=== PATIENT | female | born 1935 | race Caucasian/White ===

== ENCOUNTER 2022-06-08 14:47 | Inpatient (IN) | payer BC, OTHER ==
[~2022-06-08] VITALS: Ht 175.3 cm; Wt 72.1 kg
[~2022-06-08 14:47] MED LIST: DEXAMETHASONE SOD PHOSPHATE 4 MG/ML VIAL ONE; ONDANSETRON HCL 4 MG/2 ML VIAL ONE; PROPOFOL 200MG/ 20ML VIAL (DIPRIVAN) IV ONE; SEVOFLURANE 15 MIN GAS INH ONE; ceFAZolin SODIUM 2 GM VIAL ONE; fentaNYL CITRATE/PF 100 MCG/2 ML AMP ONE
--- NOTE | 2022-06-08 15:02 | NUR ---
Patient to ER bed 01 to gown for evaluation. Side rails up.
--- NOTE | 2022-06-08 15:05 | NUR ---
Pt brought by ambulance,Alert x 1, pt presents to ER altered, pt was found on the floor during a wellfare check, discoloration noted on R arm, intact ROM, skin is dry, pt unable to recall fall mechanism, VSS, will cont to monitor.
[2022-06-08 15:06] VITALS: BP_SYST 173
--- NOTE | 2022-06-08 15:47 | NUR ---
Pt off the unit for CT
--- NOTE | 2022-06-08 16:00 | NUR ---
Pt resting in bed, no s/s of distress
[2022-06-08 16:02] LABS: BASOPHILS % (AUTO) 0.4 % (0.0-2.0); EOSINOPHILS % (AUTO) 0.1 % (0.0-4.0); HEMATOCRIT 40.2 % (36-48); HEMOGLOBIN 13.3 g/dL (12.0-16.0); LYMPHOCYTES # (AUTO) 0.9 K/uL (1.0-5.5); LYMPHOCYTES % (AUTO) 8.6 % (20.5-51.5); MEAN CORPUSCULAR HEMOGLOBIN 28 pg (27-31); MEAN CORPUSCULAR HGB CONC 33 % (32-36); MEAN CORPUSCULAR VOLUME 85 fL (79.0-98.0); MONOCYTES # (AUTO) 0.8 K/uL (0.0-1.0); MONOCYTES % (AUTO) 7.8 % (1.7-9.3); NEUTROPHILS # (AUTO) 8.8 K/uL (1.8-7.7); NEUTROPHILS % (AUTO) 83.1 % (40.0-70.0); PLATELET COUNT (AUTO) 361 K/uL (130-430); RED BLOOD CELL COUNT(AUTO) 4.75 MIL/uL (4.2-6.2); RED CELL DISTRIBUTION WIDTH 15.5 % (9.0-15.0); WHITE BLOOD COUNT (AUTO) 10.6 K/uL (4.8-10.8)
[2022-06-08 16:50] LABS: INR 1.1 (0.8-1.2); PROTHROMBIN TIME 11.1 SECS (9.5-12.5)
[2022-06-08 16:52] LABS: BILIRUBIN,URINE NEGATIVE (NEGATIVE); CLARITY/URINE CLEAR (CLEAR); COLOR,URINE YELLOW (YELLOW); GLUCOSE,URINE NEGATIVE (NEGATIVE); KETONES,URINE 1+ (NEGATIVE); LEUKOCYTE ESTERASE ,URINE NEGATIVE (NEGATIVE); NITRITE, URINE NEGATIVE (NEGATIVE); PH,URINE 5.5 (5.0-8.0); PROTEIN URINE NEGATIVE (NEGATIVE); UROBILINOGEN,URINE 0.2 (0.2-1.0)
[2022-06-08 16:55] LABS: BLOOD, URINE TRACE (NEGATIVE)
[2022-06-08 16:58] LABS: ANION GAP 17 (5-15); CALCIUM 9.4 mg/dL (8.4-11.0); CHLORIDE 99 mmol/L (98-107); CREATININE 1.81 mg/dL (0.55-1.30); GLUCOSE 105 mg/dL (70-99); UREA NITROGEN, BLOOD 64 mg/dL (8-21)
[2022-06-08 17:08] LABS: GFR AFRICAN AMERICAN 36 mL/min (>90)
[2022-06-08 17:14] LABS: ALANINE AMINOTRANSFERASE 47 U/L (12-78); ALBUMIN 3.5 g/dL (3.4-4.8); ALCOHOL, BLOOD 3 mg/dL (<10); ASPARTATE AMINOTRANSFERASE 133 U/L (10-37); C-REACTIVE PROTEIN QUANT 7.4 mg/dL (0-0.5); TOTAL BILIRUBIN 1.2 mg/dL (0.0-1.0)
[2022-06-08] MEDS ORDERED: DEXTROSE 50% JECT 50 ML DISP.SYRIN IVP ONE (17:15)
[2022-06-08] MEDS ORDERED: INSULIN REGULAR, HUMAN 10 UNITS/0.1 ML, 3 ML VIAL IVP ONE (17:15)
[2022-06-08] MEDS ORDERED: SODIUM POLYSTYRENE SULFONATE 15 GM/60 ML UDBTL PO ONE ×2 (17:15→18:45)
[2022-06-08] MEDS ORDERED: NACL 0.9% 1,000 ML IV ONE (17:15)
[2022-06-08 17:16] LABS: ACETAMINOPHEN < 1 ug/mL (1-30)
[2022-06-08] MEDS ORDERED: NACL 0.9% 2,000 ML IV ONE (17:30)
[2022-06-08] MEDS ORDERED: ASPIRIN 81 MG TABLET(ECOTRIN) PO ONE (17:30)
[2022-06-08 17:35] LABS: ACETONE, SERUM TRACE (NEGATIVE); CKMB RELATIVE INDEX 4.5 (0.0-2.9); CREATINE KINASE MB 66.4 ng/mL (0-3.6)
--- NOTE | 2022-06-08 17:43 | NUR ---
Susy Nevarez (sister) [phone] ([place]).
[2022-06-08 17:46] LABS: BARBITURATE, URINE NEGATIVE (NEG <=200); BENZODIAZEPINE, URINE NEGATIVE (NEG <=150); CANNABINOID, URINE NEGATIVE (NEG <=50); COCAINE, URINE NEGATIVE (NEG <=150); METHAMPHETAMINES SCREEN,URINE NEGATIVE (NEG <=500); OPIATE, URINE NEGATIVE (NEG <=100); PHENCYCLIDINE SCREEN,URINE NEGATIVE (NEG <=25); UR TRICYCLIC ANTIDEPRESSANTS NEGATIVE (NEG <=300); URINE AMPHETAMINE NEGATIVE (NEG <=500); URINE METHADONE NEGATIVE (NEG <=200); URINE OXYCODONE SCREEN NEGATIVE (NEG <=100); URINE PROPOXYPHENE SCREEN NEGATIVE (NEG <=300)
[2022-06-08 17:51] LABS: BACTERIA,URINE FEW /HPF (None Seen); MUCUS,URINE None Seen /LPF (None Seen); RBC,URINE 0-3 /HPF (0-3); WBC,URINE 0-3 /HPF (0-3)
--- NOTE | 2022-06-08 17:57 | NUR ---
Admit bed requested Patient will be admitted to care of Dr Moore.. Admitted to Tele unit. Diagnosis ALOC, HYPERKALEMIA Inpatient (Yes or No) Yes Observation (Yes or No) No Orientation concerns or request close to nursing station (Yes or No) YES Covid Status negative On vent or bipap N/A Isolation requirements N/A Needs a sitter N/A From Home (Yes or if No enter name of facility) YES Requires Dialysis (Yes or No) N/A Med Rec Completed (Yes of No)
--- NOTE | 2022-06-08 18:36 | NUR ---
16 # FR Del Cid catheter with use of sterile technique. Immediate return of 200 cc urine noted. Bedside drainage bag placed below level of bladder. Urine sample collected and sent to lab. Pt tolerated procedure . Patient unable to toilet self.
[2022-06-08] MEDS ORDERED: PANTOPRAZOLE SODIUM 40 MG/VIAL (PROTONIX) IVP ONE (18:45)
--- NOTE | 2022-06-08 18:51 | NUR ---
Unknown medications, pt can not recall name of her medications
--- NOTE | 2022-06-08 19:26 | NUR ---
Patient will be admitted to care of DR VAZQUEZ . Admitted to TELE unit. Will go to room 121C. . Complete and up to date summary report printed. SBAR report to be given at bedside with opportunity for questions.
--- NOTE | 2022-06-08 19:30 | NUR ---
ADMISSION NOTE Received patient from ER via gurney. Patient admitted with diagnosis of ALOC, HYPERKALEMIA. Patient is awake, alert, oriented X 1. Patient oriented to hospital room, call light, toileting, pain management and safety-teach back done. Patient informed that that their room number is 121C. Personal belongings checked and Belongings List documented. Call light within reach.
[2022-06-08] MEDS: PANTOPRAZOLE SODIUM 40 MG/VIAL (PROTONIX) IVP SCH (20:07)
[2022-06-08] MEDS: SODIUM BICARBONATE 8.4% JECT 100 MEQ in D5W 1,000 ML IVP SCH (20:09)
--- NOTE | 2022-06-08 20:29 | NUR ---
CONSULTATION PAGED/CALLED Reason for Consultation: ELEVATED TROP Person Who was Notified: MARIA T Consulting Physician: ROGER State Trooper Specialty: Ordering Physician: TAYLOR
[2022-06-08 20:41] LABS: CALCIUM 8.7 mg/dL (8.4-11.0); CREATININE 1.64 mg/dL (0.55-1.30)
[2022-06-08 20:42] LABS: BASOPHILS % (AUTO) 0.2 % (0.0-2.0); EOSINOPHILS % (AUTO) 0.1 % (0.0-4.0); HEMATOCRIT 32.7 % (36-48); HEMOGLOBIN 11.1 g/dL (12.0-16.0); LYMPHOCYTES # (AUTO) 0.7 K/uL (1.0-5.5); LYMPHOCYTES % (AUTO) 7.8 % (20.5-51.5); MEAN CORPUSCULAR HEMOGLOBIN 28 pg (27-31); MEAN CORPUSCULAR HGB CONC 34 % (32-36); MEAN CORPUSCULAR VOLUME 83 fL (79.0-98.0); MONOCYTES % (AUTO) 10.6 % (1.7-9.3); NEUTROPHILS # (AUTO) 7.5 K/uL (1.8-7.7); NEUTROPHILS % (AUTO) 81.3 % (40.0-70.0); PLATELET COUNT (AUTO) 316 K/uL (130-430); RED BLOOD CELL COUNT(AUTO) 3.92 MIL/uL (4.2-6.2); RED CELL DISTRIBUTION WIDTH 15.1 % (9.0-15.0); WHITE BLOOD COUNT (AUTO) 9.3 K/uL (4.8-10.8)
--- NOTE | 2022-06-08 22:00 | NUR ---
RIGHT WRIST SWELLING Pt noted to have right wrist swelling, warm to touch. Pulse palpable and pt denies pain and does not remember having a fall. Per ER documentation, EMS found pt on the floor with her right arm underneath her. Informed Dr Moore, ordered XR
[2022-06-08] MEDS ORDERED: DEXTROSE 50% JECT 50 ML DISP.SYRIN IVP PRN ×2 (22:30→23:45)
[2022-06-08 22:58] VITALS: BP_SYST 149
--- NOTE | 2022-06-08 23:45 | NUR ---
XRAY RESULTS XR showed right wrist fx. Dr Moore ordered to splint R hand and forearm.
[2022-06-09] VITALS: BP_SYST 130
--- NOTE | 2022-06-09 00:15 | NUR ---
RIGHT WRIST/FOREARM SPLINTED BY EMT FROM ER
--- NOTE | 2022-06-09 04:42 | NUR ---
CONSULTATION PAGED/CALLED Reason for Consultation: WRIST FX Person Who was Notified: JAVI Consulting Physician: CHIP COMBS [employer] Specialty: Ordering Physician: TAYLOR
[2022-06-09 06:29] LABS: CALCIUM 7.7 mg/dL (8.4-11.0); CREATININE 1.48 mg/dL (0.55-1.30)
[2022-06-09 06:38] LABS: ALBUMIN 2.6 g/dL (3.4-4.8); PHOSPHORUS 2.8 mg/dL (2.7-4.5)
[2022-06-09] MEDS: SODIUM BICARBONATE 8.4% JECT 100 MEQ in D5W 1,000 ML IVP SCH (06:38)
--- NOTE | 2022-06-09 06:48 | NUR ---
CLOSING NOTE Pt is awake lying in bed watching TV. No s/s of respiratory distress. Breathing even and unlabored on RA. IV site intact and patent saline lock. Splint on right wrist/forearm in place. Del Cid catheter intact and draining by gravity. All needs met throughout shift. Fall and safety precautions in place with bed in lowest position, bed alarm on, and call light within reach
[2022-06-09 07:11] LABS: BASOPHILS % (AUTO) 0.1 % (0.0-2.0); EOSINOPHILS % (AUTO) 0.2 % (0.0-4.0); HEMATOCRIT 33.6 % (36-48); HEMOGLOBIN 11.3 g/dL (12.0-16.0); LYMPHOCYTES # (AUTO) 0.6 K/uL (1.0-5.5); LYMPHOCYTES % (AUTO) 6.8 % (20.5-51.5); MEAN CORPUSCULAR HEMOGLOBIN 28 pg (27-31); MEAN CORPUSCULAR HGB CONC 34 % (32-36); MEAN CORPUSCULAR VOLUME 83 fL (79.0-98.0); MONOCYTES # (AUTO) 0.8 K/uL (0.0-1.0); MONOCYTES % (AUTO) 8.9 % (1.7-9.3); NEUTROPHILS # (AUTO) 7.6 K/uL (1.8-7.7); PLATELET COUNT (AUTO) 316 K/uL (130-430); RED BLOOD CELL COUNT(AUTO) 4.06 MIL/uL (4.2-6.2); RED CELL DISTRIBUTION WIDTH 15.2 % (9.0-15.0)
[2022-06-09 08:00] VITALS: BP_SYST 137
--- NOTE | 2022-06-09 08:00 | NUR ---
CRITICAL LAB: fidencio from Laboratory called with critical lab value troponin 302. Medical record number and patient name verified. Read back of values done. notified of value. labs orders given at this time.
[2022-06-09] MEDS: PANTOPRAZOLE SODIUM 40 MG/VIAL (PROTONIX) IVP SCH ×2 (09:13→21:00)
--- NOTE | 2022-06-09 10:10 | NUR ---
CRITICAL LAB: fidencio from Laboratory called with critical lab value 367. Medical record number and patient name verified. Read back of values done. notified of value. orders given at this time.
[2022-06-09 11:12] LABS: CKMB RELATIVE INDEX 2.4 (0.0-2.9); CREATINE KINASE MB 16.5 ng/mL (0-3.6)
[2022-06-09 11:20] VITALS: BP_SYST 145
[2022-06-09 15:55] VITALS: BP_SYST 134
[2022-06-09] MEDS: QUEtiapine FUMARATE 25 MG TABLET PO SCH ×3 (17:45→21:00)
--- NOTE | 2022-06-09 18:42 | NUR ---
pt awake,confused,vss,IVF continue infusing,removed groundwater monitoring technician this am, here and notified,d/c groundwater monitoring technician per order.pt also removed right arm splint,tried to climb out of bed,offered seroquel po as per order,pt refused and said " I don't want to take meds,help me get out of bed" side rails up,safety maintained. came and seen pt for neuro consult.and notified pt refused meds order received for PT eval.needs attended,hourly rounds made safety maintained.
[2022-06-09 20:00] VITALS: BP_SYST 159
[2022-06-09] MEDS: BENZTROPINE MESYLATE 1 MG TABLET PO SCH (21:00)
--- NOTE | 2022-06-09 21:00 | NUR ---
REFUSING MEDS/IV Pt pulled out IV and is refusing a new one despite efforts. Also refusing medications and accucheck. Right wrist splint reapplied
--- NOTE | 2022-06-09 23:24 | NUR ---
SPOKE W/ DR VAZQUEZ Informed him pt c/o pain in right wrist. Also informed him that pt pulled out her IV and is refusing a new one and that she also refused all her medications including accucheck. Pt stated that she will take medication for pain only. ordered Ultram 50mg Q4PRN
[2022-06-09] MEDS: traMADol HCL HCL 50 MG TABLET (ULTRAM) PO PRN (23:30)
[2022-06-10] VITALS: BP_SYST 141
--- NOTE | 2022-06-10 01:44 | NUR ---
PT REMOVED ARM SPLINT Stated she took it off because it '"doesn't hurt anymore". Educated that it must remain on until surgery even if the pain is controlled. Reapplied, tolerated well
--- NOTE | 2022-06-10 02:34 | NUR ---
IV INSERTION 20G LFA, patent and intact. IVF now infusing
[2022-06-10] MEDS: SODIUM BICARBONATE 8.4% JECT 100 MEQ in D5W 1,000 ML IVP SCH ×2 (02:37→12:43)
--- NOTE | 2022-06-10 06:39 | NUR ---
CLOSING NOTE Pt is lying in bed, eyes closed. No s/s of respiratory distress. Breathing even and unlabored on RA. IV site intact and patent with fluids running at ordered rate. Del Cid catheter intact draining by gravity. Right wrist/forearm splint in place and elevated. All needs met throughout shift. Fall and safety precautions in place with bed in lowest position, bed alarm on, and call light within reach
[2022-06-10 06:57] LABS: BASOPHILS % (AUTO) 0.2 % (0.0-2.0); EOSINOPHILS # (AUTO) 0.1 K/uL (0.0-0.4); EOSINOPHILS % (AUTO) 1.1 % (0.0-4.0); HEMATOCRIT 29.7 % (36-48); HEMOGLOBIN 10.2 g/dL (12.0-16.0); LYMPHOCYTES # (AUTO) 0.9 K/uL (1.0-5.5); LYMPHOCYTES % (AUTO) 11.9 % (20.5-51.5); MEAN CORPUSCULAR HEMOGLOBIN 28 pg (27-31); MEAN CORPUSCULAR HGB CONC 34 % (32-36); MEAN CORPUSCULAR VOLUME 82 fL (79.0-98.0); MONOCYTES # (AUTO) 0.6 K/uL (0.0-1.0); MONOCYTES % (AUTO) 7.1 % (1.7-9.3); NEUTROPHILS # (AUTO) 6.3 K/uL (1.8-7.7); NEUTROPHILS % (AUTO) 79.7 % (40.0-70.0); PLATELET COUNT (AUTO) 240 K/uL (130-430); WHITE BLOOD COUNT (AUTO) 7.9 K/uL (4.8-10.8)
[2022-06-10 07:03] LABS: ALANINE AMINOTRANSFERASE 29 U/L (12-78); ANION GAP 6 (5-15); ASPARTATE AMINOTRANSFERASE 60 U/L (10-37); CALCIUM 7.3 mg/dL (8.4-11.0); CHLORIDE 98 mmol/L (98-107); CHOLESTEROL 95 mg/dL (<200); CREATININE 1.03 mg/dL (0.55-1.30); GLUCOSE 148 mg/dL (70-99); HDL CHOLESTEROL 54 mg/dL (>55); THYROID STIMULATING HORMONE 1.08 uIu/mL (0.34-4.82); TOTAL BILIRUBIN 0.8 mg/dL (0.0-1.0); TRIGLYCERIDES 72 mg/dL (30-150); UREA NITROGEN, BLOOD 24 mg/dL (8-21)
--- NOTE | 2022-06-10 07:45 | NUR ---
REFUSED BLOOD SUGAR
[2022-06-10 08:00] VITALS: BP_SYST 131
[2022-06-10 08:05] LABS: CKMB RELATIVE INDEX 1.6 (0.0-2.9); CREATINE KINASE MB 6.5 ng/mL (0-3.6)
[2022-06-10] MEDS ORDERED: POTASSIUM CHLORIDE 20 MEQ/PKT PACKET PO ONE (09:00)
[2022-06-10] MEDS: BENZTROPINE MESYLATE 1 MG TABLET PO SCH ×2 (09:33→20:36)
[2022-06-10] MEDS: PANTOPRAZOLE SODIUM 40 MG/VIAL (PROTONIX) IVP SCH (09:33)
[2022-06-10] MEDS: QUEtiapine FUMARATE 25 MG TABLET PO SCH ×2 (09:34→20:36)
[2022-06-10 11:45] VITALS: BP_SYST 151
[2022-06-10] MEDS ORDERED: POTASSIUM CHLORIDE 20 MEQ TAB.PRT.SR PO ONE (13:45)
--- NOTE | 2022-06-10 15:26 | NUR ---
SILICATOR ACSW Toya responded to a Social Service consult for "decision making". ACSW Toya reviewed notes and located Patient's sister Susy Nevarez ACSW reviewed card that was attached to flower delivery and they had the names Bjorn and Lacie ACSW consulted with assigned YADI Parry who shared patient is still confused. She shared Physician's are inquiring into who will consent for treatment. ACSW contacted Susy who confirms she is patient's sister and shares she resides in [place]. She also shared patient also has another sister Noemy Burnett who is blind and resides in [place]. Susy also confirmed patient's spouse is and she has no children. ACSW inquired into her knowledge of Anatoly Alvarez who is on facesheet, she was not aware of that person. ACSW also inquired into her knowledge of Bjorn and Lacie, to which she shared these are her banker friends in [place]. She also stated she is unaware of any Advance Directive etc. ACSW informed her patient continues to be confused. Susy stated she is willingly to serve as patient's Next of Kin and provided permission to be contacted for consents and condition updates. ACSW Toya and YADI Parry met with patient at bedside. ACSW completed introductions and reason for referral. Patient was not alert to place, date, or how she got to facility. ACSW asked who Anatoly Alvarez (on facesheet) she responded "doesn't matter", ACSW asked about her sister she responded "doesn't matter". ACSW provided updated contact info for patient's Next of Kin to YADI Parry ACSW emailed admitting to request update to patient's contacts Diffusion Furnace Operator will continue to be available as needed
[2022-06-10 15:30] VITALS: BP_SYST 132
--- NOTE | 2022-06-10 17:57 | NUR ---
PATIENT REFUSED BLOOD SUGAR CHECK
[2022-06-10] MEDS: LR 1,000 ML IV SCH (18:02)
--- NOTE | 2022-06-10 18:54 | NUR ---
PATIENT RESTING COMFORTABLY IN BED, NO S/SX OF PAIN OR DISCOMFORT OBSERVED, WILL ENDORSE CARE TO PM NURSE
[2022-06-10 20:00] VITALS: BP_SYST 157
[2022-06-11] VITALS: BP_SYST 138
[2022-06-11 04:00] VITALS: BP_SYST 135
[2022-06-11 06:55] LABS: BASOPHILS % (AUTO) 0.1 % (0.0-2.0); EOSINOPHILS # (AUTO) 0.2 K/uL (0.0-0.4); EOSINOPHILS % (AUTO) 2.4 % (0.0-4.0); HEMATOCRIT 32.7 % (36-48); LYMPHOCYTES # (AUTO) 0.5 K/uL (1.0-5.5); LYMPHOCYTES % (AUTO) 6.4 % (20.5-51.5); MEAN CORPUSCULAR HEMOGLOBIN 28 pg (27-31); MEAN CORPUSCULAR HGB CONC 34 % (32-36); MEAN CORPUSCULAR VOLUME 83 fL (79.0-98.0); MONOCYTES # (AUTO) 0.5 K/uL (0.0-1.0); MONOCYTES % (AUTO) 6.9 % (1.7-9.3); NEUTROPHILS # (AUTO) 6.2 K/uL (1.8-7.7); NEUTROPHILS % (AUTO) 84.2 % (40.0-70.0); PLATELET COUNT (AUTO) 253 K/uL (130-430); RED BLOOD CELL COUNT(AUTO) 3.95 MIL/uL (4.2-6.2); RED CELL DISTRIBUTION WIDTH 15.2 % (9.0-15.0); WHITE BLOOD COUNT (AUTO) 7.4 K/uL (4.8-10.8)
[2022-06-11 08:00] VITALS: BP_SYST 161
[2022-06-11 08:03] LABS: ANION GAP 6 (5-15); CALCIUM 7.9 mg/dL (8.4-11.0); CHLORIDE 102 mmol/L (98-107); CREATININE 1.13 mg/dL (0.55-1.30); GLUCOSE 104 mg/dL (70-99); UREA NITROGEN, BLOOD 15 mg/dL (8-21)
[2022-06-11] MEDS: LR 1,000 ML IV SCH ×2 (08:36→21:51)
[2022-06-11] MEDS: PANTOPRAZOLE SODIUM 40 MG/VIAL (PROTONIX) IV SCH (08:42)
[2022-06-11] MEDS: BENZTROPINE MESYLATE 1 MG TABLET PO SCH ×2 (08:43→20:46)
[2022-06-11] MEDS: cloNIDine HCL 0.1 MG TABLET PO PRN (08:43)
[2022-06-11] MEDS: QUEtiapine FUMARATE 25 MG TABLET PO SCH ×2 (08:44→20:46)
[2022-06-11] MEDS: traMADol HCL HCL 50 MG TABLET (ULTRAM) PO PRN (08:45)
--- NOTE | 2022-06-11 12:35 | NUR ---
patient transported to OR for fracture repair
--- NOTE | 2022-06-11 12:53 | NUR ---
Dietitian Recommendations * Advance to full liquid diet, then GI Soft diet, then regular * Consider Ensure HP BID (provides 700 kcal and 40 g PRO) * Consider wound supplements: MVI, 250 mg VIT C, Dane BID * Consider 220mg ZnSO4 x 14 days for wound healing GS, MPH, RD Please refer to RD Assessment for further details. Thanks! Addendum: 06/11/22 at [address] Amended: Links added.
[2022-06-11] MEDS ORDERED: LABETALOL 100 MG/ 20ML VIAL IVP PRN (13:00)
[2022-06-11] MEDS ORDERED: MEPERIDINE HCL/PF 25 MG/ML DISP.SYRIN IVP PRN (13:00)
[2022-06-11] MEDS ORDERED: LR 1,000 ML IV SCH (13:00)
[2022-06-11] MEDS ORDERED: hydrALAZINE HCL 20 MG/ML VIAL IVP PRN (13:00)
[2022-06-11] MEDS ORDERED: HYDROmorphone 1 MG/ML INJ. CARTRIDGE IVP PRN ×2 (13:00)
[2022-06-11] MEDS ORDERED: METOCLOPRAMIDE HCL 10 MG/2 ML VIAL IVP PRN (13:00)
--- NOTE | 2022-06-11 14:04 | NUR ---
patient returned from OR,report received from balwinder rn, patient resting comfortably, no s/x of distress, vs WNL
--- NOTE | 2022-06-11 15:40 | NUR ---
DISCHARGE PLANNING ACSW Toya faxed packet and DC to SNF order to [facility]:
[2022-06-11 16:02] VITALS: BP_SYST 127
--- NOTE | 2022-06-12 08:15 | NUR ---
THIS RN TO ENDORSE 0745 BLOOD SUGAR NOT COMPLETED- PT REFUSED AT THE TIME OF CARRYING OUT MD ORDERS. NOTE eMAR AND FLOWSHEETS.
[2022-06-12] MEDS: PANTOPRAZOLE SODIUM 40 MG/VIAL (PROTONIX) IV SCH (08:58)
[2022-06-12] MEDS: QUEtiapine FUMARATE 25 MG TABLET PO SCH ×2 (09:00→21:44)
[2022-06-12] MEDS: BENZTROPINE MESYLATE 1 MG TABLET PO SCH ×2 (09:00→21:44)
[2022-06-12 09:06] VITALS: BP_SYST 166
[2022-06-12] MEDS ORDERED: MULTIVITAMINS TAB 1 TABLET PO ONE (15:00)
[2022-06-12 17:38] VITALS: BP_SYST 160
[2022-06-12 17:42] VITALS: BP_SYST 156
[2022-06-12] MEDS: LR 1,000 ML IV SCH (17:54)
[2022-06-12] MEDS: MULTIVITAMINS TAB 1 TABLET PO SCH (21:44)
[2022-06-12] MEDS: cloNIDine HCL 0.1 MG TABLET PO PRN (21:45)
[2022-06-12] MEDS: traMADol HCL HCL 50 MG TABLET (ULTRAM) PO PRN (21:46)
--- NOTE | 2022-06-13 00:13 | NUR ---
PT WAS REPOSITION BED BATH WAS DONE Z NAYANA WAS APPLIED
[2022-06-13 00:46] VITALS: BP_SYST 131
[2022-06-13] MEDS: LR 1,000 ML IV SCH ×2 (02:27→10:14)
[2022-06-13] MEDS: PANTOPRAZOLE SODIUM 40 MG/VIAL (PROTONIX) IV SCH (10:17)
[2022-06-13] MEDS: BENZTROPINE MESYLATE 1 MG TABLET PO SCH ×2 (10:23→22:04)
[2022-06-13] MEDS: MULTIVITAMINS TAB 1 TABLET PO SCH ×2 (10:25→22:04)
[2022-06-13] MEDS: QUEtiapine FUMARATE 25 MG TABLET PO SCH ×2 (10:26→21:00)
[2022-06-13 12:30] VITALS: BP_SYST 150
[2022-06-13 16:41] VITALS: BP_SYST 154
--- NOTE | 2022-06-13 18:11 | NUR ---
END OF SHIFT SUMMARY: PATIENT HAS SPENT THE DAY VERY QUIETLY WITH SLIGHT COMPLAINTS AND CONCERNS EARLIER IN THE DAY. HER CONCERNS OF PAIN HAD TO DO WITH POSITIONING AND SEVERAL TIMES HAD TO GIVE PATIENT BED WALSH AND CLEAN HER UP. OTHERWISE SHE HAS SPENT THE DAY SLEEPING DEEPLY. PATIENT IS AROUSABLE BUT RETURNING TO SLEEP RAPIDLY. PATIENT TOOK MEDS EASILY BUT SHE ATE SMALL AMOUNTS THROUGHOUT THE DAY AT MEAL TIMES. OTHERWISE, PATIENT WAS STABLE WITH NO SIGNS OR SYMPTOMS OF ACUTE DISTRESS AT THE END OF THE SHIFT.
[2022-06-13 20:20] VITALS: BP_SYST 123
[2022-06-14 00:38] VITALS: BP_SYST 113
--- NOTE | 2022-06-14 01:12 | NUR ---
BED BATH WAS DONE Z GAURD WAS APPLIED TO BOTTOM PT ALSO WAS REPOSITION WITH PILLOWS
[2022-06-14] MEDS: LR 1,000 ML IV SCH ×2 (01:46→21:53)
[2022-06-14 08:04] VITALS: BP_SYST 124
[2022-06-14] MEDS: MULTIVITAMINS TAB 1 TABLET PO SCH ×2 (08:44→21:53)
[2022-06-14] MEDS: PANTOPRAZOLE SODIUM 40 MG/VIAL (PROTONIX) IV SCH (08:44)
[2022-06-14] MEDS: BENZTROPINE MESYLATE 1 MG TABLET PO SCH ×2 (08:44→21:53)
[2022-06-14] MEDS: QUEtiapine FUMARATE 25 MG TABLET PO SCH ×2 (08:45→22:03)
--- NOTE | 2022-06-14 11:33 | NUR ---
RN MEDICALLY CLEARED PATIENT FOR PT, HOWEVER PATIENT SEEMED AGITATED WHEN THERAPIST ENTERED ROOM AND REFUSED TO WORK WITH THERAPIST TODAY.
[2022-06-14 16:52] VITALS: BP_SYST 139
--- NOTE | 2022-06-14 18:26 | NUR ---
Nutrition F/U: Admitting Diagnosis: ALOC and hyperkalemia Reviewed Pertinent Medical/Surgical Hx Medical Record; RN; physician; patient Medical History Comment: per EMR: 69-year-old elderly woman who was brought in by EMS from her home for altered mental status. Per patient's neighbor, she lives alone. Her 12 years ago and she does not have any children. Neighbor states that the patient once in a while will notice that the food that is routinely delivered to her was sitting outside longer than usual, so a welfare check was called for. On arrival, patient was found consciously laying on the floor with her right arm underneath her and the house was a mess. Patient's neighbor is unaware of her medical history. Patient is only oriented to her name. Subjective Information: RD rounded to patient room and s/w patient at bedside. Pt informed RD she did not have good appetite then patient unable to keep eyes open and fell asleep. Unable to obtain nutrition hx from pt this visit. RD s/w patient RN and MD: RN endorses patient is not eating well and refusing most meals. RD provided recommendations for 1:1 feeding assistance at all meals for improved PO intake + ONS BID, agreeable to RD recs. If patient PO does not improve, consider nutrition support. Per EMR, Pt refused breakfast and lunch 06/13 however 100% of dinner documented. RN reports no BM 06/14 during his shift. 1 x BM documented per EMR late last evening. Current Diet Order/Nutrition Support: Mechanical Soft x 3 days Patient/Significant Other Unable To Verbalize Education Provided Not Indicated Pertinent Medications: Protonix iv, LR @ 70mL, MVI Pertinent Labs: Drawn 06/11 - BG 104 H, Ca 7.9 L Height (Feet) 5 feet Height (Inches) 9.00 inches Weight (Pounds) 159 pounds Patient Weight 72.121 kg Body Mass Index 23.48 kg/m2 %IBW 110 [place]/Adjusted Body Weight 145#/ 66 kg Recent Weight Change unable to assess Weight Status Appropriate Gastrointestinal Symptoms None Last BM Jun 14, 2022 x 1 Food Allergies Yes Usual Diet At Home Unknown Skin Integrity Comment: Ted Score 14: L/R wrists ecchymosis, L buttock wound; 2+ pitting edema R wrist per EMR 06/14 Current % PO Poor: 33% x 3 documented meals (100% x 1 + refused x 2 meals) Estimated Energy Expenditure (kcals/day) 1650- 1980 kcal (25-30 kcal/kg IBW d/t GERIAT) Estimated Protein Required (g/day) 92-119 g (1.4-1.8 g/kg IBW d/t wounds) Estimated Fluid Required (l/day) 1.6-1.9L (1mL/kcal maintenance) Problem/Etiology/Signs/Symptoms Increased energy and protein utilization r/t metabolic demands a/e/b estimated nutritional needs for wound healing (On-going) Expected Outcomes/Goals PO intake provides >85% estimated nutrient needs, nutrition-related labs trending WNL, improvements in skin integrity, BM q1-3 days Dietitian Recommendations * Continue Mechanical Soft Diet * Ordered: Ensure HP BID (provides 700 kcal and 40 g PRO) + Dane BID * Provide 1:1 feeding assistance with all meals Follow Up High Risk: F/U in 2-3days
--- NOTE | 2022-06-14 18:39 | NUR ---
Dietitian Recommendations * Continue Mechanical Soft Diet * Ordered: Ensure HP BID (provides 700 kcal and 40 g PRO) + Dane BID * Provide 1:1 feeding assistance with all meals Please refer to nutrition f/u for details, thanks! Enriqueta Hilton MPH, RDN
--- NOTE | 2022-06-14 19:23 | NUR ---
PT HAS BEEN STABLE, VITALS WNL. BLOOD SUGAR WNL BUT ON THE LOW SIDE. ENCOURAGED PT TO EAT AND ASSSTED WITH MEALS BUT PT TOOK ON A COUPLE BITES WITH EACH MEALS. EVEN TRIED REFUSING HER BLOOD SUGAR CHECKS.
[2022-06-14 20:25] VITALS: BP_SYST 145
[2022-06-14] MEDS: traMADol HCL HCL 50 MG TABLET (ULTRAM) PO PRN (22:04)
[2022-06-15 00:57] VITALS: BP_SYST 127
[2022-06-15 07:36] VITALS: BP_SYST 143
[2022-06-15] MEDS: MULTIVITAMINS TAB 1 TABLET PO SCH ×2 (08:39→21:48)
[2022-06-15] MEDS: BENZTROPINE MESYLATE 1 MG TABLET PO SCH ×2 (08:40→21:48)
[2022-06-15] MEDS: QUEtiapine FUMARATE 25 MG TABLET PO SCH ×2 (08:40→21:48)
[2022-06-15] MEDS: PANTOPRAZOLE SODIUM 40 MG/VIAL (PROTONIX) IV SCH (08:40)
--- NOTE | 2022-06-15 09:50 | NUR ---
RN MEDICALLY CLEARED PATIENT FOR PT. PATIENT INITIALLY CONSENTED TO PT HOWEVER WHEN THERAPIST ASSISTED WITH GETTING PATIENT OUT OF BED, PATIENT COMPLAINED OF PAIN AND REFUSED FURTHER TREATMENT. Addendum: 06/15/22 at 1804 by Sintia Jay PT PHYSICAL THERAPY CO-SIGN The Physical Therapy Progress Notes documented by Curtain Roller Assembler have been reviewed. Reviewed/Co-Signed by: Sintia Jay PT Documentation Done by:RITU MALCOLM PTA REC: SNF
[2022-06-15] MEDS: LR 1,000 ML IV SCH (11:39)
[2022-06-15 12:15] VITALS: BP_SYST 130
--- NOTE | 2022-06-15 15:19 | NUR ---
ST EVALUATION COMPLETED. ST TX NOT INDICATED AT THIS TIME. PT DEMONSTRATES INCONSISTENT COUGH WITH THIN LIQUIDS AND FATIGUES EASILY WITH MASTICATION OF FOODS. RECOMMEND PO DIET OF PUREE/NECTAR THICK LIQUIDS. 1:1 SUPERVISION AND FULL ASPIRATION PRECAUTIONS.
--- NOTE | 2022-06-15 15:35 | NUR ---
WOUND EVALUATION: Wound Consult received from Dr. Moore. Thank you, Dr. Moore, for the consult. Patient received in a Arely Bed with a mattress, awake, alert, confused. Patient is unable to turn independently. Ted Score is a 14. Past Medical History: Prior history unknown secondary to patient's mental status. Recent Labs: WBC 7.4, RBC 3.95, hemoglobin 11.0, hematocrit 32.7, glucose 104, calcium 7.9, albumin 2.0. Microbiology: Blood culture result negative. Intrinsic factors that delay wound healing: Hypoalbuminemia. Extrinsic factors that delay wound healing: Decreased mobility. Per note by Dr. Mir: 'She was found by paramedics down in her house with her right hand under her body. She was unable to move...The patient has multiple bruises and gillis on her legs consistent with being on floor for a long time.' Wound Assessment: 1. Left Buttock near Ischium: Unstageable pressure ulcer, present on admission. Wound bed has 95% black slough, 5% yellow slough. No odor, scant yellow drainage. Periwound intact. Wound measures 4.5 cm x 6.2 cm. 2. Right Buttock near Ischium: Unstageable pressure ulcer, present on admission. Wound bed has 5% pink tissue, 20% dark yellow slough, 75% yellow slough. No odor, scant yellow drainage. Periwound intact. Wound measures 5.6 cm x 6.0 cm. Recommend: Cleanse wounds with normal saline. Apply moisture barrier cream to periwounds. Apply Venelex ointment to wound beds. Cover with nonadhesive foam dressings, secure with transparent dressings. Perform wound care daily, and as needed for dressing soiling or dislodgment.. 3. 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 Site has 100% pink tissue. No odor, no drainage. Periwound intact. Wound measures 1.0 cm x 1.5 cm. Recommend: Cleanse site with normal saline. Apply moisture barrier cream to periwound. Apply Therahoney dressing (cut to size) to site. Cover with Sacral foam dressing. Perform site care daily, and as needed for dressing soiling or dislodgment. 4. Right Lateral Thigh near Greater Trochanter: sDTI vs ecchymosis, present on admission. Site is consistent with (patient lying on her right side) over her arm as stated in admission notes. Site has purple discoloration. No odor, no drainage. Recommend: No dressing needed. Continue to monitor site every shift. Do not allow patient to lie on site at any time. 5. Right Anterior Knee: Dried abrasion with brown scab, present on admission. No odor, no drainage. 6. Right Medial Knee: Dried abrasion with brown scab, present on admission. No odor, no drainage. 7. Left Medial Knee: Dried abrasion with brown scab, present on admission. No odor, no drainage. Recommend: No dressings needed. Continue to monitor sites every shift. Also recommend: Reposition patient side to side only every 2 hours with pillow support and off-load pressure areas with pillows for pressure re-distribution. Offload, elevate and float bilateral heels with pillows. Perform skin care and monitor skin integrity Q shift. Use moisture barrier cream on buttocks and other moisture susceptible areas QID and as needed for soiling. Place patient on a P500 low air-loss mattress. Recommend surgical consult for pressure ulcers if patient is stable.
[2022-06-15] MEDS ORDERED: HONEY WOUND DRESSING 1 EACH TP PRN (16:30)
[2022-06-15 16:35] VITALS: BP_SYST 134
[2022-06-15] MEDS ORDERED: HONEY WOUND DRESSING 1 EACH TP ONE (17:15)
[2022-06-15] MEDS ORDERED: BALSAM PERU/CASTOR OIL 56.7 GM OINT...G. TP ONE (17:30)
--- NOTE | 2022-06-15 19:49 | NUR ---
ENDORSED TO YADI PURDY THAT PT HAS AN ORDER FOR ANTONY CATH DUE TO WOUND BUT WE ARE NO ABLE TO INSERT A NEW ONE.
[2022-06-15 20:15] VITALS: BP_SYST 141
[2022-06-15] MEDS: traMADol HCL HCL 50 MG TABLET (ULTRAM) PO PRN (21:49)
--- NOTE | 2022-06-16 01:07 | NUR ---
NIEVES CATH: Explained procedure to the pt.Hardeep ORTEGA was at bedside holding pts leg. # 16 FR Nieves catheter with 10cc bulb inserted with use of sterile technique. Bulb inflated with 10cc sterile water. Immediate return of 900cc yellow color urine noted.nieves clamped and notified primary RN , Requested RN to un clamp after few min.Bedside drainage bag placed below level of bladder. Urine sample collected and sent to lab . Pt tolerated procedure well.
[2022-06-16] MEDS: LR 1,000 ML IV SCH ×2 (01:57→18:17)
[2022-06-16 02:58] VITALS: BP_SYST 138
[2022-06-16 03:51] LABS: BILIRUBIN,URINE NEGATIVE (NEGATIVE); BLOOD, URINE NEGATIVE (NEGATIVE); CLARITY/URINE CLEAR (CLEAR); COLOR,URINE YELLOW (YELLOW); GLUCOSE,URINE NEGATIVE (NEGATIVE); KETONES,URINE NEGATIVE (NEGATIVE); LEUKOCYTE ESTERASE ,URINE NEGATIVE (NEGATIVE); NITRITE, URINE NEGATIVE (NEGATIVE); PH,URINE 6.5 (5.0-8.0); PROTEIN URINE NEGATIVE (NEGATIVE); UROBILINOGEN,URINE 0.2 (0.2-1.0)
[2022-06-16 07:26] LABS: BASOPHILS % (AUTO) 0.8 % (0.0-2.0); EOSINOPHILS % (AUTO) 0.9 % (0.0-4.0); HEMOGLOBIN 11.4 g/dL (12.0-16.0); LYMPHOCYTES # (AUTO) 0.9 K/uL (1.0-5.5); MEAN CORPUSCULAR HEMOGLOBIN 28 pg (27-31); MEAN CORPUSCULAR HGB CONC 34 % (32-36); MEAN CORPUSCULAR VOLUME 82 fL (79.0-98.0); MONOCYTES # (AUTO) 0.3 K/uL (0.0-1.0); MONOCYTES % (AUTO) 9.8 % (1.7-9.3); NEUTROPHILS # (AUTO) 2.1 K/uL (1.8-7.7); NEUTROPHILS % (AUTO) 62.5 % (40.0-70.0); PLATELET COUNT (AUTO) 161 K/uL (130-430); RED BLOOD CELL COUNT(AUTO) 4.14 MIL/uL (4.2-6.2); RED CELL DISTRIBUTION WIDTH 15.1 % (9.0-15.0); WHITE BLOOD COUNT (AUTO) 3.3 K/uL (4.8-10.8)
[2022-06-16 08:01] LABS: ALANINE AMINOTRANSFERASE 18 U/L (12-78); ALBUMIN 1.7 g/dL (3.4-4.8); ANION GAP 2 (5-15); ASPARTATE AMINOTRANSFERASE 36 U/L (10-37); CALCIUM 7.4 mg/dL (8.4-11.0); CHLORIDE 102 mmol/L (98-107); CREATININE 1.08 mg/dL (0.55-1.30); GLUCOSE 102 mg/dL (70-99); TOTAL BILIRUBIN 0.3 mg/dL (0.0-1.0); UREA NITROGEN, BLOOD 20 mg/dL (8-21)
[2022-06-16] MEDS: PANTOPRAZOLE SODIUM 40 MG/VIAL (PROTONIX) IV SCH (11:37)
[2022-06-16] MEDS: MULTIVITAMINS TAB 1 TABLET PO SCH ×2 (11:38→22:27)
[2022-06-16] MEDS: BENZTROPINE MESYLATE 1 MG TABLET PO SCH ×2 (11:39→22:27)
[2022-06-16] MEDS: HONEY WOUND DRESSING 1 EACH TP SCH (11:40)
[2022-06-16] MEDS: BALSAM PERU/CASTOR OIL 56.7 GM OINT...G. TP SCH (11:41)
[2022-06-16 15:07] VITALS: BP_SYST 151
--- NOTE | 2022-06-16 17:24 | NUR ---
0800: SLEEPY HARD TO AROUSE, NO S/S OF ANY ACUTE DISTRESS NOTED. COMFORTABLE, NO C/O ANY PAIN OR DISCOMFORT @THIS TIME. RIGHT ARM CAST UP TO THE AC, SWELLING NOTED, CIRCULATION AND SENSORY CHECK W/IN NORMAL LIMIT. WILL CONTINUE TO REASSESS PATIENT PRN. 1030: SAW BY DR. TAYLOR KING TO INSERT NG-TUBE FOR FOOD AND MED, AND KEEP UNTIL CONDITION IMPROVE. 1200: INSERTED NG-TUBE RIGHT NARES APPROXIMATELY 65 CM, PLACEMENT VERIFIED BY AUSCULTATION WITH ANOTHER NURSE, KAYE OCAMPO. WILL START ON FEEDING ONCE FORMULA ARRIVE FROM DIETARY. 1400: FEEDING STARTED ORDERED WILL REASSESS FOR RESIDUAL AND IF PATIENT IS ABLE TO TOLERATE FEEDING. 1600: PATIENT IS MORE AWAKE AND RESPONSIVE TO STIMULI.
[2022-06-16] MEDS: QUEtiapine FUMARATE 25 MG TABLET PO SCH (18:16)
[2022-06-16 20:00] VITALS: BP_SYST 163
--- NOTE | 2022-06-16 20:00 | NUR ---
Opening note- received pt in bed. Nn NGT feeding with Jaity 1.5 at 30 ml/hr- residual <10 ml. Noticed dry blood on NG Tube insertion site- Rt nares. no s/sx of bleeding. Pt oriented x 1. S/p Rt wrist close reduction with pinning on 06/11. Rt arm with cast and kept elevated Rt arm on pillow. on Bilateral soft wrist restrain not to pull NGT. HOB elevation at least 30 deg.
[2022-06-16] MEDS: cloNIDine HCL 0.1 MG TABLET PO PRN (22:28)
[2022-06-17 00:12] VITALS: BP_SYST 141
--- NOTE | 2022-06-17 05:35 | NUR ---
Pt remains stable. Pt slept at night after she took ultram 1 tab via NGT. Pt has multiple pressure injury- sacrum stage 3, Left buttock DTI and Lt buttock DTI. Changed mepilex dressing last night. Bilateral knee dry abrasion. BS- WNL. F/C patent. On special mattress and turned frequently.
--- NOTE | 2022-06-17 08:32 | NUR ---
ATTENDING MD DR VAZQUEZ WAS CALLED, RE; RESTRAINTS ORDER AND ABN LAB. SPOKE TO JEZ.
[2022-06-17 09:04] VITALS: BP_SYST 147
--- NOTE | 2022-06-17 09:11 | NUR ---
Dr. Mir here to see the patient. No new orders received. Paged Dr. Moore to obtain order to renew restrain order. Awaiting for call back.
[2022-06-17 12:23] VITALS: BP_SYST 152
[2022-06-17] MEDS: MULTIVITAMINS TAB 1 TABLET PO SCH ×2 (12:52→21:00)
[2022-06-17] MEDS: PANTOPRAZOLE SODIUM 40 MG/VIAL (PROTONIX) IV SCH (12:52)
[2022-06-17] MEDS: BENZTROPINE MESYLATE 1 MG TABLET PO SCH ×2 (12:52→21:00)
[2022-06-17 16:00] VITALS: BP_SYST 144
[2022-06-17] MEDS: BALSAM PERU/CASTOR OIL 56.7 GM OINT...G. TP SCH (16:23)
[2022-06-17] MEDS: QUEtiapine FUMARATE 25 MG TABLET PO SCH (17:08)
[2022-06-17] MEDS: LR 1,000 ML IV SCH (20:43)
[2022-06-18 01:56] VITALS: BP_SYST 80
[2022-06-18 06:58] LABS: BASOPHILS % (AUTO) 0.5 % (0.0-2.0); EOSINOPHILS # (AUTO) 0.1 K/uL (0.0-0.4); EOSINOPHILS % (AUTO) 2.2 % (0.0-4.0); HEMATOCRIT 35.9 % (36-48); HEMOGLOBIN 11.8 g/dL (12.0-16.0); LYMPHOCYTES # (AUTO) 1.1 K/uL (1.0-5.5); MEAN CORPUSCULAR HEMOGLOBIN 27 pg (27-31); MEAN CORPUSCULAR HGB CONC 33 % (32-36); MEAN CORPUSCULAR VOLUME 83 fL (79.0-98.0); MONOCYTES # (AUTO) 0.4 K/uL (0.0-1.0); MONOCYTES % (AUTO) 8.9 % (1.7-9.3); NEUTROPHILS # (AUTO) 2.6 K/uL (1.8-7.7); NEUTROPHILS % (AUTO) 61.4 % (40.0-70.0); PLATELET COUNT (AUTO) 165 K/uL (130-430); RED BLOOD CELL COUNT(AUTO) 4.33 MIL/uL (4.2-6.2); RED CELL DISTRIBUTION WIDTH 15.2 % (9.0-15.0); WHITE BLOOD COUNT (AUTO) 4.2 K/uL (4.8-10.8)
--- NOTE | 2022-06-18 07:10 | NUR ---
OPENING NOTE Received report from YADI Cordero. Upon entering room. Patient is sleeping calmly. Restraints are noted on bilateral wrists. Cast noted on right wrist/forearm. Patient displays no s/s of pain or discomfort at this time. IV site remains intact at this time, fluids ongoing. Call light is within reach. safety precautions observed.
[2022-06-18 07:23] LABS: ALANINE AMINOTRANSFERASE 17 U/L (12-78); ANION GAP 2 (5-15); ASPARTATE AMINOTRANSFERASE 40 U/L (10-37); CALCIUM 7.7 mg/dL (8.4-11.0); CHLORIDE 101 mmol/L (98-107); CREATININE 0.93 mg/dL (0.55-1.30); GLUCOSE 100 mg/dL (70-99); PHOSPHORUS 2.2 mg/dL (2.7-4.5); TOTAL BILIRUBIN 0.4 mg/dL (0.0-1.0); UREA NITROGEN, BLOOD 19 mg/dL (8-21)
[2022-06-18 08:09] VITALS: BP_SYST 179
[2022-06-18] MEDS: PANTOPRAZOLE SODIUM 40 MG/VIAL (PROTONIX) IV SCH (08:30)
[2022-06-18] MEDS: MULTIVITAMINS TAB 1 TABLET PO SCH ×2 (08:31→20:51)
[2022-06-18] MEDS: BENZTROPINE MESYLATE 1 MG TABLET PO SCH ×2 (08:31→20:51)
[2022-06-18] MEDS: BALSAM PERU/CASTOR OIL 56.7 GM OINT...G. TP SCH (08:32)
--- NOTE | 2022-06-18 10:00 | NUR ---
RN ROUNDS Patient remains sleeping in bed at this time. Patient is calm, no s/s of pain, distress, discomfort, or agitation. Tube feeding per NG tube at this time. Patient tolerating well, residual is <10 mL IV site intact. Call light within reach. Safety precautions observed.
[2022-06-18] MEDS ORDERED: LACTULOSE 20 GM/30 ML UDC PO ONE (10:30)
--- NOTE | 2022-06-18 10:30 | NUR ---
TUBE FEEDING Residual is now 30 mL. Patient gurgling noted.
--- NOTE | 2022-06-18 10:40 | NUR ---
ANICETO conley. Spoke to inbound call center representative at exchange.
[2022-06-18] MEDS: HONEY WOUND DRESSING 1 EACH TP SCH ×2 (10:43→10:44)
--- NOTE | 2022-06-18 12:15 | NUR ---
RN ROUNDS/NG TUBE PULLED It was noted that NG tube was pulled out at this time. Awaiting call back from Dr. Moore. Patient remains confused at this time. Restraints remain in place. Will continue to monitor patient.
[2022-06-18 12:30] VITALS: BP_SYST 179
--- NOTE | 2022-06-18 13:42 | NUR ---
Conservation Engineer LATE ENTRY 06/17/22 HEALTH SUPPORT SPECIALIST called and left a msg for sister Susy before leaving for the day. HEALTH SUPPORT SPECIALIST came in on day off today, 06/18/22 RAYMUNDO Gomez informed HEALTH SUPPORT SPECIALIST that she spoke to sisterSusy in [place] who has yet to determine if they will give consent to a G-tube for pt. On the morning of 06/17/22, Dr. Moore asked for assistance with this patient to determine if family wants to give consent and if the did not want to , then pt. could go to a facility on hospice. HEALTH SUPPORT SPECIALIST called sister Susy to update her and share that indeed Dr. Moore did request for a second consult with Neuro, Dr. Marroquin. as well as a tele-psych. consult with Dr. Cedeno. HEALTH SUPPORT SPECIALIST shared the findings with sister who stated she has not spoken to pt for over two years, but know pt would not want tubes. Sister is aware that pt. is pulling on her NG tube lines resulting in restraints. HEALTH SUPPORT SPECIALIST shared with sister the request, give consent for a G-tube for feedings as the NG tube is temporary or pt. can go to a facility and received hospice services. Gautam feels pt. does not have dementia and is unsure of pts. medical condition, asked to speak to Dr. Marroquin. HEALTH SUPPORT SPECIALIST gave sister HEALTH SUPPORT SPECIALIST's contact for tomorrow and will ask for Dr. Marroquin to contact sister in hopes this will help with the decision making. RAYMUNDO Gomez also informed HEALTH SUPPORT SPECIALIST that [facility] accepted pt. as the received an auth from [facility], but they do not take feeding tubes, pt can go on hospice. HEALTH SUPPORT SPECIALIST spoke to Leah Foster who will page Dr. Marroquin with this request. HEALTH SUPPORT SPECIALIST will remain available as needed.
[2022-06-18] MEDS: cloNIDine HCL 0.1 MG TABLET PO PRN ×2 (16:28→20:50)
[2022-06-18 16:30] VITALS: BP_SYST 192
--- NOTE | 2022-06-18 17:18 | NUR ---
ST EVALUATION COMPLETED. ST TX NOT INDICATED AT THIS TIME. RECOMMEND PUREE/NECTAR THICK LIQUIDS WITH 1:1 FEEDER AND FULL ASPIRATION PRECAUTIONS. PT MAY BENEFIT FROM ALTERNATIVE MEANS OF NUTRITION DUE TO POOR ORAL INTAKE.
--- NOTE | 2022-06-18 18:06 | NUR ---
MD ROUNDS Dr. Lopez chacko. Orders given.
--- NOTE | 2022-06-18 18:07 | NUR ---
MD COMMUNICATION Spoke to Dr. Marroquin regarding him updating the family. He says he will speak to the family tomorrow.
--- NOTE | 2022-06-18 18:51 | NUR ---
CLOSING NOTE Patient sitting up in bed at this time. Patient remains confused and is mildly restless at this time. IV intact. Call light within reach. Safety precautions observed. Will endorse to oncoming nurse.
[2022-06-18 20:00] VITALS: BP_SYST 164
[2022-06-18] MEDS ORDERED: DIPHENHYDRAMINE INJ 50 MG/ML VIAL IVP PRN (20:30)
[2022-06-18] MEDS: QUEtiapine FUMARATE 25 MG TABLET PO SCH (20:51)
[2022-06-18 22:00] VITALS: BP_SYST 142
[2022-06-18] MEDS: LR 1,000 ML IV SCH (22:42)
[2022-06-19 04:00] VITALS: BP_SYST 140
[2022-06-19 08:00] VITALS: BP_SYST 125
[2022-06-19] MEDS: LACTULOSE 20 GM/30 ML UDC PO SCH (08:58)
[2022-06-19] MEDS: PANTOPRAZOLE SODIUM 40 MG/VIAL (PROTONIX) IV SCH (08:58)
[2022-06-19] MEDS: BENZTROPINE MESYLATE 1 MG TABLET PO SCH ×2 (08:59→21:15)
[2022-06-19] MEDS: MULTIVITAMINS TAB 1 TABLET PO SCH ×2 (08:59→21:15)
[2022-06-19] MEDS: HONEY WOUND DRESSING 1 EACH TP SCH (08:59)
[2022-06-19] MEDS: BALSAM PERU/CASTOR OIL 56.7 GM OINT...G. TP SCH (09:00)
[2022-06-19] MEDS: QUEtiapine FUMARATE 25 MG TABLET PO SCH (09:07)
[2022-06-19 09:36] LABS: BASOPHILS % (AUTO) 0.3 % (0.0-2.0); EOSINOPHILS # (AUTO) 0.1 K/uL (0.0-0.4); EOSINOPHILS % (AUTO) 1.2 % (0.0-4.0); HEMATOCRIT 27.3 % (36-48); HEMOGLOBIN 8.9 g/dL (12.0-16.0); LYMPHOCYTES % (AUTO) 17.7 % (20.5-51.5); MEAN CORPUSCULAR HEMOGLOBIN 27 pg (27-31); MEAN CORPUSCULAR HGB CONC 33 % (32-36); MEAN CORPUSCULAR VOLUME 84 fL (79.0-98.0); MONOCYTES # (AUTO) 0.5 K/uL (0.0-1.0); MONOCYTES % (AUTO) 8.5 % (1.7-9.3); NEUTROPHILS # (AUTO) 3.9 K/uL (1.8-7.7); NEUTROPHILS % (AUTO) 72.3 % (40.0-70.0); PLATELET COUNT (AUTO) 134 K/uL (130-430); RED BLOOD CELL COUNT(AUTO) 3.27 MIL/uL (4.2-6.2); RED CELL DISTRIBUTION WIDTH 15.2 % (9.0-15.0); WHITE BLOOD COUNT (AUTO) 5.4 K/uL (4.8-10.8)
[2022-06-19 09:49] LABS: ALANINE AMINOTRANSFERASE 12 U/L (12-78); ALBUMIN 1.3 g/dL (3.4-4.8); ANION GAP 8 (5-15); ASPARTATE AMINOTRANSFERASE 22 U/L (10-37); CALCIUM 7.4 mg/dL (8.4-11.0); CHLORIDE 102 mmol/L (98-107); CREATININE 0.61 mg/dL (0.55-1.30); GLUCOSE 85 mg/dL (70-99); TOTAL BILIRUBIN 0.4 mg/dL (0.0-1.0); UREA NITROGEN, BLOOD 16 mg/dL (8-21)
--- NOTE | 2022-06-19 11:07 | NUR ---
Received phone call from Pt's sister Susy in [place]. She request to Director emial to provide information regarding patient. Ms. Jain informed tag writer that daughter in law will be arriving from out of state 06/22 around 2 pm to see patient and coordinate plan of care with treating physician. She sates that family wants to meet with provider to discuss G-Tube feeding in particular which family is strongly not in favor of. Family is requesting more information from medical provider regarding patients condition. Daughter in law in [facility] Ms. Jain email is: [email or web address]
[2022-06-19 11:15] VITALS: BP_SYST 125; BP_SYST 135
[2022-06-19] MEDS ORDERED: PANTOPRAZOLE SODIUM 40 MG/VIAL (PROTONIX) IVP ONE (12:00)
--- NOTE | 2022-06-19 13:08 | NUR ---
Nutrition F/U: Admitting Diagnosis: ALOC and hyperkalemia Reviewed Pertinent Medical/Surgical Hx Medical Record; RN; physician; patient Medical History Comment: per EMR: 69-year-old elderly woman who was brought in by EMS from her home for altered mental status. Per patient's neighbor, she lives alone. Her 12 years ago and she does not have any children. Neighbor states that the patient once in a while will notice that the food that is routinely delivered to her was sitting outside longer than usual, so a welfare check was called for. On arrival, patient was found consciously laying on the floor with her right arm underneath her and the house was a mess. Patient's neighbor is unaware of her medical history. Patient is only oriented to her name. Subjective Information: Late follow-up d/t heavy caseload. RD rounded to patient room and tried to s/w patient at bedside but she was extremely sleepy. Unable to obtain nutrition hx from pt this visit. RD s/w patient RN: RN endorses patient is not eating well and refusing most meals. RD recommended Ensure HP BID to aid in meeting needs. If patient PO does not improve, consider nutrition support. Per EMR, abd soft, non-distended w/ active bowel sounds; LBM 06/17 x 2; pt refuses most of her meals. Pt is not meeting nutritional needs and is at risk for malnutrition Current Diet Order/Nutrition Support: Puree, nectar thick liquids x 1 day Patient/Significant Other Unable To Verbalize Education Provided Not Indicated NEW Pertinent Medications: Lactulose, MVI NEW Pertinent Labs: Drawn 06/19: H/H 8.9L/27.3 L, Na 133 L, Ca 7.4 L, Alb 1.3 L Height (Feet) 5 feet Height (Inches) 9.00 inches Weight stable since 06/08 159 pounds/ 72.121 kg Body Mass Index 23.48 kg/m2 %IBW 110 [place]/Adjusted Body Weight 145#/ 66 kg Recent Weight Change unable to assess Weight Status Appropriate Gastrointestinal Symptoms None Last BM Jun 17, 2022 x 2 Food Allergies Yes Usual Diet At Home Unknown Skin Integrity Comment: Ted Score 13: L/R wrists ecchymosis, L buttock wound; no edema documented on 06/18 Current % PO Poor: 39% x 5 documented meals (+ refused x 2 meals) Estimated Energy Expenditure (kcals/day) 1650- 1980 kcal (25-30 kcal/kg IBW d/t GERIAT) Estimated Protein Required (g/day) 92-119 g (1.4-1.8 g/kg IBW d/t wounds) Estimated Fluid Required (l/day) 1.6-1.9L (1mL/kcal maintenance) Problem/Etiology/Signs/Symptoms Increased energy and protein utilization r/t metabolic demands a/e/b estimated nutritional needs for wound healing (On-going) Expected Outcomes/Goals PO intake provides >85% estimated nutrient needs, nutrition-related labs trending WNL, improvements in skin integrity, BM q1-3 days Dietitian Recommendations * Continue Puree, NTL diet * Consider alternate nutrition: Jevity 1.5 @ 45mL/hr (goal) Provides: 1620 kcal, 69 g PRO, 821mL free water Meets: 98% of lower kcal and 75% of upper PRO est needs * Ordered: Ensure HP BID (provides 700 kcal and 40 g PRO) + Dane BID * Continue to provide 1:1 feeding assistance with all meals Follow Up High Risk: F/U in 2-3days GS, MPH, RD
[2022-06-19] MEDS ORDERED: MEGESTROL ACETATE 400 MG/10 ML UDC PO ONE (13:15)
--- NOTE | 2022-06-19 13:15 | NUR ---
Dietitian Recommendations * Continue Puree, NTL diet * Consider alternate nutrition: Jevity 1.5 @ 45mL/hr (goal) Provides: 1620 kcal, 69 g PRO, 821mL free water Meets: 98% of lower kcal and 75% of upper PRO est needs * Ordered: Ensure HP BID (provides 700 kcal and 40 g PRO) + Dane BID * Continue to provide 1:1 feeding assistance with all meals GS, MPH, RD Please refer to Nutrition F/U for further details. Thanks!
[2022-06-19] MEDS ORDERED: DIPHENHYDRAMINE INJ 50 MG/ML VIAL IVP PRN (13:30)
--- NOTE | 2022-06-19 13:45 | NUR ---
RECEIVED REPORT ON PATIENT FROM YADI DOS SANTOS, ASSUMED CARE, AND STARTED ASSESSMENT. WILL CONTINUE TO MONITOR AND ASSESS FOR SAFETY AND COMFORT.
[2022-06-19 16:35] VITALS: BP_SYST 169
--- NOTE | 2022-06-19 19:22 | NUR ---
REPORT GIVEN TO CARMEN AND CARE WAS TURNED OVER TO HER.
[2022-06-19 20:10] VITALS: BP_SYST 158
--- NOTE | 2022-06-19 20:10 | NUR ---
Opening notes Pt awake, confused, no s/s distress noted. VSS. R. arm dressing C/D/I. IVF infusing L. hand 20 clear and patent. Del Cid catheter draining to gravity. Bed low, locked, siderails up x4, alarm on. To monitor.
[2022-06-19] MEDS: LR 1,000 ML IV SCH (20:43)
[2022-06-20] VITALS (7 sets, daily range): BP systolic 116–206
--- NOTE | 2022-06-20 06:05 | NUR ---
Closing notes Pt asleep, confused, no s/s distress noted. Able to follow simple commands. R. arm sling dressing C/D/I. IVF infusing L. hand 20 clear and patent. Del Cid catheter draining to gravity. Sacral dressing dry and intact. Bed low, locked, siderails up x4, alarm on. To endorse to AM nurse.
--- NOTE | 2022-06-20 08:00 | NUR ---
PATIENT ALERT AND RESPONSIVE. A&OX1. ADMITTED DX ALOC, HYPERKALEMIA. NO S/S HYPERKALEMIA ON SHIFT. NO C/O CP. PATIENT VERBALLY RESPONSIVE. STABLE AND AFEBRILE. 20g LEFT HAND. IVF ORDERED LR @ 40ML/HR. PATIENT ABLE TO TOLERATED DIET ORDERED PUREE WITH NTL. PO FLUIDS ENCOURAGED TOLERATED. NO SOB / DYPNEA. BREATHING EVEN AND NON LABORED. NO S/S ASPIRATION NOTED. HOB ELEVATED. F/C IN PLACE. F/C CARE PROVIDED. PATIENT KEPT CLEAN AND DRY. TURNED AND REPOSITIONED Q2H. DENIES PAIN 0/10 LOU STILL. R ARM IN SPLINT. LEFT ARM RESTRAINT CMS CHECKS q2H WNL. DRESSING CHANGED TO BUTTOCK ORDERED. PT TURNED AND REPOSITIONED Q2H. ALL NEEDS MET. CONTINUE PLAN OF CARE. Addendum: 06/20/22 at 1828 by [place] YADI Vu RN O2 @ 2LPM VIA NC. O2 SAT 98%. Addendum: 06/20/22 at 1833 by [facility] YADI Vu RN SAFETY PRECAUTIONS OBSERVED. RESTRAINTS RELEASED Q2H. OTHER MEASURES INEFFECTIVE PATIENT TRIES TO PULL TUBING / LINE. CALL LIGHT IN REACH. BED IN LOWEST POSITION.
[2022-06-20] MEDS: LACTULOSE 20 GM/30 ML UDC PO SCH (09:39)
[2022-06-20] MEDS: BENZTROPINE MESYLATE 1 MG TABLET PO SCH ×2 (09:40→21:31)
[2022-06-20] MEDS: MEGESTROL ACETATE 400 MG/10 ML UDC PO SCH (09:40)
[2022-06-20] MEDS: PANTOPRAZOLE SODIUM 40 MG/VIAL (PROTONIX) IVP SCH ×2 (09:41→21:31)
[2022-06-20] MEDS: MULTIVITAMINS TAB 1 TABLET PO SCH ×2 (09:41→21:31)
[2022-06-20] MEDS: BALSAM PERU/CASTOR OIL 56.7 GM OINT...G. TP SCH (09:42)
[2022-06-20] MEDS: HONEY WOUND DRESSING 1 EACH TP SCH (09:42)
[2022-06-20] MEDS ORDERED: DEXTROSE 50% JECT 50 ML DISP.SYRIN IVP PRN (10:30)
[2022-06-20] MEDS ORDERED: INSULIN REGULAR, HUMAN 100 UNITS/ML, 3 ML VIAL (humuLIN R) SUBCUT PRN (10:30)
[2022-06-20] MEDS ORDERED: *TPN PER PHARMACY XX PRN (10:30)
[2022-06-20 13:53] LABS: ANION GAP 9 (5-15); CALCIUM 7.6 mg/dL (8.4-11.0); CHLORIDE 103 mmol/L (98-107); CREATININE 0.67 mg/dL (0.55-1.30); GLUCOSE 84 mg/dL (70-99); UREA NITROGEN, BLOOD 17 mg/dL (8-21)
[2022-06-20 13:57] LABS: ALANINE AMINOTRANSFERASE 9 U/L (12-78); ALBUMIN 1.4 g/dL (3.4-4.8); ASPARTATE AMINOTRANSFERASE 20 U/L (10-37); TOTAL BILIRUBIN 0.5 mg/dL (0.0-1.0); TRIGLYCERIDES 57 mg/dL (30-150)
--- NOTE | 2022-06-20 15:53 | NUR ---
Nutrition Note/Nutrition Support Recommendations TPN per pharmacy Notification received 06/20/22 1022. Pt was seen for Nutrition F/U yesterday, 06/19. RD reviewed most current pt data via EMR to formula new PPN recs. Pt appears to only have a peripheral IV at this time. Estimated Energy Expenditure (kcals/day) 7625-2971 (25-30 kcal/kg IBW d/t GERIAT) Estimated Protein Required (g/day) 92-119 (1.4-1.8 g/kg IBW d/t wounds) Estimated Fluid Required (l/day) 1.6-1.9 (1mL/kcal maintenance) Dietitian Recommendations: * PPN D20%, AA10% at 85 ml/hr (goal rate), IL20% at 5 ml/hr daily via peripheral line Provides: 1342 kcal/day, 102 gm protein/day, 2160 ml total volume/day, and GIR: 2 mg CHO/kg/min Meets: 81% of lower end of estimated caloric needs and 86% of upper end of estimated protein needs RD to continue to follow as per nutrition care standards.
[2022-06-20] MEDS: LR 1,000 ML IV SCH (17:04)
--- NOTE | 2022-06-20 18:08 | NUR ---
MADE AWARE OF LAB RESULTS NNO AT THIS TIME.
[2022-06-20] MEDS: cloNIDine HCL 0.1 MG TABLET PO PRN (23:57)
[2022-06-21 00:45] VITALS: BP_SYST 169
--- NOTE | 2022-06-21 06:40 | NUR ---
Closing notes/IV restart Pt asleep, easily awakens, no s/s distress noted. R. arm sling dressing C/D/I. IV restarted on L. forearm 22G good blood return. Del Cid catheter draining to gravity with yellow, cloudy urine. Sacral dressing dry and intact. Bed low, locked, siderails up x4, alarm on. To endorse to AM nurse.
[2022-06-21 06:56] LABS: BASOPHILS % (AUTO) 0.2 % (0.0-2.0); EOSINOPHILS # (AUTO) 0.1 K/uL (0.0-0.4); EOSINOPHILS % (AUTO) 0.9 % (0.0-4.0); HEMATOCRIT 35.1 % (36-48); HEMOGLOBIN 11.8 g/dL (12.0-16.0); LYMPHOCYTES % (AUTO) 15.7 % (20.5-51.5); MEAN CORPUSCULAR HEMOGLOBIN 27 pg (27-31); MEAN CORPUSCULAR HGB CONC 34 % (32-36); MEAN CORPUSCULAR VOLUME 82 fL (79.0-98.0); MONOCYTES # (AUTO) 0.6 K/uL (0.0-1.0); MONOCYTES % (AUTO) 10.1 % (1.7-9.3); NEUTROPHILS # (AUTO) 4.7 K/uL (1.8-7.7); NEUTROPHILS % (AUTO) 73.1 % (40.0-70.0); PLATELET COUNT (AUTO) 232 K/uL (130-430); RED CELL DISTRIBUTION WIDTH 15.4 % (9.0-15.0); WHITE BLOOD COUNT (AUTO) 6.4 K/uL (4.8-10.8)
[2022-06-21 07:31] LABS: ALANINE AMINOTRANSFERASE 15 U/L (12-78); ALBUMIN 1.8 g/dL (3.4-4.8); ANION GAP 9 (5-15); ASPARTATE AMINOTRANSFERASE 28 U/L (10-37); CALCIUM 7.9 mg/dL (8.4-11.0); CHLORIDE 103 mmol/L (98-107); GLUCOSE 100 mg/dL (70-99); PHOSPHORUS 2.5 mg/dL (2.7-4.5); TOTAL BILIRUBIN 0.5 mg/dL (0.0-1.0); UREA NITROGEN, BLOOD 20 mg/dL (8-21)
[2022-06-21 08:00] VITALS: BP_SYST 150
[2022-06-21] MEDS: LACTULOSE 20 GM/30 ML UDC PO SCH (09:19)
[2022-06-21] MEDS: MEGESTROL ACETATE 400 MG/10 ML UDC PO SCH (09:19)
[2022-06-21] MEDS: BENZTROPINE MESYLATE 1 MG TABLET PO SCH ×2 (09:19→21:55)
[2022-06-21] MEDS: MULTIVITAMINS TAB 1 TABLET PO SCH ×2 (09:19→21:55)
[2022-06-21] MEDS: PANTOPRAZOLE SODIUM 40 MG/VIAL (PROTONIX) IVP SCH ×2 (09:20→21:55)
[2022-06-21] MEDS: BALSAM PERU/CASTOR OIL 56.7 GM OINT...G. TP SCH (09:21)
[2022-06-21] MEDS: HONEY WOUND DRESSING 1 EACH TP SCH (09:21)
[2022-06-21 12:50] VITALS: BP_SYST 125
--- NOTE | 2022-06-21 13:24 | NUR ---
Miss Trinidad has only peripheral IV aceess. Dr Moore consulted. He states to change to PPN. Pharmacy notified.
[2022-06-21] MEDS ORDERED: POTASSIUM CHLORIDE 40 MEQ, LIDOCAINE JECT 2% PF 100 MG 50 MG in NS 250 ML IV ONE (13:30)
--- NOTE | 2022-06-21 15:18 | NUR ---
Nutrition F/U RD reviewed pts current EMR including diet hx, physician notes, nursing notes, pertinent labs/meds/procedures, care trends and care activity. Short note d/t high workload Subjective Information RD rounded to pt room twice and pt was sleeping both times. RD did not witness any TPN running, even though there was a order for TPN yesterday. RD tried multiple times to find pt RN but she was not around and did not have a phone. Per EMR review: pt abd soft, non-distended w/ active bowel sounds. Pt appears very lethargic and is not meeting nutritional needs. She likely needs TPN or EN. Current Diet Order/Nutrition Support Puree, NTL, Ensure HP BID x 2 days % PO intake None documented since 06/18 Last BM 06/17 x 2 Estimated Energy Expenditure (kcals/day) 1755-5218 (25-30 kcal/kg IBW d/t GERIAT) Estimated Protein Required (g/day) 92-119 (1.4-1.8 g/kg IBW d/t wounds) Estimated Fluid Required (l/day) 1.6-1.9 (1mL/kcal maintenance) Dietitian Recommendations * Continue puree, NTL diet per VACUUM TESTER CANS * In addition to PO, pt likely needs PPN @ D20%, AA10% at 85 ml/hr (goal rate), IL20% at 5 ml/hr daily via peripheral line Provides: 1342 kcal/day, 102 gm protein/day, 2160 ml total volume/day, and GIR: 2 mg CHO/kg/min Meets: 81% of lower end of estimated caloric needs and 86% of upper end of estimated protein needs Follow up High risk: see pt in 2-3 days GS, MPH, RD
--- NOTE | 2022-06-21 15:20 | NUR ---
Dietitian Recommendations * Continue puree, NTL diet per 3D TECHNOLOGIST * In addition to PO, pt likely needs PPN @ D20%, AA10% at 85 ml/hr (goal rate), IL20% at 5 ml/hr daily via peripheral line Provides: 1342 kcal/day, 102 gm protein/day, 2160 ml total volume/day, and GIR: 2 mg CHO/kg/min Meets: 81% of lower end of estimated caloric needs and 86% of upper end of estimated protein needs GS, MPH, RD Please read Nutrition F/U for more information. Thanks!
[2022-06-21 16:25] VITALS: BP_SYST 140
--- NOTE | 2022-06-21 17:13 | NUR ---
PT NOTES PATIENT REFUSED PHYSICAL THERAPY TODAY. STATES SHE DOESN'T WANT TO DO ANYTHING. FF UP TOMORROW 06/22/22
--- NOTE | 2022-06-21 18:42 | NUR ---
Miss Zayas has been assessed as indicated. She moans with every touch. she does not follow all commands she does eat with assistance. PO meds were crushed and these were tolerated well. Potassium level was low this shift and was replaced. There is a order for PPN. to start tonite. IV access is patent and flushes well. Del Cid has adequate amounts of urine output and IVF have been well tolerated. She was unable to cooperate with PT. She is resting quietly at this time
--- NOTE | 2022-06-21 19:24 | NUR ---
Handoff has been given to Shannan
[2022-06-21 20:25] VITALS: BP_SYST 158
[2022-06-21] MEDS ORDERED: TPN PERIPHERAL IV SCH ×8 (21:00)
[2022-06-21] MEDS ORDERED: [UNRECOGNIZED DRUG - OTHER] IV SCH ×8 (21:00)
[2022-06-21] MEDS ORDERED: MVI IV SCH ×8 (21:00)
[2022-06-21] MEDS ORDERED: NA PHOS IV SCH ×8 (21:00)
[2022-06-21] MEDS ORDERED: TRACE ELEMENTS IV SCH ×8 (21:00)
[2022-06-21] MEDS: LR 1,000 ML IV SCH (21:56)
[2022-06-22] VITALS: BP_SYST 145
[2022-06-22 07:10] LABS: BASOPHILS % (AUTO) 0.3 % (0.0-2.0); EOSINOPHILS # (AUTO) 0.1 K/uL (0.0-0.4); EOSINOPHILS % (AUTO) 1.6 % (0.0-4.0); HEMATOCRIT 32.2 % (36-48); LYMPHOCYTES # (AUTO) 1.4 K/uL (1.0-5.5); MEAN CORPUSCULAR HEMOGLOBIN 28 pg (27-31); MEAN CORPUSCULAR HGB CONC 34 % (32-36); MEAN CORPUSCULAR VOLUME 81 fL (79.0-98.0); MONOCYTES # (AUTO) 0.7 K/uL (0.0-1.0); MONOCYTES % (AUTO) 11.1 % (1.7-9.3); NEUTROPHILS # (AUTO) 3.8 K/uL (1.8-7.7); PLATELET COUNT (AUTO) 269 K/uL (130-430); RED BLOOD CELL COUNT(AUTO) 3.96 MIL/uL (4.2-6.2); RED CELL DISTRIBUTION WIDTH 15.3 % (9.0-15.0)
[2022-06-22 07:32] LABS: ALANINE AMINOTRANSFERASE 11 U/L (12-78); ALBUMIN 1.5 g/dL (3.4-4.8); ANION GAP 6 (5-15); ASPARTATE AMINOTRANSFERASE 30 U/L (10-37); CALCIUM 7.7 mg/dL (8.4-11.0); CHLORIDE 105 mmol/L (98-107); CREATININE 0.95 mg/dL (0.55-1.30); GLUCOSE 121 mg/dL (70-99); PHOSPHORUS 2.2 mg/dL (2.7-4.5); TOTAL BILIRUBIN 0.4 mg/dL (0.0-1.0); UREA NITROGEN, BLOOD 18 mg/dL (8-21)
--- NOTE | 2022-06-22 07:33 | NUR ---
OPENING NOTES: RECEIVED BEDSIDE SBAR BY PM SHIFT NURSE, PATIENT RESTING WELL IN BED WITH EYES CLOSED, NO S/S OF DISTRESS AT THIS TIME BED AT LOCKED AND LOW POSITION, CALL LIGHT IN REACH ALL SAFETY CHECKS DONE FOR AM. WILL CONT TO MONITOR PATIENT PER ORDERS.
--- NOTE | 2022-06-22 08:00 | NUR ---
NO RESTRAINS ON PATIENT IS DOING GOOD
[2022-06-22 08:01] VITALS: BP_SYST 152
[2022-06-22] MEDS: LACTULOSE 20 GM/30 ML UDC PO SCH (09:32)
[2022-06-22] MEDS: MEGESTROL ACETATE 400 MG/10 ML UDC PO SCH (09:32)
[2022-06-22] MEDS: BENZTROPINE MESYLATE 1 MG TABLET PO SCH ×2 (09:33→21:41)
[2022-06-22] MEDS: MULTIVITAMINS TAB 1 TABLET PO SCH ×2 (09:34→21:41)
[2022-06-22] MEDS: HONEY WOUND DRESSING 1 EACH TP SCH (09:34)
[2022-06-22] MEDS: BALSAM PERU/CASTOR OIL 56.7 GM OINT...G. TP SCH (09:35)
--- NOTE | 2022-06-22 10:00 | NUR ---
NO RESTRAINTS ON
[2022-06-22] MEDS: PANTOPRAZOLE SODIUM 40 MG/VIAL (PROTONIX) IVP SCH (10:56)
--- NOTE | 2022-06-22 11:54 | NUR ---
Anesthesiology Medical Doctor WIREWORKER met with pt. on to ask if she wanted to speak to her sister Susy in [place]. Pt hastily said, "NO!!" WIREWORKER did not want to upset pt. and stated that was ok , no problem. Today WIREWORKER spoke to Susy who stated daugter in law, Jazzmine Stone, was coming in from [place] to survey the situation and exlpore feeding tube as well as options. WIREWORKER confirmed that these notes were in the case and will notify Rn. to speak to Jazzmine. WIREWORKER called Rn. Lang, [phone] to notify him of Neelam arrival and request to speak to Dr. Moore. Rickey will noitify Sanford MILLER. Addendum: 06/22/22 at 1506 by Flores Hernández WIREWORKER Anesthesiology Medical Doctor WIREWORKER met with sisters daughter in law from [place], Jazzmine who stated she wanted to know what are the options for pt. Jazzmine stated pt. does not have a NC feeding, no more restraints and is eating a puree diet. WIREWORKER stated she will get an opp. to speak to Dr. Moore. WIREWORKER asked PAUL Gibson if she can ensure Dr. Moore speaks to Jazzmine. Jazzmine stated to her knowledge there is not a DPOA. WIREWORKER looked through pts. file and did not see one. WIREWORKER stated that it does not mean one does not exist. Jazzmine stated there is not DPOA. WIREWORKER will give pt. and Jazzmine one to fill out CM Patricia stated pt in coherent. WIREWORKER will remain available as needed.
[2022-06-22 11:55] VITALS: BP_SYST 154
--- NOTE | 2022-06-22 14:00 | NUR ---
FAMILY FROM [place] AT BEDSIDE
--- NOTE | 2022-06-22 14:54 | NUR ---
DR VAZQUEZ AT BEDSIDE WITH FAMILY
--- NOTE | 2022-06-22 15:09 | NUR ---
TOMMY BUI [phone] FAMILY
[2022-06-22] MEDS ORDERED: CHOLECALCIFEROL (VITAMIN D3) 2,000 UNIT TABLET PO ONE (15:45)
[2022-06-22 16:41] VITALS: BP_SYST 154
--- NOTE | 2022-06-22 18:34 | NUR ---
CLOSING NOTES: PATIENT REMAIN STABLE NO S/S OF DISTRESS,NON-LABOR BREATHING, IV INTACT, ALL NEEDS MET, ALL SAFETY CHECKS DONE THOUGHT OUT THE DAY. BED AT LOCKED AND LOW POSITION CALL LIGHT IN REACH WILL GIVE BEDSIDE SBAR TO PM SHIFT NURSE.
[2022-06-22 20:00] VITALS: BP_SYST 160
[2022-06-22] MEDS: LR 1,000 ML IV SCH (20:43)
[2022-06-22] MEDS ORDERED: NA PHOS IV SCH ×16 (21:00)
[2022-06-22] MEDS ORDERED: TPN PERIPHERAL IV SCH ×16 (21:00)
[2022-06-22] MEDS ORDERED: [UNRECOGNIZED DRUG - OTHER] IV SCH ×16 (21:00)
[2022-06-22] MEDS ORDERED: POTASSIUM ACETATE IV SCH ×16 (21:00)
[2022-06-22] MEDS: FAT EMULSIONS 250 ML IV SCH (21:44)
[2022-06-23 00:31] VITALS: BP_SYST 159
--- NOTE | 2022-06-23 06:17 | NUR ---
CLOSING NOTES: Patient is in bed resting no s/s of distress is noted at this time. Chest rise is even and unlabored on 2L via NC. Patient has been assessed this shift as indicated and noted to be AA&Ox1, PIV was noted on L forearm and infiltrated during this shift, so new PIV was inserted on L forearm at a different site and is now patent and infusing. TPN was started at 50ml/hr and lipids at 5ml per hour as ordered. Del Cid Cath is noted to be hanging by gravity and draining dark Yellow urine. Patient has been provided patient care this shift and has been turned as indicated. All current shift needs have been met this shift, patient is stable and safety measures are in place as per protocol. Will differ care to AM shift for continuity of care.
--- NOTE | 2022-06-23 07:45 | NUR ---
OPENING NOTES: RECEIVED BEDSIDE SBAR FROM PM SHIFT NURSE, PATIENT IS STABLE, NO S/S OF DISTRESS, NON LABOR BREATHING, IV INTACT BED AT LOW AND LOCKED POSITION, CALL LIGHT IN REACH, ALL SAFETY CHECKS DONE AT THIS TIME. WILL MONITOR PATIENT PER ORDERS.
[2022-06-23] MEDS: BENZTROPINE MESYLATE 1 MG TABLET PO SCH ×2 (08:28→21:15)
[2022-06-23] MEDS: LACTULOSE 20 GM/30 ML UDC PO SCH (08:29)
[2022-06-23] MEDS: MULTIVITAMINS TAB 1 TABLET PO SCH ×2 (08:29→21:15)
[2022-06-23] MEDS: MEGESTROL ACETATE 400 MG/10 ML UDC PO SCH (08:29)
[2022-06-23] MEDS: CHOLECALCIFEROL (VITAMIN D3) 2,000 UNIT TABLET PO SCH (08:30)
[2022-06-23] MEDS: BALSAM PERU/CASTOR OIL 56.7 GM OINT...G. TP SCH (08:30)
[2022-06-23] MEDS: HONEY WOUND DRESSING 1 EACH TP SCH (08:30)
[2022-06-23] MEDS: PANTOPRAZOLE SODIUM 40 MG/VIAL (PROTONIX) IVP SCH (08:35)
--- NOTE | 2022-06-23 08:51 | NUR ---
PAGED DR VAZQUEZ FOR A MIDLINE ORDER PATIENT IS ON TPN
[2022-06-23 08:55] LABS: ALANINE AMINOTRANSFERASE 20 U/L (12-78); ALBUMIN 1.8 g/dL (3.4-4.8); ANION GAP 11 (5-15); ASPARTATE AMINOTRANSFERASE 27 U/L (10-37); CHLORIDE 103 mmol/L (98-107); CREATININE 0.92 mg/dL (0.55-1.30); GLUCOSE 115 mg/dL (70-99); PHOSPHORUS 2.3 mg/dL (2.7-4.5); TOTAL BILIRUBIN 0.4 mg/dL (0.0-1.0); UREA NITROGEN, BLOOD 22 mg/dL (8-21)
--- NOTE | 2022-06-23 09:00 | NUR ---
Patient refused Physical Therapy treatment. She understands the pros and cons.
[2022-06-23 11:15] VITALS: BP_SYST 164
[2022-06-23] MEDS: cloNIDine HCL 0.1 MG TABLET PO PRN ×3 (11:19→21:17)
--- NOTE | 2022-06-23 11:22 | NUR ---
PATIENTS BP 164/98 PATIENT REFUSES AND MEDS EXPLAINED THE RISKS AND BENEFITS OF CONDITION STILL REFUSED WILL INFORM DOCTOR
--- NOTE | 2022-06-23 12:58 | NUR ---
Enterostomal Nurse SVP PROGRAMMATIC TV was asked as per pts. sisters [id number], Jazzmine Stone, , to help pt. fill out a DPOA. Today when SVP PROGRAMMATIC TV rerturned to work read from notes dated 06/13 at 6:17 pt. is AAOx1. Pt will not be able to fill out or offer any answers on the DPOA in this condition. SVP PROGRAMMATIC TV called pts. sister Susy to notify her that she would be the next of kin, therefore would be making the medical decisions.
[2022-06-23 15:50] VITALS: BP_SYST 156
--- NOTE | 2022-06-23 18:43 | NUR ---
CLOSING NOTES: PATIENT REMAINS STABLE THOUGHT THE DAY NO S/S OF DISTRESS, NON LABOR BREATHING, WAITING FOR MIDLINE PLACEMENT, F/C DRAINING TO GRAVITY BED AT LOW AND LOCKED POSITION CALL LIGHT IN REACH ALL SAFETY CHECKS DONE THOUGHT THE DAY WILL GIVE PM SHIFT NURSE BEDSIDE SBAR.
--- NOTE | 2022-06-23 19:37 | NUR ---
OPENING NOTES: Patient received from AM shift nurse. Patient is in bed resting, patient is uncooperative with care and refuses to be thoroughly assessed at this time due to pain on left arm due to infiltration. No other s/s of distress is noted at this time. Chest rise is even and unlabored on 2L via NC. TPN and fluids are on Hold at this time, due to infiltrated IV and pending MIDLINE placement. Patient is stable at this time, safety measures are in place as per protocol. Will resume care and continue to monitor throughout the shift.
[2022-06-23 20:00] VITALS: BP_SYST 172
[2022-06-23] MEDS: LR 1,000 ML IV SCH (20:43)
[2022-06-23] MEDS ORDERED: NA PHOS IV SCH ×8 (21:00)
[2022-06-23] MEDS ORDERED: TPN PERIPHERAL IV SCH ×8 (21:00)
[2022-06-23] MEDS ORDERED: [UNRECOGNIZED DRUG - OTHER] IV SCH ×8 (21:00)
[2022-06-23] MEDS ORDERED: POTASSIUM ACETATE IV SCH ×8 (21:00)
[2022-06-23] MEDS: FAT EMULSIONS 250 ML IV SCH (21:00)
[2022-06-24 00:28] VITALS: BP_SYST 156
--- NOTE | 2022-06-24 06:34 | NUR ---
CLOSING NOTES: Patient is in bed resting no s/s of distress is noted at this time. PIV has been reinserted on LFA 22G with TPN running at 50ml/hr to be increased to goal when midline is inserted. LIPID has been held due to pending line placement as well as LR. All current shift needs have been met at this time, patient is stable at this time and safety measures are in place as per protocol. Will differ care to AM shift for continuity of care.
--- NOTE | 2022-06-24 07:15 | NUR ---
OPENING NOTE Received report from operations supervisor 2nd shift RN. Upon entering room, patient is sleeping calmly in bed. IV site intact, TPN ongoing. Patient does not show any distress, pain, or discomfort at this time. Call light within reach. Safety precautions observed.
[2022-06-24 07:56] LABS: ALANINE AMINOTRANSFERASE 21 U/L (12-78); ALBUMIN 1.6 g/dL (3.4-4.8); ANION GAP 10 (5-15); ASPARTATE AMINOTRANSFERASE 24 U/L (10-37); CALCIUM 7.8 mg/dL (8.4-11.0); CHLORIDE 103 mmol/L (98-107); CREATININE 0.95 mg/dL (0.55-1.30); GLUCOSE 133 mg/dL (70-99); PHOSPHORUS 3.1 mg/dL (2.7-4.5); TOTAL BILIRUBIN 0.8 mg/dL (0.0-1.0); UREA NITROGEN, BLOOD 20 mg/dL (8-21)
[2022-06-24 08:00] VITALS: BP_SYST 159
[2022-06-24] MEDS: PANTOPRAZOLE SODIUM 40 MG/VIAL (PROTONIX) IVP SCH (10:21)
[2022-06-24] MEDS: LACTULOSE 20 GM/30 ML UDC PO SCH (10:21)
[2022-06-24] MEDS: MEGESTROL ACETATE 400 MG/10 ML UDC PO SCH (10:22)
[2022-06-24] MEDS: CHOLECALCIFEROL (VITAMIN D3) 2,000 UNIT TABLET PO SCH (10:22)
[2022-06-24] MEDS: MULTIVITAMINS TAB 1 TABLET PO SCH ×2 (10:22→21:53)
[2022-06-24] MEDS: BENZTROPINE MESYLATE 1 MG TABLET PO SCH ×2 (10:22→21:53)
[2022-06-24] MEDS: BALSAM PERU/CASTOR OIL 56.7 GM OINT...G. TP SCH (10:23)
[2022-06-24] MEDS: HONEY WOUND DRESSING 1 EACH TP SCH (10:24)
--- NOTE | 2022-06-24 12:11 | NUR ---
Nutrition F/U RD reviewed pts current EMR including diet hx, physician notes, nursing notes, pertinent labs/meds/procedures, care trends and care activity. Short note d/t high workload Subjective Information RD rounded to pt room and pt was sleeping soundly. RD witnessed PPN running @ 50mL. RD did not witness any lipids running even though it is ordered. RD found RN to speak about pt condition. He attested to pt being the same, not really eating and asleep most of the time. RD alerted him to the ILE not running and he said it would start tonight. RD also alerted him to the lack of BM since 06/17. He was aware and said it was likely d/t her not eating. Per LOS meeting; pt PPN was stopped d/t infiltration of arm but has since been restarted. Per EMR review: pt abd soft, non-distended w/hypoactive bowel sounds; last documented BM 06/17 x 2. Pt appears very lethargic and is not meeting nutritional needs. Current PPN order(w/o ILE): Provides: 648 kcal, 60 g PRO, 1200mL total volume; GIR 1.2 Meets: 39% lower est kcal and 65% of lower est PRO needs Current Diet Order/Nutrition Support Puree, NTL, Ensure HP BID x 5 days, PPN D20, AA10% @ 50mL/hr % PO intake Negligible intakes since 06/18 Last BM 06/17 x 2 Estimated Energy Expenditure (kcals/day) 5244-2988 (25-30 kcal/kg IBW d/t GERIAT) Estimated Protein Required (g/day) 92-119 (1.4-1.8 g/kg IBW d/t wounds) Estimated Fluid Required (l/day) 1.6-1.9 (1mL/kcal maintenance) Problem/Etiology/Signs/Symptoms *Increased energy and protein utilization r/t metabolic demands a/e/b estimated nutritional needs for wound healing (On-going) * Suboptimal EN support R/T underfeeding AEB current TF prescription meets 39% of estimated caloric needs and 65% of lower end of estimated protein needs (NEW) Dietitian Recommendations * Continue puree, NTL diet per DYE WEIGHER HELPER * Advance PPN rate and add ILE: D20%, AA10% at 100 ml/hr (goal rate), IL20% at 5 ml/hr daily via peripheral line Provides: 1536 kcal/day, 120 gm protein/day, 2250 ml total volume/day, and GIR: 2.3 mg CHO/kg/min Meets: 93% of lower end of estimated caloric needs and 101% of upper end of estimated PRO needs *Consider bowel regimen since pt has no documented BM since 06/17 Follow up High risk: see pt in 2-3 days GS, MPH, RD
--- NOTE | 2022-06-24 12:14 | NUR ---
Dietitian Recommendations * Continue puree, NTL diet per RHIC SYSTEMS SAFETY ENGINEER * Advance PPN rate and add ILE: D20%, AA10% at 100 ml/hr (goal rate), IL20% at 5 ml/hr daily via peripheral line Provides: 1536 kcal/day, 120 gm protein/day, 2250 ml total volume/day, and GIR: 2.3 mg CHO/kg/min Meets: 93% of lower end of estimated caloric needs and 101% of upper end of estimated PRO needs *Consider bowel regimen since pt has no documented BM since 06/17 GS, MPH, RD Please refer to Nutrition F/U for further details. Thanks!
[2022-06-24 12:29] VITALS: BP_SYST 140
[2022-06-24 12:30] VITALS: BP_SYST 154
--- NOTE | 2022-06-24 14:00 | NUR ---
FAMILY COMMUNICATION Spoke to sister Susy. She states she will not give consent regarding midline placement. She also states that the family has decided to move forward with hospice placement. Will endorse this to .
[2022-06-24 16:54] VITALS: BP_SYST 154
--- NOTE | 2022-06-24 18:56 | NUR ---
COMMUNICATION Spoke to Dr. Moore regarding family's wishes for hospice for patient. Orders received.
--- NOTE | 2022-06-24 18:58 | NUR ---
CLOSING NOTE Patient sleeping in bed at this time. She does not display pain, discomfort, or distress. IV site intact, TPN ongoing. Patient checked for cleanliness. Call light within reach. Safety precautions observed.
[2022-06-24 20:00] VITALS: BP_SYST 165
[2022-06-24] MEDS: LR 1,000 ML IV SCH (20:43)
[2022-06-24] MEDS ORDERED: NA PHOS IV SCH ×9 (21:00)
[2022-06-24] MEDS: FAT EMULSIONS 250 ML IV SCH (21:00)
[2022-06-24] MEDS ORDERED: TPN PERIPHERAL IV SCH ×9 (21:00)
[2022-06-24] MEDS ORDERED: SODIUM ACETATE IV SCH ×9 (21:00)
[2022-06-24] MEDS ORDERED: [UNRECOGNIZED DRUG - OTHER] IV SCH ×9 (21:00)
[2022-06-24] MEDS: cloNIDine HCL 0.1 MG TABLET PO PRN (21:53)
[2022-06-25] VITALS: BP_SYST 152
--- NOTE | 2022-06-25 06:48 | NUR ---
CLOSING NOTES: Patient is in bed resting no s/s of distress is noted at this time. Chest rise is even and unlabored on RA. Patient remains with PPN running at 50ml/hr due to fragile vein with no lipid. MD is aware that we were awaiting placement of a MIDLINE but family refused because they want to transition patient for hospice. Patient is currently stable at this time, all current shift needs have been met and safety measures are in place as per protocol.
[2022-06-25 07:12] LABS: BASOPHILS % (AUTO) 0.4 % (0.0-2.0); EOSINOPHILS # (AUTO) 0.1 K/uL (0.0-0.4); EOSINOPHILS % (AUTO) 0.8 % (0.0-4.0); HEMATOCRIT 31.8 % (36-48); HEMOGLOBIN 10.8 g/dL (12.0-16.0); LYMPHOCYTES # (AUTO) 1.2 K/uL (1.0-5.5); LYMPHOCYTES % (AUTO) 15.4 % (20.5-51.5); MEAN CORPUSCULAR HEMOGLOBIN 28 pg (27-31); MEAN CORPUSCULAR HGB CONC 34 % (32-36); MEAN CORPUSCULAR VOLUME 82 fL (79.0-98.0); MONOCYTES # (AUTO) 1.1 K/uL (0.0-1.0); MONOCYTES % (AUTO) 15.2 % (1.7-9.3); NEUTROPHILS # (AUTO) 5.1 K/uL (1.8-7.7); NEUTROPHILS % (AUTO) 68.2 % (40.0-70.0); PLATELET COUNT (AUTO) 268 K/uL (130-430); WHITE BLOOD COUNT (AUTO) 7.5 K/uL (4.8-10.8)
[2022-06-25 07:33] LABS: ALANINE AMINOTRANSFERASE 22 U/L (12-78); ALBUMIN 1.4 g/dL (3.4-4.8); ANION GAP 7 (5-15); ASPARTATE AMINOTRANSFERASE 29 U/L (10-37); CALCIUM 7.6 mg/dL (8.4-11.0); CHLORIDE 102 mmol/L (98-107); CREATININE 0.96 mg/dL (0.55-1.30); GLUCOSE 119 mg/dL (70-99); PHOSPHORUS 2.7 mg/dL (2.7-4.5); TOTAL BILIRUBIN 0.7 mg/dL (0.0-1.0); UREA NITROGEN, BLOOD 24 mg/dL (8-21)
[2022-06-25 07:35] VITALS: BP_SYST 139
[2022-06-25] MEDS: BENZTROPINE MESYLATE 1 MG TABLET PO SCH ×2 (09:00→21:48)
[2022-06-25] MEDS: MEGESTROL ACETATE 400 MG/10 ML UDC PO SCH (09:00)
[2022-06-25] MEDS: HONEY WOUND DRESSING 1 EACH TP SCH (09:00)
[2022-06-25] MEDS: BALSAM PERU/CASTOR OIL 56.7 GM OINT...G. TP SCH (09:00)
[2022-06-25] MEDS: MULTIVITAMINS TAB 1 TABLET PO SCH ×2 (09:00→21:48)
[2022-06-25] MEDS: CHOLECALCIFEROL (VITAMIN D3) 2,000 UNIT TABLET PO SCH (09:00)
[2022-06-25] MEDS: LACTULOSE 20 GM/30 ML UDC PO SCH (09:00)
[2022-06-25] MEDS: PANTOPRAZOLE SODIUM 40 MG/VIAL (PROTONIX) IVP SCH (09:22)
[2022-06-25 11:35] VITALS: BP_SYST 158
[2022-06-25] MEDS ORDERED: KCL 40 mEq in 100 mL (PREMIX) 100 ML IV ONE (13:15)
--- NOTE | 2022-06-25 14:13 | NUR ---
Hospice referral faxed to [facility] Alexx Shea [phone].
--- NOTE | 2022-06-25 15:46 | NUR ---
SPOKE WITH KATE AT [facility] FOR PATIENT CARE AT DISCHARGE. SHE REQUESTS DISCHARGE ORDERS AND A MEDICATION RECONCILIATION. FAX TO [phone].
--- NOTE | 2022-06-25 15:58 | NUR ---
ATTENDING MD DR VAZQUEZ WAS CALLED, RE: DC ORDER TO HOME UNDER [facility].
[2022-06-25 16:58] VITALS: BP_SYST 0; BP_SYST 148
[2022-06-25 19:00] VITALS: BP_SYST 126
[2022-06-25 20:00] VITALS: BP_SYST 126
[2022-06-25] MEDS ORDERED: [UNRECOGNIZED DRUG - OTHER] IV SCH ×9 (21:00)
[2022-06-25] MEDS ORDERED: NA PHOS IV SCH ×9 (21:00)
[2022-06-25] MEDS ORDERED: TPN PERIPHERAL IV SCH ×9 (21:00)
[2022-06-25] MEDS ORDERED: SODIUM ACETATE IV SCH ×9 (21:00)
[2022-06-25] MEDS: LR 1,000 ML IV SCH ×2 (21:45→21:56)
[2022-06-25] MEDS: FAT EMULSIONS 250 ML IV SCH (21:55)
[2022-06-26] VITALS: BP_SYST 126
--- NOTE | 2022-06-26 00:58 | NUR ---
PATIENT SLEEPING COMFORTABLY IN BED. EASILY AWAKENED UPON AROUSAL. VERBALLY RESPONSIVE. A&OX1. FORGETFUL. STABLE AND AFEBRILE. CONTINUED ON IVF, PPN, AND LIPIDS ORDERED. IV SITE DRSG DRY AND INTACT. F/C IN PLACE DRAINING YELLOW URINE. RIGHT ARM SPLINT IN PLACE.CMS WNL. GENERALIZED EDEMA BILAT UPPER/LOWER EXTREMITIES. CONTINUED ON PUREE DIET WITH NTL Addendum: 06/26/22 at 0115 by [facility], YADI GRULLON TURNED AND REPOSITIONED Q2H. SCD IN PLACE. 0/10 FLACC. NO FACIAL GRIMACING NOTED. ONGOING WOUND TX ORDERED. ALL NEEDS MET. SAFETY PRECAUTIONS OBSERVED. BED LOCKED IN LOWEST POSITION. CALL LIGHT IN REACH. ALL NEEDS MET.
[2022-06-26 04:00] VITALS: BP_SYST 120
--- NOTE | 2022-06-26 06:49 | NUR ---
PATIENT SLEEPING EASILY AWAKENED UPON AROUSAL. VERBALLY RESPONSIVE. STABLE AND AFEBRILE. NO CHANGES IN CONDITION OR LOC. BREATHING EVEN AND NON LABORED. CONTINUED O2@2LPM. O2SAT 97%. O/10 BLAKE STILL FACES PAIN SCALE. 2 IV SITES PATENT IVF, TPN, AND LIPIDS CONTINUED TO BE INFUSING ORDERED. NO ADVERSE REACTIONS NOTED. TOLERATIVE IVF WELL. NO S/S FLUID OVERLOAD. TURNED AND REPOSITIONED. PATIENT CLEAN AND DRY. F/C IN PLACE DRAINING YELLOW URINE. CALL LIGHT IN REACH. FALL PRECAUTIONS OBSERVED. REPORT GIVEN TO ONCOMING NURSE. ALL NEEDS MET. CONTINUE PLAN OF CARE. Addendum: 06/26/22 at 0653 by [facility] YADI Vu RN VS SCOTT
--- NOTE | 2022-06-26 07:25 | NUR ---
OPENING NOTE RECEIVED REPORT FROM INTERNATIONAL ORGANIZER NURSE. PT RESTING IN BED. IVF RUNNING WITH IV SITE KEPT INTACT AND PATENT. NO S/S OF PAIN OR DISTRESS AT THIS TIME. RUE SPLINT NOTED WITH FINGERS ARE OPEN TO AIR. CALL LIGHT WITH REACH. ENCOURAGED TO USE CALL LIGHT FOR ASSISTANCE. WILL CONT TO MONITOR.
[2022-06-26 08:00] VITALS: BP_SYST 153
[2022-06-26 08:52] LABS: ALANINE AMINOTRANSFERASE 48 U/L (12-78); ALBUMIN 1.5 g/dL (3.4-4.8); ANION GAP 9 (5-15); ASPARTATE AMINOTRANSFERASE 61 U/L (10-37); CALCIUM 8.1 mg/dL (8.4-11.0); CHLORIDE 102 mmol/L (98-107); CREATININE 0.86 mg/dL (0.55-1.30); GLUCOSE 120 mg/dL (70-99); TOTAL BILIRUBIN 0.9 mg/dL (0.0-1.0); UREA NITROGEN, BLOOD 24 mg/dL (8-21)
[2022-06-26] MEDS: MULTIVITAMINS TAB 1 TABLET PO SCH ×2 (09:00→21:00)
[2022-06-26] MEDS: CHOLECALCIFEROL (VITAMIN D3) 2,000 UNIT TABLET PO SCH (09:00)
[2022-06-26] MEDS: BENZTROPINE MESYLATE 1 MG TABLET PO SCH ×2 (09:00→21:00)
[2022-06-26] MEDS: HONEY WOUND DRESSING 1 EACH TP SCH (09:00)
[2022-06-26] MEDS: MEGESTROL ACETATE 400 MG/10 ML UDC PO SCH (09:00)
[2022-06-26] MEDS: LACTULOSE 20 GM/30 ML UDC PO SCH (09:00)
[2022-06-26] MEDS: PANTOPRAZOLE SODIUM 40 MG/VIAL (PROTONIX) IVP SCH (09:00)
[2022-06-26] MEDS: BALSAM PERU/CASTOR OIL 56.7 GM OINT...G. TP SCH (09:00)
--- NOTE | 2022-06-26 10:22 | NUR ---
[facility][phone][facility] CALLED THAT PTS' SISTER ( MISHA) WANTS TO TALK TO DOCTOR PRIOR TO MAKE FINAL DECISION. WILL PAGE DR. VAZQUEZ
--- NOTE | 2022-06-26 10:36 | NUR ---
NEW TPN BAG WAS NOT HANG LAST NIGHT.PHARMACIST CALLED TO HANG ANEW TPN BAG. THIS NURSE WAS TOLD TO SCAN THE BAG UNDER DISCONTINUE MED THEN DOCUMENT IT. HANG NEW TPN BAG.
--- NOTE | 2022-06-26 10:44 | NUR ---
DR. VAZQUEZ WILL CONTACT DR. ERNANDEZ. PROVIDED PT'S SISTER CONTACT NUMBER.
[2022-06-26 12:38] VITALS: BP_SYST 149
--- NOTE | 2022-06-26 13:20 | NUR ---
IS SPEAKING TO PT'S SISTER(MISHA) OVER THE PHONE.
--- NOTE | 2022-06-26 16:00 | NUR ---
PROVIDED WOUND CARE; SEE MST SHIFT ASSESSMENT FOR DETAIL.
[2022-06-26 16:08] VITALS: BP_SYST 153
--- NOTE | 2022-06-26 16:08 | NUR ---
CALLED [facility] ( [facility]) FOR AN UPDATE REGARDING ADMITTING TO HOSPICE. [facility] SAID HE HAS NOT CALLED MISHA( PT'S SISTER) YET, SO HE WILL CALL MISHA AND LET THIS NURSE KNOW.
--- NOTE | 2022-06-26 16:30 | NUR ---
[facility] ([facility]) CALLED THAT PT HAS 2 SISTERS, AND THEY HAVE NOT AGREED ON HOSPICE SERVICE. THEY WILL TAKE ABOUT IT TONIGHT PER [facility]. [facility] WILL CALL AND LET THE NURSE TMR.
--- NOTE | 2022-06-26 18:58 | NUR ---
CLOSING NOTE PT RESTING IN BED. IVF/TPN/LIPIDS RUNNING WITH IV SITE KEPT INTACT AND PATENT. NO S/S OF PAIN OR DISTRESS AT THIS TIME. RUE SPLINT NOTED WITH FINGERS ARE OPEN TO AIR. GOOD BLOOD CIRCULATION NOTED. CALL LIGHT WITH REACH. ENCOURAGED TO USE CALL LIGHT FOR ASSISTANCE. WILL ENDORSE CARE TO ONCOMING TRANSPORTATION PLANNING TECHNICIAN NURSE.
[2022-06-26] MEDS ORDERED: NA PHOS IV SCH ×9 (21:00)
[2022-06-26] MEDS ORDERED: [UNRECOGNIZED DRUG - OTHER] IV SCH ×9 (21:00)
[2022-06-26] MEDS ORDERED: TPN PERIPHERAL IV SCH ×9 (21:00)
[2022-06-26] MEDS ORDERED: SODIUM ACETATE IV SCH ×9 (21:00)
[2022-06-26] MEDS: FAT EMULSIONS 250 ML IV SCH (22:09)
[2022-06-27 00:09] VITALS: BP_SYST 152
--- NOTE | 2022-06-27 07:32 | NUR ---
OPENING NOTE RECEIVED REPORT FROM CORD CUTTER NURSE. PT RESTING IN BED. IVF RUNNING WITH IV SITE KEPT INTACT AND PATENT. NO S/S OF PAIN OR DISTRESS AT THIS TIME. RUE SPLINT NOTED WITH FINGERS ARE OPEN TO AIR. CALL LIGHT WITH REACH. ENCOURAGED TO USE CALL LIGHT FOR ASSISTANCE. WILL CONT TO MONITOR.
[2022-06-27 07:40] LABS: ALANINE AMINOTRANSFERASE 50 U/L (12-78); ALBUMIN 1.3 g/dL (3.4-4.8); ANION GAP 8 (5-15); ASPARTATE AMINOTRANSFERASE 47 U/L (10-37); CALCIUM 7.5 mg/dL (8.4-11.0); CHLORIDE 102 mmol/L (98-107); CREATININE 0.83 mg/dL (0.55-1.30); GLUCOSE 132 mg/dL (70-99); PHOSPHORUS 2.6 mg/dL (2.7-4.5); TOTAL BILIRUBIN 0.6 mg/dL (0.0-1.0); UREA NITROGEN, BLOOD 28 mg/dL (8-21)
[2022-06-27 08:00] VITALS: BP_SYST 159
[2022-06-27] MEDS: CHOLECALCIFEROL (VITAMIN D3) 2,000 UNIT TABLET PO SCH (09:00)
[2022-06-27] MEDS: BENZTROPINE MESYLATE 1 MG TABLET PO SCH ×2 (09:00→21:00)
[2022-06-27] MEDS: MULTIVITAMINS TAB 1 TABLET PO SCH ×2 (09:00→21:00)
[2022-06-27] MEDS: LACTULOSE 20 GM/30 ML UDC PO SCH (09:00)
[2022-06-27] MEDS: MEGESTROL ACETATE 400 MG/10 ML UDC PO SCH (09:00)
[2022-06-27] MEDS: PANTOPRAZOLE SODIUM 40 MG/VIAL (PROTONIX) IVP SCH (09:00)
[2022-06-27] MEDS: BALSAM PERU/CASTOR OIL 56.7 GM OINT...G. TP SCH (09:00)
[2022-06-27] MEDS: HONEY WOUND DRESSING 1 EACH TP SCH (09:00)
[2022-06-27 11:47] VITALS: BP_SYST 134
--- NOTE | 2022-06-27 12:30 | NUR ---
NO MORE HOSPICE; PALLIATIVE CARE [facility] H[facility] NURSE (WAYNE) CALLED THAT PT'S SISTERS AGREED ON PALLIATIVE CARE. PER WAYNE, PT'S INSURANCE WILL FINANCIALLY COVER PT'S STAY HERE. PT WILL BE DISCHARGED THIS TUESDAY. DON'T KNOW THE LOCATION AT THIS TIME.
--- NOTE | 2022-06-27 15:45 | NUR ---
Nutrition F/U RD reviewed pts current EMR including diet hx, physician notes, nursing notes, pertinent labs/meds/procedures, care trends and care activity. Subjective Information: RD visited pt's bedside this afternoon. MERCURY PURIFIER was present taking VS. RD witnessed TPN w/ lipids infusing as per pharmacy orders. Per EMR review, possible plans for palliative care versus hospice; pt continues w/ poor appetite/refusal to eat and confusion; negligible PO intake records noted; abd is soft w/ hypoactive bowel sounds; LBM x2 06/17; Ted score: 11 -- wound eval 06/15 noted reviewed, pt has multiple wounds; wt remains stable since admission. Current plan for TPN support and oral grat PO diet (pureed) is adequate/appropriate. Current Diet Order/Nutrition Support: Puree, NTL, Ensure BID x8 days & PPN D20%, AA10% at 80 ml/hr via peripheral line % PO intake Negligible intakes since 06/18 Estimated Energy Expenditure (kcals/day) 4900-5332 (25-30 kcal/kg IBW d/t GERIAT) Estimated Protein Required (g/day) 92-119 (1.4-1.8 g/kg IBW d/t wounds) Estimated Fluid Required (l/day) 1.6-1.9 (1mL/kcal maintenance) Problem/Etiology/Signs/Symptoms *Increased energy and protein utilization r/t metabolic demands a/e/b estimated nutritional needs for wound healing. *Ongoing * Suboptimal PPN support R/T underfeeding AEB current PPN prescription meets 39% of estimated caloric needs and 65% of lower end of estimated protein needs. *Improving Dietitian Recommendations * Continue Puree, NTL diet for oral grat * PPN D20%, AA10% at 100 ml/hr (goal rate), IL20% at 5 ml/hr daily via peripheral line Provides: 1536 kcal/day, 120 gm protein/day, 2250 ml total volume/day, and GIR: 2.3 mg CHO/kg/min Meets: 93% of lower end of estimated caloric needs and 101% of upper end of estimated protein needs *Consider bowel regimen since pt has no documented BM since 06/17 Follow up High rsk: see pt in 2-3 days
--- NOTE | 2022-06-27 15:50 | NUR ---
Dietitian Recommendations * Continue Puree, NTL diet for oral grat * PPN D20%, AA10% at 100 ml/hr (goal rate), IL20% at 5 ml/hr daily via peripheral line Provides: 1536 kcal/day, 120 gm protein/day, 2250 ml total volume/day, and GIR: 2.3 mg CHO/kg/min Meets: 93% of lower end of estimated caloric needs and 101% of upper end of estimated protein needs *Consider bowel regimen since pt has no documented BM since 06/17 LP, MS, RD Please refer to Nutrition F/U for details.
[2022-06-27 16:08] VITALS: BP_SYST 147
--- NOTE | 2022-06-27 16:09 | NUR ---
PROVIDED WOUND CARE; SEE MST SHIFT ASSESSMENT
--- NOTE | 2022-06-27 17:38 | NUR ---
NOTES; PT RIGHT ARM SWOLLEN. STOPPED IVF. MIDLINE PLACEMENT ORDER NOTED THAT WAS ORDERED 4 DAYS AGO. CALLED MISHA (SISTER) TO GET TELEPHONE CONSENT, BUT SHE DECLINED. EXPLAINED IMPORTANCE OF HAVING MIDLINE IN; PT HAS LOW P.O INTAKE AND NEEDS HYDRATION AND NUTRIENTS VIA IV. MISHA VERBALIZED UNDERSTANDING. MISHA ALSO WAS FRUSTRATED BECAUSE SHE DID NOT WANT ANY IVS ON THE PT. SHE KEPT ASKING " WHO AUTHORIZED THIS?" SHE WANTS TO TALK TO DR. VAZQUEZ TOMORROW. MISHA SAID SHE AND OTHER SISTER HAVE NOT DECIDED HOSPICE VS. PALLIATIVE CARE. CHARGE NURSE MADE AWARE AND WILL CALL MISHA LATER.
--- NOTE | 2022-06-27 19:10 | NUR ---
NOTES; CHARGE NURSE AND THIS NURSE SPOKE WITH MISHA ON THE PHONE REGARDING MIDLINE PLACEMENT. EXPLAINED THE INDICATION OF MIDLINE DUE TO PT'S SWOLLEN ARM. ALSO, SPOKE WITH SHARA ( MISHA' SON) ABOUT IT. ANSWERED ALL QUESTIONS. MISHA SAID SHE WILL LET US KNOW TOMORROW MORNING; EXPLAINED THAT PT WONT GET ANY HYDRATION AND NUTRIENTS TILL TOMORROW MORNING. MISHA VERBALIZED UNDERSTANDING. MISHA STILL DOES NOT WANT PT TO HAVE MIDLINE PLACEMENT AT THIS TIME.
--- NOTE | 2022-06-27 19:36 | NUR ---
CLOSING NOTE PT RESTING IN BED. ELEVATED LEFT ARM. NO S/S OF PAIN OR DISTRESS AT THIS TIME. RUE SPLINT NOTED WITH FINGERS ARE OPEN TO AIR. CALL LIGHT WITH REACH. ENCOURAGED TO USE CALL LIGHT FOR ASSISTANCE. ENDORSE POSSIBLE MIDLINE PLACEMENT AND CARE TO WASH MILL OPERATOR NURSE.
[2022-06-27] MEDS: LR 1,000 ML IV SCH (20:43)
[2022-06-27] MEDS: [UNRECOGNIZED DRUG - OTHER] IV SCH ×9 (21:00)
[2022-06-27] MEDS: SODIUM ACETATE IV SCH ×9 (21:00)
[2022-06-27] MEDS: FAT EMULSIONS 250 ML IV SCH (21:00)
[2022-06-27] MEDS: NA PHOS IV SCH ×9 (21:00)
[2022-06-27] MEDS: TPN PERIPHERAL IV SCH ×9 (21:00)
[2022-06-28 01:08] VITALS: BP_SYST 163
[2022-06-28] MEDS: BENZTROPINE MESYLATE 1 MG TABLET PO SCH ×2 (09:00→21:00)
[2022-06-28] MEDS: MEGESTROL ACETATE 400 MG/10 ML UDC PO SCH (09:00)
[2022-06-28] MEDS: LACTULOSE 20 GM/30 ML UDC PO SCH (09:00)
[2022-06-28] MEDS: MULTIVITAMINS TAB 1 TABLET PO SCH ×2 (09:00→21:00)
[2022-06-28] MEDS: BALSAM PERU/CASTOR OIL 56.7 GM OINT...G. TP SCH (09:00)
[2022-06-28] MEDS: CHOLECALCIFEROL (VITAMIN D3) 2,000 UNIT TABLET PO SCH (09:00)
[2022-06-28] MEDS: HONEY WOUND DRESSING 1 EACH TP SCH (09:00)
[2022-06-28] MEDS: PANTOPRAZOLE SODIUM 40 MG/VIAL (PROTONIX) IVP SCH (09:17)
--- NOTE | 2022-06-28 10:09 | NUR ---
PATIENT CONTINUES TO REFUSE PT TREATMENT. PATIENT IS STATING SHE IS TOO TIRED TO WORK WITH THE THERAPIST.
[2022-06-28] MEDS: FAT EMULSIONS 250 ML IV SCH (16:22)
[2022-06-28] MEDS: SODIUM ACETATE IV SCH ×9 (16:23)
[2022-06-28] MEDS: TPN PERIPHERAL IV SCH ×9 (16:23)
[2022-06-28] MEDS: LR 1,000 ML IV SCH (16:23)
[2022-06-28] MEDS: NA PHOS IV SCH ×9 (16:23)
[2022-06-28] MEDS: [UNRECOGNIZED DRUG - OTHER] IV SCH ×9 (16:23)
--- NOTE | 2022-06-28 16:25 | NUR ---
Double lumen midline placed to left upper arm by picc line nurse. Patient tolerated procedure well. TPN, lipids and IVF resumed. Sami Hilliard RN.
[2022-06-28 16:45] LABS: ALANINE AMINOTRANSFERASE 91 U/L (12-78); ALBUMIN 1.5 g/dL (3.4-4.8); ANION GAP 10 (5-15); ASPARTATE AMINOTRANSFERASE 84 U/L (10-37); CHLORIDE 103 mmol/L (98-107); CREATININE 0.87 mg/dL (0.55-1.30); GLUCOSE 102 mg/dL (70-99); PHOSPHORUS 3.3 mg/dL (2.7-4.5); TOTAL BILIRUBIN 0.7 mg/dL (0.0-1.0); UREA NITROGEN, BLOOD 28 mg/dL (8-21)
[2022-06-28] MEDS: cloNIDine HCL 0.1 MG TABLET PO PRN (22:11)
[2022-06-28 22:12] VITALS: BP_SYST 166
--- NOTE | 2022-06-29 04:12 | NUR ---
PT AWAKE AND ALERT BUT REFUSED ALL CARE AND MEDICATIONS.ON TPN AT 90 ML/HR, LIPID 5 ML/HR AND LR AT 40 ML/HR VIA LEFT UPPER ARM DOUBLE LUMEN MID LINE. RT ARM WITH CAST AND LEFT ARM SWOLLEN AND RED. WOUND DRESSING ON COCCYX AND RT BUTTOCK INTACT. NO BM. F/C PATENT.BS-WNL.
[2022-06-29] MEDS: LR 1,000 ML IV SCH (05:47)
[2022-06-29 08:00] VITALS: BP_SYST 161
--- NOTE | 2022-06-29 08:00 | NUR ---
Yesterday I spoke w/patient's sister Susy- . She stated the family has decided against hospice at this time. Her nephew,Wilbert Mcgrath, will be here [facility] from [facility], to assess the patient's needs and help decide the plan of care. I will continue to look for SNF placement w/TPN.
[2022-06-29] MEDS: BENZTROPINE MESYLATE 1 MG TABLET PO SCH ×3 (09:00→23:15)
[2022-06-29] MEDS: MULTIVITAMINS TAB 1 TABLET PO SCH ×2 (09:00→22:38)
[2022-06-29] MEDS: LACTULOSE 20 GM/30 ML UDC PO SCH (09:00)
[2022-06-29] MEDS: CHOLECALCIFEROL (VITAMIN D3) 2,000 UNIT TABLET PO SCH (09:00)
[2022-06-29] MEDS: MEGESTROL ACETATE 400 MG/10 ML UDC PO SCH (09:00)
[2022-06-29 09:05] LABS: ALANINE AMINOTRANSFERASE 66 U/L (12-78); ALBUMIN 1.3 g/dL (3.4-4.8); ANION GAP 11 (5-15); ASPARTATE AMINOTRANSFERASE 71 U/L (10-37); CALCIUM 7.9 mg/dL (8.4-11.0); CHLORIDE 103 mmol/L (98-107); CREATININE 0.63 mg/dL (0.55-1.30); GLUCOSE 122 mg/dL (70-99); PHOSPHORUS 3.3 mg/dL (2.7-4.5); TOTAL BILIRUBIN 0.7 mg/dL (0.0-1.0); UREA NITROGEN, BLOOD 30 mg/dL (8-21)
--- NOTE | 2022-06-29 09:57 | NUR ---
>>>PT NOTES<<< PATIENT REFUSED PHYSICAL THERAPY TODAY FOR NO APPARENT REASON. ATTEMPTED 3X TO ENCOURAGE HER BUT TO NO AVAIL.
[2022-06-29] MEDS: PANTOPRAZOLE SODIUM 40 MG/VIAL (PROTONIX) IVP SCH (10:59)
[2022-06-29 11:29] VITALS: BP_SYST 148
--- NOTE | 2022-06-29 11:49 | NUR ---
Warehouse Delivery Driver MOBILE CRANE OPERATOR received a call from APS Roller Printer, Mrs. Ruano, , who stated Deputies who had been at the pts. home, (probably when pt. was found down in her home and a welfare check was made) filed an APS report due to horrific hoarding in the home. APS Roller Printer stated they were going to close the case but if pt. is discharged back home, a case needs to be open once again. MOBILE CRANE OPERATOR called sister Susy, and left a message asking for a call back.
--- NOTE | 2022-06-29 12:17 | NUR ---
Nutrition F/U RD reviewed pts current EMR including diet hx, physician notes, nursing notes, pertinent labs/meds/procedures, care trends and care activity. Subjective Information: RD visited pt's bedside this afternoon. Pt asleep at time of visit. RD witnessed TPN w/ lipids infusing as per pharmacy orders. Per EMR review, still unclear whether pt will go to palliative care versus hospice; pt continues w/ poor appetite/refusal to eat and confusion; negligible PO intake records noted; abd is soft, non-distended w/ hypoactive bowel sounds; LBM 06/27 x 1; Ted score: 10 -- wound eval 06/15 noted reviewed, pt has multiple wounds; wt remains stable since admission. Current plan for TPN support and oral grat PO diet (pureed) is adequate/appropriate. Current Diet Order/Nutrition Support: Puree, NTL, Ensure BID x10 days & PPN D20%, AA10% at 90 ml/hr+ 20% ILE @ 5 mL/hr via peripheral line % PO intake Negligible intakes since 06/18 LBM 06/27 x 1 Estimated Energy Expenditure (kcals/day) 7779-5911 (25-30 kcal/kg IBW d/t GERIAT) Estimated Protein Required (g/day) 92-119 (1.4-1.8 g/kg IBW d/t wounds) Estimated Fluid Required (l/day) 1.6-1.9 (1mL/kcal maintenance) Problem/Etiology/Signs/Symptoms *Increased energy and protein utilization r/t metabolic demands a/e/b estimated nutritional needs for wound healing. *Ongoing * Suboptimal PPN support R/T underfeeding AEB current PPN prescription meets 39% of estimated caloric needs and 65% of lower end of estimated protein needs. *Improving Dietitian Recommendations * Continue Puree, NTL diet for oral grat * PPN D20%, AA10% at 100 ml/hr (goal rate), IL20% at 5 ml/hr daily via peripheral line Provides: 1536 kcal/day, 120 gm protein/day, 2250 ml total volume/day, and GIR: 2.3 mg CHO/kg/min Meets: 93% of lower end of estimated caloric needs and 101% of upper end of estimated protein needs Follow up High risk: see pt in 2-3 days GS, MPH, RD
--- NOTE | 2022-06-29 12:20 | NUR ---
Dietitian Recommendations * Continue Puree, NTL diet for oral grat * PPN D20%, AA10% at 100 ml/hr (goal rate), IL20% at 5 ml/hr daily via peripheral line Provides: 1536 kcal/day, 120 gm protein/day, 2250 ml total volume/day, and GIR: 2.3 mg CHO/kg/min Meets: 93% of lower end of estimated caloric needs and 101% of upper end of estimated protein needs GS, MPH, RD Please refer to Nutrition F/U for further details. Thanks!
[2022-06-29] MEDS: HONEY WOUND DRESSING 1 EACH TP SCH (14:55)
[2022-06-29] MEDS: BALSAM PERU/CASTOR OIL 56.7 GM OINT...G. TP SCH (14:56)
[2022-06-29 17:36] VITALS: BP_SYST 167
--- NOTE | 2022-06-29 18:00 | NUR ---
PATIENT REFUSED GLUCOSE CHECK Patient refused glucose check for the second time this shift. Attempted to explain the importance of monitoring her blood sugar, patient continued to refuse and attempted to hit nurse with her casted arm.
--- NOTE | 2022-06-29 18:51 | NUR ---
CLOSING NOTE Patient in bed resting, eating dinner with MEDICAL DIAGNOSTIC RADIOGRAPHER feeding her. Patient able to swallow well. Patient refused most care throughout the shift and attempted to hit staff. IV site is clean, dry, intact, and running prescribed fluids. Breathing is nonlabored and even on room air. Patient is currently on an air mattress, encouraged patient to move in bed and turn q2h. All needs met at this time and safety checks made. Will endorse to film processing shift supervisor nurse.
--- NOTE | 2022-06-29 20:00 | NUR ---
OPENING NOTE- PT AWAKE AND MOANS. REFUSED PAIN MED OR WATER. TPN, LIPID AND LR NFUSING VIA LEFT UPPER ARM MID LINE. LEFT ARM STILL SWOLLEN- KEPT ELEVATED ON PILLOW.
[2022-06-29] MEDS ORDERED: TPN PERIPHERAL IV SCH ×9 (21:00)
[2022-06-29] MEDS ORDERED: NA PHOS IV SCH ×9 (21:00)
[2022-06-29] MEDS ORDERED: [UNRECOGNIZED DRUG - OTHER] IV SCH ×9 (21:00)
[2022-06-29] MEDS ORDERED: SODIUM ACETATE IV SCH ×9 (21:00)
[2022-06-29] MEDS: FAT EMULSIONS 250 ML IV SCH (22:25)
[2022-06-29] MEDS: cloNIDine HCL 0.1 MG TABLET PO PRN (23:15)
[2022-06-30 00:18] VITALS: BP_SYST 177
[2022-06-30] MEDS: LR 1,000 ML IV SCH (05:52)
[2022-06-30 06:29] LABS: ALANINE AMINOTRANSFERASE 80 U/L (12-78); ALBUMIN 1.4 g/dL (3.4-4.8); ANION GAP 7 (5-15); ASPARTATE AMINOTRANSFERASE 64 U/L (10-37); CALCIUM 7.8 mg/dL (8.4-11.0); CHLORIDE 102 mmol/L (98-107); CREATININE 0.79 mg/dL (0.55-1.30); GLUCOSE 116 mg/dL (70-99); PHOSPHORUS 3.2 mg/dL (2.7-4.5); TOTAL BILIRUBIN 0.4 mg/dL (0.0-1.0); UREA NITROGEN, BLOOD 34 mg/dL (8-21)
--- NOTE | 2022-06-30 06:45 | NUR ---
CLOSING NOTE- PT REMAINS STABLE. STILL REFUSED TO TURN. HAD BM X 1. COCCYX AND LEFT BUTTOCK MEPILEX DRESSING INTACT. BS- 110 THIS AM. GIVEN CLONIDINE ORAL X 1 FOR HIGH BP -177/106(RLL).
[2022-06-30 08:00] VITALS: BP_SYST 160
[2022-06-30] MEDS: HONEY WOUND DRESSING 1 EACH TP SCH (09:00)
[2022-06-30] MEDS: MEGESTROL ACETATE 400 MG/10 ML UDC PO SCH (10:03)
[2022-06-30] MEDS: PANTOPRAZOLE SODIUM 40 MG/VIAL (PROTONIX) IVP SCH (10:04)
[2022-06-30] MEDS: BENZTROPINE MESYLATE 1 MG TABLET PO SCH ×2 (10:04→22:01)
[2022-06-30] MEDS: CHOLECALCIFEROL (VITAMIN D3) 2,000 UNIT TABLET PO SCH (10:04)
[2022-06-30] MEDS: LACTULOSE 20 GM/30 ML UDC PO SCH (10:04)
[2022-06-30] MEDS: MULTIVITAMINS TAB 1 TABLET PO SCH ×2 (10:04→22:01)
[2022-06-30] MEDS: BALSAM PERU/CASTOR OIL 56.7 GM OINT...G. TP SCH (10:06)
[2022-06-30 13:38] VITALS: BP_SYST 159
[2022-06-30 17:14] VITALS: BP_SYST 188
--- NOTE | 2022-06-30 18:00 | NUR ---
lethargic confused,sleeping quietly in bed,midline in left upper arm ,on continuous IVF,TPN and lipids infusion,total care provided,right arm with splint on, gaurav area swollen around F/C noted, came seen pt and made awared of that poor appetite,give po meds crushed and mixed with apple sauce,aspiration precaution maintained,needs attended,hourly rounds made,safety maintained.
--- NOTE | 2022-06-30 18:49 | NUR ---
>>>PT NOTES<<< REFUSED PHYSICAL THERAPY FOR NO APPARENT REASON, RN NOTIFIED.
--- NOTE | 2022-06-30 19:12 | NUR ---
Received pt in bed, aox1, lethargic and confused, TPN at 100cc, LR at 40cc and lipids at 5cc infusing into lue midline, double lumen, on bedrest, right arm on cast, elevated, refused skin check, aspiration precaution maintained with HOB elevated, f/c in place, drainage bag below bladder level, BLE offloaded with pillow, both heels with xerofoam dsg, low bed, will continue with plan of care
[2022-06-30] MEDS ORDERED: [UNRECOGNIZED DRUG - OTHER] IV SCH ×9 (21:00)
[2022-06-30] MEDS ORDERED: NA PHOS IV SCH ×9 (21:00)
[2022-06-30] MEDS ORDERED: SODIUM ACETATE IV SCH ×9 (21:00)
[2022-06-30] MEDS ORDERED: TPN PERIPHERAL IV SCH ×9 (21:00)
[2022-06-30] MEDS: FAT EMULSIONS 250 ML IV SCH (22:00)
[2022-07-01 00:26] VITALS: BP_SYST 155
--- NOTE | 2022-07-01 06:31 | NUR ---
Pt in bed, aox1, lethargic and confused, TPN at 100cc, LR at 40cc and lipids at 5cc infusing into lue midline, double lumen, on bedrest, right arm on cast, elevated, aspiration precaution maintained with HOB elevated, accucheck stable, no insulin coverage, f/c in place, drainage bag below bladder level, BLE offloaded with pillow, both heels with xerofoam dsg, low bed, call light within easy reach, will endorse to AM RN
[2022-07-01 06:56] LABS: BASOPHILS % (AUTO) 0.5 % (0.0-2.0); EOSINOPHILS # (AUTO) 0.1 K/uL (0.0-0.4); EOSINOPHILS % (AUTO) 1.4 % (0.0-4.0); HEMATOCRIT 33.7 % (36-48); HEMOGLOBIN 11.1 g/dL (12.0-16.0); LYMPHOCYTES # (AUTO) 1.6 K/uL (1.0-5.5); LYMPHOCYTES % (AUTO) 18.1 % (20.5-51.5); MEAN CORPUSCULAR HEMOGLOBIN 27 pg (27-31); MEAN CORPUSCULAR HGB CONC 33 % (32-36); MEAN CORPUSCULAR VOLUME 81 fL (79.0-98.0); MONOCYTES % (AUTO) 11.3 % (1.7-9.3); NEUTROPHILS # (AUTO) 5.9 K/uL (1.8-7.7); NEUTROPHILS % (AUTO) 68.7 % (40.0-70.0); PLATELET COUNT (AUTO) 295 K/uL (130-430); RED BLOOD CELL COUNT(AUTO) 4.16 MIL/uL (4.2-6.2); RED CELL DISTRIBUTION WIDTH 15.4 % (9.0-15.0); WHITE BLOOD COUNT (AUTO) 8.6 K/uL (4.8-10.8)
[2022-07-01 07:17] LABS: ALANINE AMINOTRANSFERASE 80 U/L (12-78); ALBUMIN 1.6 g/dL (3.4-4.8); ANION GAP 9 (5-15); ASPARTATE AMINOTRANSFERASE 57 U/L (10-37); CHLORIDE 101 mmol/L (98-107); CREATININE 0.72 mg/dL (0.55-1.30); GLUCOSE 112 mg/dL (70-99); PHOSPHORUS 3.3 mg/dL (2.7-4.5); TOTAL BILIRUBIN 0.4 mg/dL (0.0-1.0); TRIGLYCERIDES 83 mg/dL (30-150); UREA NITROGEN, BLOOD 37 mg/dL (8-21)
--- NOTE | 2022-07-01 07:45 | NUR ---
OPENING NOTES AWAKE. DID NOT RESPOND TO ANY ORIENTATION QUESTIONS. NO SHORTNESS OF BREATH ON ROOM AIR. DENIES ANY PAIN. REFUSED HEAD TO TOE ASSESSMENT. TPN, LIPID AND IV FLUID INFUSING WELL. SAFETY CHECKS DONE. EDUCATED INFORMATION TECHNOLOGY INTERNSHIP LIGHT AND FALL PREVENTION BUT PATIENT DID NOT VERBALIZE UNDERSTANDING.
[2022-07-01 08:00] VITALS: BP_SYST 165
[2022-07-01] MEDS: LACTULOSE 20 GM/30 ML UDC PO SCH (09:00)
[2022-07-01] MEDS: MEGESTROL ACETATE 400 MG/10 ML UDC PO SCH (09:00)
[2022-07-01] MEDS: CHOLECALCIFEROL (VITAMIN D3) 2,000 UNIT TABLET PO SCH (09:00)
[2022-07-01] MEDS: PANTOPRAZOLE SODIUM 40 MG/VIAL (PROTONIX) IVP SCH (09:47)
[2022-07-01] MEDS: MULTIVITAMINS TAB 1 TABLET PO SCH ×2 (09:48→20:19)
[2022-07-01] MEDS: BENZTROPINE MESYLATE 1 MG TABLET PO SCH ×2 (09:48→20:19)
[2022-07-01] MEDS: BALSAM PERU/CASTOR OIL 56.7 GM OINT...G. TP SCH (09:49)
[2022-07-01] MEDS: HONEY WOUND DRESSING 1 EACH TP SCH (09:49)
--- NOTE | 2022-07-01 10:00 | NUR ---
MED PASS PATIENT ONLY TOOK A COUPLE OF HER ORAL MEDS AND REFUSED THE REST. IV PROTONIX GIVEN.
[2022-07-01 10:15] VITALS: BP_SYST 155
--- NOTE | 2022-07-01 12:40 | NUR ---
ROUNDS; BLOOD SUGAR CHECK NO SIGN OF RESPIRATORY DISTRESS OR PAIN. PATIENT WAS UNCOOPERATIVE WITH BLOOD SUGAR CHECK AND WAS TRYING TO HIT NURSE. EXPLAINED PURPOSE BUT PATIENT DID NOT VERBALIZE UNDERSTANDING. BLOOD SUGAR WAS TAKEN AFTER A COUPLE OF ATTEMPTS. SAFETY CHECKS DONE. CALL LIGHT WITHIN REACH.
[2022-07-01 13:57] VITALS: BP_SYST 152
--- NOTE | 2022-07-01 14:33 | NUR ---
PATIENT CONTINUES TO REFUSE PT TREATMENT FOR OOB AND IN BED ACTIVITIES.
--- NOTE | 2022-07-01 16:00 | NUR ---
WOUND CARE TOLERATED PROCEDURE.
--- NOTE | 2022-07-01 16:22 | NUR ---
PATIENT PARTICIPATION IN WRIST/HAND XRAY IS POOR AGAIN. UNABLE TO OBTAIN USEFUL IMAGE FOR EVALUATION.
[2022-07-01 17:47] VITALS: BP_SYST 160
--- NOTE | 2022-07-01 18:40 | NUR ---
CLOSING NOTES RESTING. REFUSED TO EAT. FOUGHT WITH NURSE WHILE BEING REPOSITIONED. SAFETY CHECKS DONE. CALL LIGHT WITHIN REACH.
[2022-07-01 20:00] VITALS: BP_SYST 148
[2022-07-01] MEDS: FAT EMULSIONS 250 ML IV SCH (20:17)
[2022-07-01] MEDS ORDERED: NA PHOS IV SCH ×9 (21:00)
[2022-07-01] MEDS ORDERED: [UNRECOGNIZED DRUG - OTHER] IV SCH ×9 (21:00)
[2022-07-01] MEDS ORDERED: TPN PERIPHERAL IV SCH ×9 (21:00)
[2022-07-01] MEDS ORDERED: SODIUM ACETATE IV SCH ×9 (21:00)
[2022-07-01] MEDS: LR 1,000 ML IV SCH (21:39)
--- NOTE | 2022-07-01 22:23 | NUR ---
Patient in bed. Turned repositioned q2. Circulation to the patient's left hand WNL. No acute distress noted. Will continue to monitor.
[2022-07-02 04:00] VITALS: BP_SYST 147
[2022-07-02 07:41] LABS: ALANINE AMINOTRANSFERASE 60 U/L (12-78); ALBUMIN 1.8 g/dL (3.4-4.8); ANION GAP 8 (5-15); ASPARTATE AMINOTRANSFERASE 37 U/L (10-37); CALCIUM 8.3 mg/dL (8.4-11.0); CHLORIDE 101 mmol/L (98-107); CREATININE 0.76 mg/dL (0.55-1.30); GLUCOSE 117 mg/dL (70-99); PHOSPHORUS 3.9 mg/dL (2.7-4.5); TOTAL BILIRUBIN 0.4 mg/dL (0.0-1.0); UREA NITROGEN, BLOOD 36 mg/dL (8-21)
[2022-07-02] MEDS: MULTIVITAMINS TAB 1 TABLET PO SCH ×2 (09:00→21:02)
[2022-07-02] MEDS: LACTULOSE 20 GM/30 ML UDC PO SCH (09:00)
[2022-07-02] MEDS: BENZTROPINE MESYLATE 1 MG TABLET PO SCH ×2 (09:00→21:02)
[2022-07-02] MEDS: CHOLECALCIFEROL (VITAMIN D3) 2,000 UNIT TABLET PO SCH (09:00)
[2022-07-02] MEDS: MEGESTROL ACETATE 400 MG/10 ML UDC PO SCH (09:00)
[2022-07-02] MEDS: PANTOPRAZOLE SODIUM 40 MG/VIAL (PROTONIX) IVP SCH (09:25)
[2022-07-02] MEDS: BALSAM PERU/CASTOR OIL 56.7 GM OINT...G. TP SCH (09:26)
[2022-07-02] MEDS: HONEY WOUND DRESSING 1 EACH TP SCH (09:26)
--- NOTE | 2022-07-02 11:55 | NUR ---
PATIENT CONTINUES TO REFUSE PT FOR NO APPARENT REASON.
[2022-07-02 12:24] VITALS: BP_SYST 149
--- NOTE | 2022-07-02 15:47 | NUR ---
Spoke w/ patient's nephew-Wilbert Mcgrath. He will tour [facility] as possible placement for the patient. I explained we are waiting for authorization from [facility]. [phone] gave authorization for [facility] #[id number] and ambulance authorization for [facility] #[id number]. I spoke w/ Abdirizak-another nephew [phone]-he stated the family would not agree to transfer to [facility] today, that the transfer was happening too quick. The family needs to discuss the transfer. Colette notified of the family needing time to decide on the transfer.
--- NOTE | 2022-07-02 16:10 | NUR ---
CONTINUATION OF CARE REPORT WAS ENDORSED BY RN PATIENT IS AWAKE AND ALERT , INCONTIENCE CARE PROVIDED WITH FELLMONGERY WORKER. PATIENT IS CONFUSED AND TRYING TO HIT NURSES. ATTEMPTED TO REORIENT BUT IS STILL CONFUSED. ALL SAFETY PRECAUTIONS IN PLACE. CLOSE TO NURSES STATION. NO OTHER NEEDS AT THIS TIME.
[2022-07-02 16:47] VITALS: BP_SYST 148
--- NOTE | 2022-07-02 18:58 | NUR ---
RN CLOSING NOTE PATIENT IS AWAKE AND ALERT WITH CONFUSION PATIENTS ACCU CHECK DONE NO COVERAGE NEEDED. PATIENT HAS ALL SAFETY PRECAUTIONS IN PLACE ATTEMPTED TO EDUCATED CONTROL EQUIPMENT ELECTRICIAN LIGHT BUT IS UNABLE TO. PATIENT IS CLOSE TO NURSES STATION. NO SIGNS OF ANY DISTRESS. PATIENT HAS NO OTHER NEEDS AT THIS TIME.
[2022-07-02 19:51] VITALS: BP_SYST 155
[2022-07-02 19:57] VITALS: BP_SYST 155
--- NOTE | 2022-07-02 20:00 | NUR ---
REPORT WAS ENDORSED BY RN PATIENT IS AWAKE TO VOICE, INCONTIENCE CARE PROVIDED WITH FOX FARMER. PATIENT IS CONFUSED AND TRYING TO HIT NURSES. ATTEMPTED TO REORIENT BUT IS STILL CONFUSED. PT ON TPN AND LIQUIND, bp ELEVATED 155/105 WILL MONITOR, HAS CATAPRES PRN. ALL SAFETY PRECAUTIONS IN PLACE. CLOSE TO NURSES STATION. NO OTHER NEEDS AT THIS TIME.
[2022-07-02] MEDS ORDERED: [UNRECOGNIZED DRUG - OTHER] IV SCH ×9 (21:00)
[2022-07-02] MEDS: LR 1,000 ML IV SCH (21:00)
[2022-07-02] MEDS ORDERED: NA PHOS IV SCH ×9 (21:00)
[2022-07-02] MEDS ORDERED: TPN PERIPHERAL IV SCH ×9 (21:00)
[2022-07-02] MEDS ORDERED: SODIUM ACETATE IV SCH ×9 (21:00)
[2022-07-02] MEDS: FAT EMULSIONS 250 ML IV SCH (21:09)
[2022-07-02 21:43] VITALS: BP_SYST 155
--- NOTE | 2022-07-03 | NUR ---
bp elevated 187/114 given 0.1 mg catapres. will reasses
[2022-07-03] MEDS: cloNIDine HCL 0.1 MG TABLET PO PRN ×2 (00:26→04:55)
[2022-07-03 00:38] VITALS: BP_SYST 189
--- NOTE | 2022-07-03 05:00 | NUR ---
at 0200 pt bp was 147/77, at 0445 160/100, given 0.1 catapres. will continue to monitor
[2022-07-03 07:49] LABS: ALANINE AMINOTRANSFERASE 39 U/L (12-78); ALBUMIN 1.5 g/dL (3.4-4.8); ANION GAP 7 (5-15); ASPARTATE AMINOTRANSFERASE 22 U/L (10-37); CALCIUM 7.8 mg/dL (8.4-11.0); CHLORIDE 99 mmol/L (98-107); CREATININE 0.73 mg/dL (0.55-1.30); GLUCOSE 138 mg/dL (70-99); PHOSPHORUS 3.8 mg/dL (2.7-4.5); TOTAL BILIRUBIN 0.5 mg/dL (0.0-1.0); UREA NITROGEN, BLOOD 38 mg/dL (8-21)
[2022-07-03 08:00] VITALS: BP_SYST 126
--- NOTE | 2022-07-03 08:00 | NUR ---
Initial notes sleepy, open her eyes a little and went back to sleep. Turned and repositioned. on special bed. Did not eat breakfast. On TPN, LIpids and IVF. afebrile. On O2 2L. will monitor.
[2022-07-03] MEDS: LACTULOSE 20 GM/30 ML UDC PO SCH (09:00)
[2022-07-03] MEDS: BALSAM PERU/CASTOR OIL 56.7 GM OINT...G. TP SCH (09:00)
[2022-07-03] MEDS: CHOLECALCIFEROL (VITAMIN D3) 2,000 UNIT TABLET PO SCH (09:00)
[2022-07-03] MEDS: HONEY WOUND DRESSING 1 EACH TP SCH (09:00)
[2022-07-03] MEDS: MEGESTROL ACETATE 400 MG/10 ML UDC PO SCH (09:00)
[2022-07-03] MEDS: MULTIVITAMINS TAB 1 TABLET PO SCH ×2 (09:00→21:35)
[2022-07-03] MEDS: BENZTROPINE MESYLATE 1 MG TABLET PO SCH ×2 (09:00→21:35)
[2022-07-03] MEDS: PANTOPRAZOLE SODIUM 40 MG/VIAL (PROTONIX) IVP SCH (10:22)
--- NOTE | 2022-07-03 11:30 | NUR ---
MD ROUNDS Seen by Dr Moore and made aware that patient is been sleeping since this morning and unable to give morning meds.
[2022-07-03 12:38] VITALS: BP_SYST 110
--- NOTE | 2022-07-03 15:44 | NUR ---
Nutrition F/U RD reviewed pts current EMR including diet hx, physician notes, nursing notes, pertinent labs/meds/procedures, care trends and care activity. Admitting Diagnosis: ALOC and hyperkalemia Reviewed Pertinent Medical/Surgical Hx Medical Record; Patient Medical History Comment: per EMR: 69-year-old elderly woman who was brought in by EMS from her home for altered mental status. Per patient's neighbor, she lives alone. Her 12 years ago and she does not have any children. Neighbor states that the patient once in a while will notice that the food that is routinely delivered to her was sitting outside longer than usual, so a welfare check was called for. On arrival, patient was found consciously laying on the floor with her right arm underneath her and the house was a mess. Patient's neighbor is unaware of her medical history. Patient is only oriented to her name. Subjective Information: RD visited pt at bedside earlier this afternoon. Pt was seen sleeping soundly. TPN w/ lipids seen infusing as per pharmacy order. Pureed diet lunch tray observed at bedside table, untouched. Per EMR review, Dane BID has been ordered since 06/19, and no documentation of it being given since 06/26 -- may be likely d/t pt very negligible PO intakes; abd is soft w/ active bowel sounds; no documented changes in wt observed; LBM x2 07/02; on 2 L/min O2 via NC; Ted Score: 10 -- reviewed Public Bath Attendant note 06/15 -- pt has multiple wounds and skin issues. TPN support remains appropriate. Current Diet Order/Nutrition Support: Puree, NTL, Ensure BID x14 days & PPN D20%, AA10% at 104.4 ml/hr, IL 20% at 5 ml/hr via peripheral line % PO intake: Negligible intakes since 06/18 Estimated Energy Expenditure (kcals/day) 5556-5281 (25-30 kcal/kg IBW d/t GERIAT) Estimated Protein Required (g/day) 92-119 (1.4-1.8 g/kg IBW d/t wounds) Estimated Fluid Required (l/day) 1.6-1.9 (1mL/kcal maintenance) Problem/Etiology/Signs/Symptoms *Increased energy and protein utilization r/t metabolic demands a/e/b estimated nutritional needs for wound healing. *Ongoing * Suboptimal PPN support R/T underfeeding AEB current PPN prescription meets 39% of estimated caloric needs and 65% of lower end of estimated protein needs. *Improved Dietitian Recommendations * Continue Puree, NTL diet w/ Ensure BID and Dane BID for oral grat * Continue PPN D20%, AA10% at 104.4 ml/hr (goal rate), IL20% at 5 ml/hr daily via peripheral line Provides: 1593 kcal/day, 125 gm protein/day, 2626 ml total volume/day, and GIR: 2.4 mg CHO/kg/min Meets: 97% of lower end of estimated caloric needs and 105% of upper end of estimated protein needs Follow-Up High risk: F/U 2-3 days
--- NOTE | 2022-07-03 15:55 | NUR ---
Dietitian Recommendations * Continue Puree, NTL diet w/ Ensure BID and Dane BID for oral grat * Continue PPN D20%, AA10% at 104.4 ml/hr (goal rate), IL20% at 5 ml/hr daily via peripheral line Provides: 1593 kcal/day, 125 gm protein/day, 2626 ml total volume/day, and GIR: 2.4 mg CHO/kg/min Meets: 97% of lower end of estimated caloric needs and 105% of upper end of estimated protein needs LP, MS, RD Please refer to Nutrition F/U for details.
[2022-07-03 16:33] VITALS: BP_SYST 120
--- NOTE | 2022-07-03 18:21 | NUR ---
closing notes awake, refusing to eat dinner. No distress
[2022-07-03 20:10] VITALS: BP_SYST 144
--- NOTE | 2022-07-03 20:10 | NUR ---
Opening notes Pt eyes closed, easily awakens to light touch. VSS, no s/s distress noted. PPN/Lipids infusing at ordered rate MARIA DEL ROSARIO midline 2 lumens, good blood return. R. arm cast/splint intact. Bed low, locked, siderails up x4, alarm on. To endorsed.
[2022-07-03] MEDS: LR 1,000 ML IV SCH (20:43)
[2022-07-03] MEDS ORDERED: SODIUM ACETATE IV SCH ×10 (21:00)
[2022-07-03] MEDS ORDERED: [UNRECOGNIZED DRUG - OTHER] IV SCH ×10 (21:00)
[2022-07-03] MEDS ORDERED: TPN PERIPHERAL IV SCH ×10 (21:00)
[2022-07-03] MEDS ORDERED: NA PHOS IV SCH ×10 (21:00)
[2022-07-03] MEDS: FAT EMULSIONS 250 ML IV SCH (21:37)
[2022-07-04 00:48] VITALS: BP_SYST 149
--- NOTE | 2022-07-04 05:28 | NUR ---
Closing notes Pt asleep, easily awakens to light touch, no s/s distress noted. PPN/Lipids infusing at ordered rate MARIA DEL ROSARIO midline 2 lumens. R. arm cast/splint intact with pillow support. Pericare provided for small bowel incontinence. Bed low, locked, siderails up x4, alarm on. To endorse to AM nurse.
[2022-07-04 07:14] LABS: ALANINE AMINOTRANSFERASE 35 U/L (12-78); ALBUMIN 1.4 g/dL (3.4-4.8); ANION GAP 9 (5-15); ASPARTATE AMINOTRANSFERASE 21 U/L (10-37); CALCIUM 7.8 mg/dL (8.4-11.0); CHLORIDE 100 mmol/L (98-107); CREATININE 0.71 mg/dL (0.55-1.30); GLUCOSE 132 mg/dL (70-99); PHOSPHORUS 3.5 mg/dL (2.7-4.5); TOTAL BILIRUBIN 0.8 mg/dL (0.0-1.0); UREA NITROGEN, BLOOD 39 mg/dL (8-21)
[2022-07-04 08:00] VITALS: BP_SYST 139
[2022-07-04] MEDS: BENZTROPINE MESYLATE 1 MG TABLET PO SCH ×3 (09:00→21:00)
[2022-07-04] MEDS: LACTULOSE 20 GM/30 ML UDC PO SCH ×2 (09:00→11:18)
[2022-07-04] MEDS: MULTIVITAMINS TAB 1 TABLET PO SCH ×3 (09:00→21:00)
[2022-07-04] MEDS: MEGESTROL ACETATE 400 MG/10 ML UDC PO SCH ×2 (09:00→11:18)
[2022-07-04] MEDS: CHOLECALCIFEROL (VITAMIN D3) 2,000 UNIT TABLET PO SCH ×2 (09:00→11:19)
[2022-07-04] MEDS: PANTOPRAZOLE SODIUM 40 MG/VIAL (PROTONIX) IVP SCH (11:18)
[2022-07-04] MEDS: HONEY WOUND DRESSING 1 EACH TP SCH (11:19)
[2022-07-04] MEDS: BALSAM PERU/CASTOR OIL 56.7 GM OINT...G. TP SCH (11:20)
[2022-07-04 12:47] VITALS: BP_SYST 141
[2022-07-04 16:52] VITALS: BP_SYST 140
--- NOTE | 2022-07-04 18:30 | NUR ---
Miss Trinidad has been assessed as indicated. She has no s/s of distress or discomfort. She adamantly refuses oral medications. She is resting quietly at this time
--- NOTE | 2022-07-04 19:15 | NUR ---
Handoff has been given to Shannan
[2022-07-04 19:45] VITALS: BP_SYST 158
[2022-07-04] MEDS ORDERED: NA PHOS IV SCH ×10 (21:00)
[2022-07-04] MEDS ORDERED: SODIUM ACETATE IV SCH ×10 (21:00)
[2022-07-04] MEDS ORDERED: TPN PERIPHERAL IV SCH ×10 (21:00)
[2022-07-04] MEDS ORDERED: [UNRECOGNIZED DRUG - OTHER] IV SCH ×10 (21:00)
[2022-07-04] MEDS: FAT EMULSIONS 250 ML IV SCH (22:27)
[2022-07-04] MEDS: LR 1,000 ML IV SCH (22:58)
[2022-07-05 00:31] VITALS: BP_SYST 169
--- NOTE | 2022-07-05 06:50 | NUR ---
Per laborer salvage, pt refused lab draw and stated pt striking her arms. Per lab Will ask another laborer salvage to draw.
[2022-07-05 07:49] LABS: BASOPHILS # (AUTO) 0.1 K/uL (0.0-0.2); BASOPHILS % (AUTO) 0.5 % (0.0-2.0); EOSINOPHILS # (AUTO) 0.1 K/uL (0.0-0.4); EOSINOPHILS % (AUTO) 0.9 % (0.0-4.0); HEMATOCRIT 32.1 % (36-48); HEMOGLOBIN 10.6 g/dL (12.0-16.0); LYMPHOCYTES # (AUTO) 1.8 K/uL (1.0-5.5); LYMPHOCYTES % (AUTO) 14.5 % (20.5-51.5); MEAN CORPUSCULAR HEMOGLOBIN 27 pg (27-31); MEAN CORPUSCULAR HGB CONC 33 % (32-36); MEAN CORPUSCULAR VOLUME 82 fL (79.0-98.0); MONOCYTES # (AUTO) 1.6 K/uL (0.0-1.0); MONOCYTES % (AUTO) 12.4 % (1.7-9.3); NEUTROPHILS % (AUTO) 71.7 % (40.0-70.0); PLATELET COUNT (AUTO) 346 K/uL (130-430); RED BLOOD CELL COUNT(AUTO) 3.92 MIL/uL (4.2-6.2); RED CELL DISTRIBUTION WIDTH 16.4 % (9.0-15.0); WHITE BLOOD COUNT (AUTO) 12.5 K/uL (4.8-10.8)
[2022-07-05 08:09] LABS: ALANINE AMINOTRANSFERASE 51 U/L (12-78); ALBUMIN 1.5 g/dL (3.4-4.8); ANION GAP 9 (5-15); CALCIUM 8.3 mg/dL (8.4-11.0); CHLORIDE 101 mmol/L (98-107); CREATININE 0.83 mg/dL (0.55-1.30); GLUCOSE 134 mg/dL (70-99); PHOSPHORUS 3.7 mg/dL (2.7-4.5); TOTAL BILIRUBIN 0.8 mg/dL (0.0-1.0); TRIGLYCERIDES 75 mg/dL (30-150); UREA NITROGEN, BLOOD 39 mg/dL (8-21)
[2022-07-05 08:24] LABS: ASPARTATE AMINOTRANSFERASE 41 U/L (10-37)
[2022-07-05] MEDS: BENZTROPINE MESYLATE 1 MG TABLET PO SCH ×2 (09:00→21:39)
[2022-07-05] MEDS: MEGESTROL ACETATE 400 MG/10 ML UDC PO SCH (09:00)
[2022-07-05] MEDS: LACTULOSE 20 GM/30 ML UDC PO SCH (09:00)
[2022-07-05] MEDS: CHOLECALCIFEROL (VITAMIN D3) 2,000 UNIT TABLET PO SCH (09:00)
[2022-07-05] MEDS: MULTIVITAMINS TAB 1 TABLET PO SCH ×2 (09:00→21:59)
--- NOTE | 2022-07-05 10:10 | NUR ---
PATIENT CONTINUES TO REFUSE PT TREATMENT FOR NO APPARENT REASON.
[2022-07-05 12:05] VITALS: BP_SYST 153
[2022-07-05] MEDS: HONEY WOUND DRESSING 1 EACH TP SCH (15:34)
[2022-07-05] MEDS: PANTOPRAZOLE SODIUM 40 MG/VIAL (PROTONIX) IVP SCH (15:34)
[2022-07-05] MEDS: BALSAM PERU/CASTOR OIL 56.7 GM OINT...G. TP SCH (15:35)
--- NOTE | 2022-07-05 15:42 | NUR ---
Patient accepted at [facility] room 117B Number for report [phone]. [facility] to transport at [phone]. Patient's sister Susy agreed to transport .
[2022-07-05 15:56] VITALS: BP_SYST 149
--- NOTE | 2022-07-05 19:05 | NUR ---
Dr Moore made aware of preliminary US results that are positive for DVT DC held for 1 day New order for medication appropriate for DVT treatment given. Addendum: 07/05/22 at 2010 by Adriana Vu RN RN First dose to be given tonite
--- NOTE | 2022-07-05 19:09 | NUR ---
Transport contacted and order placed on Will Call spoke to Shamir at [facility]. [phone] authorization [id number]
--- NOTE | 2022-07-05 19:11 | NUR ---
Charge nurse made aware of DC delay
--- NOTE | 2022-07-05 19:15 | NUR ---
Danica márquez notified DC to be held one day. [facility] bed will be available
--- NOTE | 2022-07-05 19:15 | NUR ---
Handoff given to Fawad
--- NOTE | 2022-07-05 19:18 | NUR ---
Miss Trinidad's sister James was made aware of the delay of DC as well as the reason. [phone]
--- NOTE | 2022-07-05 19:20 | NUR ---
voicemail left for Patricia in case management related to the DC delay and the reason why
[2022-07-05 20:00] VITALS: BP_SYST 186
--- NOTE | 2022-07-05 20:00 | NUR ---
Received pt in bed. Noticed white creamy discharges from both eye. Cleaned face/eye with warm towel. Pt not cooperative,agitated and verbally abusive. Rt arm with cast and left arm mid line with TPN/LIPID/LR infusing. Also left arm swollen. Kept lt arm on pillow.
[2022-07-05] MEDS ORDERED: ENOXAPARIN SODIUM 60 MG/0.6 ML SYRINGE SUBCUT SCH (21:00)
[2022-07-05] MEDS ORDERED: SODIUM ACETATE IV SCH ×10 (21:00)
[2022-07-05] MEDS ORDERED: [UNRECOGNIZED DRUG - OTHER] IV SCH ×10 (21:00)
[2022-07-05] MEDS ORDERED: NA PHOS IV SCH ×10 (21:00)
[2022-07-05] MEDS ORDERED: TPN PERIPHERAL IV SCH ×10 (21:00)
[2022-07-05] MEDS: cloNIDine HCL 0.1 MG TABLET PO PRN (21:40)
[2022-07-05] MEDS: LR 1,000 ML IV SCH (21:42)
[2022-07-05] MEDS: FAT EMULSIONS 250 ML IV SCH (21:45)
--- NOTE | 2022-07-05 23:00 | NUR ---
Given Lovenox 70 mg sub-Q.Pt was agitated and unable to give medication earlier.
[2022-07-06] VITALS: BP_SYST 158
--- NOTE | 2022-07-06 04:36 | NUR ---
Pt took medications last night with apple source- cogentin and clonidine( bp was 189/90 mmhg at 20:00 pm). Pt's sleeping after MN. Repositioned as needed for comfort. coccyx/buttock mepilex dressing intact. F/c patent and drained yellow cloudy urine. Pending discharge today after couple of more doses of Lovenox for left arm DVT per day shift report.
--- NOTE | 2022-07-06 05:32 | NUR ---
MRSA SWAB DONE.
[2022-07-06 07:51] LABS: ALANINE AMINOTRANSFERASE 43 U/L (12-78); ALBUMIN 1.4 g/dL (3.4-4.8); ANION GAP 9 (5-15); ASPARTATE AMINOTRANSFERASE 35 U/L (10-37); CALCIUM 8.1 mg/dL (8.4-11.0); CHLORIDE 101 mmol/L (98-107); CREATININE 0.72 mg/dL (0.55-1.30); GLUCOSE 124 mg/dL (70-99); PHOSPHORUS 3.7 mg/dL (2.7-4.5); TOTAL BILIRUBIN 0.7 mg/dL (0.0-1.0); UREA NITROGEN, BLOOD 38 mg/dL (8-21)
[2022-07-06] MEDS: PANTOPRAZOLE SODIUM 40 MG/VIAL (PROTONIX) IVP SCH (11:06)
[2022-07-06] MEDS: BENZTROPINE MESYLATE 1 MG TABLET PO SCH ×2 (11:06→20:32)
[2022-07-06] MEDS: CHOLECALCIFEROL (VITAMIN D3) 2,000 UNIT TABLET PO SCH (11:07)
[2022-07-06] MEDS: MEGESTROL ACETATE 400 MG/10 ML UDC PO SCH (11:07)
[2022-07-06] MEDS: LACTULOSE 20 GM/30 ML UDC PO SCH (11:07)
[2022-07-06] MEDS: MULTIVITAMINS TAB 1 TABLET PO SCH ×2 (11:07→20:32)
[2022-07-06] MEDS: HONEY WOUND DRESSING 1 EACH TP SCH (11:08)
[2022-07-06] MEDS: BALSAM PERU/CASTOR OIL 56.7 GM OINT...G. TP SCH (11:08)
--- NOTE | 2022-07-06 11:42 | NUR ---
PATIENT CONTINUES TO REFUSE PT TREATMENT DESPITE MAX ENCOURAGEMENT.
[2022-07-06] MEDS: ENOXAPARIN SODIUM 80 MG/0.8 ML SYRINGE SUBCUT SCH ×2 (12:11→20:33)
[2022-07-06 12:30] VITALS: BP_SYST 140
--- NOTE | 2022-07-06 15:30 | NUR ---
MARIA DEL ROSARIO mid line removed without any resistance as per dr sheridan order. internal length 20 cm noted witnessed by jose CALDERON RN. PT tolerated well. clean dressing applied. no active bleeding noted.
[2022-07-06 16:30] VITALS: BP_SYST 135
[2022-07-06] MEDS: NEOMYCIN/POLYMYXN B/GRAMICIDIN 10 ML OPHT. DROPS OP SCH ×2 (18:00→21:30)
--- NOTE | 2022-07-06 18:17 | NUR ---
blood sugar 80. being assisted with dinner now.
--- NOTE | 2022-07-06 18:45 | NUR ---
Miss Zayas has been assessed as indicated. She was not DC today. Left arm central line has been removed. She has been assisted with all meals. Del Cid remains in place. She has no IV access at this time Dr. Moore is aware. Miss Trinidad is restying quietly at this time
--- NOTE | 2022-07-06 18:45 | NUR ---
Per conversation Miss Trinidad's family has declined DC at this time
--- NOTE | 2022-07-06 19:00 | NUR ---
RECEIVED PT IN BED.AOX1.ON RA.NOT IN RESPIRATORY DISTRESS NOTED.R ARM CAST NOTED.L ARM SWOLLEN NOTED, ELEVATED WITH PILLOW.NO IV ACCESS, PER PREVIOUS RN, MD VAZQUEZ WAS MADE AWARE THAT PT HAS NO IV ACCESS.BED IN LOWEST POSITION.REPOSITIONED PT.
[2022-07-06 20:00] VITALS: BP_SYST 123
[2022-07-06] MEDS: LR 1,000 ML IV SCH (20:30)
[2022-07-06] MEDS: ERYTHROMYCIN BASE 0.5% EYE OINT...G. OP SCH (20:31)
[2022-07-06] MEDS ORDERED: MIRTAZAPINE 15 MG TABLET PO SCH (21:00)
[2022-07-06] MEDS ORDERED: TPN PERIPHERAL IV SCH ×10 (21:00)
[2022-07-06] MEDS ORDERED: [UNRECOGNIZED DRUG - OTHER] IV SCH ×10 (21:00)
[2022-07-06] MEDS ORDERED: SODIUM ACETATE IV SCH ×10 (21:00)
[2022-07-06] MEDS ORDERED: SODIUM CHLORIDE IV SCH ×10 (21:00)
--- NOTE | 2022-07-06 22:00 | NUR ---
KEPT PT CLEAN AND DRY.REPOSITIONED PT.
[2022-07-07] VITALS: BP_SYST 144
--- NOTE | 2022-07-07 | NUR ---
BLOOD GLUCOSE CHECKED-114 MG/DL.
--- NOTE | 2022-07-07 04:00 | NUR ---
PT IS ASLEEP.NOT IN RESPIRATORY DISTRESS NOTED.
[2022-07-07] MEDS: NEOMYCIN/POLYMYXN B/GRAMICIDIN 10 ML OPHT. DROPS OP SCH ×5 (05:36→22:11)
--- NOTE | 2022-07-07 06:19 | NUR ---
CHANGED PADS AND REPOSITIONED PT.PT HAS EVEN AND UNLABORED BREATHING NOTED.
[2022-07-07 06:27] LABS: BASOPHILS # (AUTO) 0.1 K/uL (0.0-0.2); BASOPHILS % (AUTO) 0.5 % (0.0-2.0); EOSINOPHILS # (AUTO) 0.2 K/uL (0.0-0.4); EOSINOPHILS % (AUTO) 1.3 % (0.0-4.0); HEMATOCRIT 30.8 % (36-48); HEMOGLOBIN 10.3 g/dL (12.0-16.0); LYMPHOCYTES # (AUTO) 1.9 K/uL (1.0-5.5); LYMPHOCYTES % (AUTO) 13.6 % (20.5-51.5); MEAN CORPUSCULAR HEMOGLOBIN 27 pg (27-31); MEAN CORPUSCULAR HGB CONC 34 % (32-36); MEAN CORPUSCULAR VOLUME 81 fL (79.0-98.0); MONOCYTES # (AUTO) 1.5 K/uL (0.0-1.0); MONOCYTES % (AUTO) 10.4 % (1.7-9.3); NEUTROPHILS # (AUTO) 10.4 K/uL (1.8-7.7); NEUTROPHILS % (AUTO) 74.2 % (40.0-70.0); PLATELET COUNT (AUTO) 467 K/uL (130-430); RED BLOOD CELL COUNT(AUTO) 3.79 MIL/uL (4.2-6.2); RED CELL DISTRIBUTION WIDTH 16.2 % (9.0-15.0)
[2022-07-07 07:09] LABS: ALANINE AMINOTRANSFERASE 128 U/L (12-78); ALBUMIN 1.5 g/dL (3.4-4.8); ANION GAP 9 (5-15); ASPARTATE AMINOTRANSFERASE 90 U/L (10-37); CALCIUM 8.3 mg/dL (8.4-11.0); CHLORIDE 101 mmol/L (98-107); GLUCOSE 94 mg/dL (70-99); PHOSPHORUS 3.6 mg/dL (2.7-4.5); UREA NITROGEN, BLOOD 32 mg/dL (8-21)
--- NOTE | 2022-07-07 07:15 | NUR ---
OPENING NOTE Received report from YADI Batista. Upon entering room, patient is sleeping in bed. No evidence of distress, discomfort or pain. Patient is difficult to arouse. She opens her eyes to pain but is markedly lethargic. No IV site noted. Received in report that MD aware. Call light within reach. Del Cid catheter visualized and intact. Safety precautions observed.
[2022-07-07 08:10] VITALS: BP_SYST 142
[2022-07-07] MEDS: PANTOPRAZOLE SODIUM 40 MG/VIAL (PROTONIX) IVP SCH (09:00)
[2022-07-07] MEDS: ERYTHROMYCIN BASE 0.5% EYE OINT...G. OP SCH ×2 (09:11→22:11)
[2022-07-07] MEDS: ENOXAPARIN SODIUM 80 MG/0.8 ML SYRINGE SUBCUT SCH ×2 (09:11→22:12)
[2022-07-07] MEDS: BENZTROPINE MESYLATE 1 MG TABLET PO SCH ×2 (09:12→22:16)
[2022-07-07] MEDS: CHOLECALCIFEROL (VITAMIN D3) 2,000 UNIT TABLET PO SCH (09:12)
[2022-07-07] MEDS: MULTIVITAMINS TAB 1 TABLET PO SCH ×2 (09:12→22:10)
[2022-07-07] MEDS: MEGESTROL ACETATE 400 MG/10 ML UDC PO SCH (09:13)
[2022-07-07] MEDS: BALSAM PERU/CASTOR OIL 56.7 GM OINT...G. TP SCH (09:14)
[2022-07-07] MEDS: HONEY WOUND DRESSING 1 EACH TP SCH (09:16)
[2022-07-07] MEDS: LACTULOSE 20 GM/30 ML UDC PO SCH (09:17)
[2022-07-07 12:00] VITALS: BP_SYST 164
--- NOTE | 2022-07-07 13:00 | NUR ---
MD ROUNDS Dr. Moore at bedside.
[2022-07-07] MEDS: cloNIDine HCL 0.1 MG TABLET PO PRN ×2 (13:09→16:33)
[2022-07-07] MEDS ORDERED: PANTOPRAZOLE SODIUM 40 MG TAB PO ONE (13:30)
--- NOTE | 2022-07-07 16:21 | NUR ---
FAMILY COMMUNICATION Spoke to sister Susy on the phone, updates given.
[2022-07-07 16:30] VITALS: BP_SYST 169
--- NOTE | 2022-07-07 19:05 | NUR ---
Pt in bed, lethargic, arousal to touch, on bedrest, right arm on cast, elevated, aspiration precaution maintained with HOB elevated, f/c in place, drainage bag below bladder level, BLE offloaded with pillow, both heels with xerofoam dsg, low bed, call light within easy reach, no iv access, will continue with care plan
[2022-07-07 19:10] VITALS: BP_SYST 105
[2022-07-07] MEDS: LR 1,000 ML IV SCH (20:43)
[2022-07-07 22:10] VITALS: BP_SYST 122
[2022-07-08 00:21] VITALS: BP_SYST 131
[2022-07-08] MEDS: NEOMYCIN/POLYMYXN B/GRAMICIDIN 10 ML OPHT. DROPS OP SCH ×5 (05:41→22:12)
[2022-07-08 06:31] LABS: BASOPHILS # (AUTO) 0.1 K/uL (0.0-0.2); BASOPHILS % (AUTO) 0.8 % (0.0-2.0); EOSINOPHILS # (AUTO) 0.2 K/uL (0.0-0.4); EOSINOPHILS % (AUTO) 1.8 % (0.0-4.0); HEMATOCRIT 26.5 % (36-48); HEMOGLOBIN 9.1 g/dL (12.0-16.0); LYMPHOCYTES # (AUTO) 1.7 K/uL (1.0-5.5); LYMPHOCYTES % (AUTO) 20.3 % (20.5-51.5); MEAN CORPUSCULAR HEMOGLOBIN 28 pg (27-31); MEAN CORPUSCULAR HGB CONC 34 % (32-36); MEAN CORPUSCULAR VOLUME 81 fL (79.0-98.0); MONOCYTES % (AUTO) 11.8 % (1.7-9.3); NEUTROPHILS # (AUTO) 5.5 K/uL (1.8-7.7); NEUTROPHILS % (AUTO) 65.3 % (40.0-70.0); PLATELET COUNT (AUTO) 428 K/uL (130-430); RED BLOOD CELL COUNT(AUTO) 3.27 MIL/uL (4.2-6.2); RED CELL DISTRIBUTION WIDTH 15.9 % (9.0-15.0); WHITE BLOOD COUNT (AUTO) 8.4 K/uL (4.8-10.8)
[2022-07-08 06:53] LABS: ANION GAP 7 (5-15); CALCIUM 8.2 mg/dL (8.4-11.0); CHLORIDE 103 mmol/L (98-107); GLUCOSE 99 mg/dL (70-99); UREA NITROGEN, BLOOD 33 mg/dL (8-21)
--- NOTE | 2022-07-08 07:05 | NUR ---
Pt in bed, lethargic, arousal to touch, on bedrest, right arm on cast, elevated, aspiration precaution maintained with HOB elevated, f/c in place, drainage bag below bladder level, BLE offloaded with pillow, both heels with xerofoam dsg, low bed, call light within easy reach, no iv access, MD Iyer aware, BS checked and no coverage,vss, safety prec maintained, will be endorsed to incoming RN
[2022-07-08 09:16] VITALS: BP_SYST 137
--- NOTE | 2022-07-08 11:17 | NUR ---
Dr. Moore at bedside. He was notified that pt is altered and lethargic. He reports this is the pt's baseline at times but she did open eyes for him. He reported that she normally reports "no" to all cares and meds but will comply. He stated it is all r/t her dementia state.
[2022-07-08] MEDS: ERYTHROMYCIN BASE 0.5% EYE OINT...G. OP SCH ×2 (11:24→22:13)
[2022-07-08] MEDS: BALSAM PERU/CASTOR OIL 56.7 GM OINT...G. TP SCH (11:24)
[2022-07-08] MEDS: HONEY WOUND DRESSING 1 EACH TP SCH (11:25)
[2022-07-08] MEDS: LACTULOSE 20 GM/30 ML UDC PO SCH (11:32)
[2022-07-08] MEDS: MULTIVITAMINS TAB 1 TABLET PO SCH ×2 (11:32→22:12)
[2022-07-08] MEDS: CHOLECALCIFEROL (VITAMIN D3) 2,000 UNIT TABLET PO SCH (11:32)
[2022-07-08] MEDS: PANTOPRAZOLE SODIUM 40 MG TAB PO SCH (11:32)
[2022-07-08] MEDS: ENOXAPARIN SODIUM 80 MG/0.8 ML SYRINGE SUBCUT SCH ×2 (11:33→22:13)
[2022-07-08] MEDS: MEGESTROL ACETATE 400 MG/10 ML UDC PO SCH (11:33)
--- NOTE | 2022-07-08 11:36 | NUR ---
PATIENT CONTINUES TO REFUSE PT TREATMENT FOR NO APPARENT REASON.
--- NOTE | 2022-07-08 11:53 | NUR ---
Pt is now opening eyes to command at times and cooperative with taking meds and Ensure clear. Glucose was 710 and she has some pudding with meds as well. US at bedside
[2022-07-08 13:00] VITALS: BP_SYST 135
--- NOTE | 2022-07-08 13:03 | NUR ---
Family Service Caseworker STRINGER MACHINE TENDER attempted to call pts. sister Susy a few times today and left. STRINGER MACHINE TENDER called Susy' daughter in law, Turner, left a message. STRINGER MACHINE TENDER called pts. nephjo Reveles, and spoke to him explaining pts has a bed still available at [facility], [facility]. Family can send pt. to [facility], begin paying for pts. hospital stay, send pt. home with family providing car or appeal to [facility]. Abdirizak stated he spoke to Patricia about this option and did not want the phone number STRINGER MACHINE TENDER wanted to share with him as Abdirizak stated he already had this info. Abdirizak stated he called Tim yesterday and [facility] stated they would call him back and never did. Abdirizak stated he wants pt. to go to [facility] and [facility] stated they had a bed for pt. Abdirizak also stated if Tim wrote a ARCHANA for [facility] cant they just transfer the ARCHANA. STRINGER MACHINE TENDER explained the process this takes and since Tim already wrote an ARCHANA for [facility], they will not write another one for [facility] [place]. Abdirizak also stated he was thinking of canceling pts. insurance with [facility]. Abdirizak stated he and family had two major concerns. Pt. has a blood clot and Abdirizak stated Dr. Moore spoke to him stating the clot was related to the midline and so he had to take it out as per Abdirizak. Since pt. will not have a TPN, she can now go to a [facility] SNF who originally would not take pt. with TPN. STRINGER MACHINE TENDER asked Abdirizak what the family decision would be. Abdirizak will try to reach his mom and call his cousin Wilbert. Abdirizak called STRINGER MACHINE TENDER back and stated he will drive to his moms' home, Susy to speak with her re. placement with [facility] since she is the DPOA and she will most likely give approval. Abdirizak stated his two concerns were the blood clot and sufficient tx. and bed sores, if they would be properly cared for.
--- NOTE | 2022-07-08 14:00 | NUR ---
CM: CHLOE Simpson discussed discharge to [facility] and presented the discharge options to Susy via phone. Susy agreed with the transfer to [facility] today ( see Tatiana's note). I spoke with nephew/Abdirizak # [phone], explained the discharge options and process and addressed his concern about the treatment plan for DVT. I repeated the treatment plan per dr. Moore: to continue anticoagulant at snf. After discussion, Abdirizak agreed with the discharge to [facility] today. Abdirizak confirmed that all family members agreed with the transfer to [facility] and will not change their minds. They do not want to pay the hospital bills since [facility] already approved ARCHANA for [facility]. Per Ivis, [facility] , no bed today but she will make one available tomorrow. I updated Dr Moore , he will give discharge order tomorrow. dir Patricia and Emeka Duarte made aware. - YADI Orona made aware.
--- NOTE | 2022-07-08 14:02 | NUR ---
Dr. Moore was notified that the repeat US of the LA is still positive for DVT in the left subclavian vein. We discussed necessity of PIV and he stated the pt is still okay to be without access.
--- NOTE | 2022-07-08 15:35 | NUR ---
I spoke with RAYMUNDO Simpson at 1410 and she reported that the pt's sister wanted to speak with me first before consenting with [facility] transfer. She reported to call [facility] with update. I spoke with Susy, sister, and she is agreeable to the transfer with blood thinners and wound care. I have called the extension for Julian and have been met with the voicemail twice at 1425 and 1510. Waiting for return call with plan of care.
[2022-07-08 16:53] VITALS: BP_SYST 136
--- NOTE | 2022-07-08 19:05 | NUR ---
Pt in bed, alert, confused, on bedrest, right arm on cast, elevated, aspiration precaution maintained with HOB elevated, f/c in place, drainage bag below bladder level, cloudy urine, BLE offloaded with pillow, both heels with xerofoam dsg, low bed, call light within easy reach, no iv access, MD Moore aware, will continue with care plan Around 9pm, pt was found lying across her bed. Pt was assisted and positioned well, oob elevated. Received an order for benadryl 25mg PO x1 dose for agitation, pt trying to get oob
[2022-07-08 19:13] VITALS: BP_SYST 153
[2022-07-08] MEDS: LR 1,000 ML IV SCH (20:43)
[2022-07-08] MEDS ORDERED: DIPHENHYDRAMINE HCL 12.5 MG/5 ML UDC PO ONE (21:00)
[2022-07-09] VITALS: BP_SYST 136
[2022-07-09 01:39] VITALS: BP_SYST 149
[2022-07-09] MEDS: NEOMYCIN/POLYMYXN B/GRAMICIDIN 10 ML OPHT. DROPS OP SCH ×5 (06:27→22:10)
--- NOTE | 2022-07-09 06:37 | NUR ---
Pt in bed, alert, confused, on bedrest, slept well throughout the night, right arm on cast, elevated, aspiration precaution maintained with HOB elevated, f/c in place, drainage bag below bladder level, cloudy urine, BLE offloaded with pillow, both heels with xerofoam dsg, low bed, call light within easy reach, no iv access, MD Moore aware, safety prec maintained, ijeoma endorse to next RN
[2022-07-09 07:05] LABS: ALANINE AMINOTRANSFERASE 79 U/L (12-78); ALBUMIN 1.5 g/dL (3.4-4.8); ANION GAP 8 (5-15); ASPARTATE AMINOTRANSFERASE 46 U/L (10-37); CALCIUM 8.7 mg/dL (8.4-11.0); CHLORIDE 103 mmol/L (98-107); CREATININE 0.96 mg/dL (0.55-1.30); GLUCOSE 107 mg/dL (70-99); TOTAL BILIRUBIN 0.5 mg/dL (0.0-1.0); UREA NITROGEN, BLOOD 28 mg/dL (8-21)
[2022-07-09 07:27] VITALS: BP_SYST 159
[2022-07-09] MEDS: HONEY WOUND DRESSING 1 EACH TP SCH (09:53)
[2022-07-09] MEDS: LACTULOSE 20 GM/30 ML UDC PO SCH (09:53)
[2022-07-09] MEDS: ERYTHROMYCIN BASE 0.5% EYE OINT...G. OP SCH ×2 (09:54→22:04)
[2022-07-09] MEDS: CHOLECALCIFEROL (VITAMIN D3) 2,000 UNIT TABLET PO SCH (09:54)
[2022-07-09] MEDS: PANTOPRAZOLE SODIUM 40 MG TAB PO SCH (09:54)
[2022-07-09] MEDS: MEGESTROL ACETATE 400 MG/10 ML UDC PO SCH (09:54)
[2022-07-09] MEDS: MULTIVITAMINS TAB 1 TABLET PO SCH ×2 (09:54→22:10)
[2022-07-09] MEDS: ENOXAPARIN SODIUM 80 MG/0.8 ML SYRINGE SUBCUT SCH ×2 (09:54→22:10)
[2022-07-09] MEDS: BALSAM PERU/CASTOR OIL 56.7 GM OINT...G. TP SCH (09:56)
[2022-07-09 11:52] VITALS: BP_SYST 133
[2022-07-09] MEDS ORDERED: [UNRECOGNIZED DRUG - CODE] OP (15:32)
[2022-07-09] MEDS ORDERED: Lactulose PO (15:32)
[2022-07-09] MEDS ORDERED: MEGE400O4 PO (15:32)
[2022-07-09] MEDS ORDERED: VENELEX60G TP (15:32)
[2022-07-09] MEDS ORDERED: MULT400T13 PO (15:32)
[2022-07-09] MEDS ORDERED: [UNRECOGNIZED DRUG - OTHER] TP (15:32)
[2022-07-09] MEDS ORDERED: LOVI80 SUBCUT (15:32)
[2022-07-09] MEDS ORDERED: PRO40 PO (15:32)
[2022-07-09] MEDS ORDERED: ERYEYE OP (15:32)
[2022-07-09] MEDS ORDERED: VITD2000 PO (15:32)
[2022-07-09 17:05] VITALS: BP_SYST 148
--- NOTE | 2022-07-09 18:12 | NUR ---
Pt is calm but when attempting to do cares or provide meds she becomes agitated and swings arms. Pt is refusing repositioning and wound care at this time.
--- NOTE | 2022-07-09 18:48 | NUR ---
Attempted to provide wound care and take pictures but pt still refusing, agitated, and swinging. Will endorse to the next shift.
[2022-07-09 20:00] VITALS: BP_SYST 130
[2022-07-09] MEDS: LR 1,000 ML IV SCH (20:43)
[2022-07-10] VITALS (9 sets, daily range): BP systolic 122–164
--- NOTE | 2022-07-10 07:10 | NUR ---
opening note received SBAR from night RN. Patient in bed, respirations even, non labored, bed in low and locked position call light within reach. bed alarm on.
--- NOTE | 2022-07-10 09:30 | NUR ---
nieves patient incontinent of bladder, nieves is not draining, sediment in nieves catheter. removed nieves and patient voided yellow urine. provided pericare, changed linens, and repositioned with pillow support. denies any pain or discomfort.
[2022-07-10] MEDS: MEGESTROL ACETATE 400 MG/10 ML UDC PO SCH (10:20)
[2022-07-10] MEDS: CHOLECALCIFEROL (VITAMIN D3) 2,000 UNIT TABLET PO SCH (10:20)
[2022-07-10] MEDS: cloNIDine HCL 0.1 MG TABLET PO PRN (10:21)
[2022-07-10] MEDS: PANTOPRAZOLE SODIUM 40 MG TAB PO SCH (10:21)
[2022-07-10] MEDS: MULTIVITAMINS TAB 1 TABLET PO SCH ×2 (10:21→21:09)
[2022-07-10] MEDS: ERYTHROMYCIN BASE 0.5% EYE OINT...G. OP SCH ×2 (10:22→21:10)
[2022-07-10] MEDS: ENOXAPARIN SODIUM 80 MG/0.8 ML SYRINGE SUBCUT SCH ×2 (10:22→21:10)
[2022-07-10] MEDS: LACTULOSE 20 GM/30 ML UDC PO SCH (10:23)
[2022-07-10] MEDS: HONEY WOUND DRESSING 1 EACH TP SCH (10:23)
[2022-07-10] MEDS: BALSAM PERU/CASTOR OIL 56.7 GM OINT...G. TP SCH (10:24)
[2022-07-10] MEDS: NEOMYCIN/POLYMYXN B/GRAMICIDIN 10 ML OPHT. DROPS OP SCH ×4 (10:25→21:09)
--- NOTE | 2022-07-10 11:16 | NUR ---
transfer of care provided sbar to RN. patient in bed, respirations even, non labored, bed in low and locked position, call light within reach, bed alarm on
--- NOTE | 2022-07-10 11:25 | NUR ---
ASSUMED CARE: REPORT RECEIVED FROM CITLALI.PATIENT AWAKE DURING ROUNDS. NO IV ACCESS.MD AWARE PER NURSE.ROOM AIR.BED LOCKED AT LOWEST POSITION. NOT IN ANY DISTRESS.
--- NOTE | 2022-07-10 11:30 | NUR ---
MD ROUNDS: PATIENT SEEN BY DR VAZQUEZ AND MADE AWARE THE VAGINAL SWELLING. WITH ORDERS FOR OB GYNE CONSULT DR FRANCE. DC FINGERSTICK CHECKING PER MD.
--- NOTE | 2022-07-10 15:00 | NUR ---
RN ROUNDS: RESTING. STABLE.
--- NOTE | 2022-07-10 18:45 | NUR ---
EVENING ROUNDS: PATIENT RESTING. BED LOCKED AT LOWEST POSITION. SAFETY MEASURES RENDERED. NOT IN ANY DISTRESS.
[2022-07-10] MEDS: LR 1,000 ML IV SCH (20:43)
[2022-07-11 01:16] VITALS: BP_SYST 148
[2022-07-11] MEDS: NEOMYCIN/POLYMYXN B/GRAMICIDIN 10 ML OPHT. DROPS OP SCH ×5 (06:00→22:00)
[2022-07-11] MEDS: ERYTHROMYCIN BASE 0.5% EYE OINT...G. OP SCH ×3 (09:00→21:00)
[2022-07-11] MEDS: LACTULOSE 20 GM/30 ML UDC PO SCH (09:22)
[2022-07-11] MEDS: MEGESTROL ACETATE 400 MG/10 ML UDC PO SCH (09:22)
[2022-07-11] MEDS: ENOXAPARIN SODIUM 80 MG/0.8 ML SYRINGE SUBCUT SCH ×2 (09:22→21:34)
[2022-07-11] MEDS: MULTIVITAMINS TAB 1 TABLET PO SCH ×2 (09:23→21:29)
[2022-07-11] MEDS: PANTOPRAZOLE SODIUM 40 MG TAB PO SCH (09:23)
[2022-07-11] MEDS: CHOLECALCIFEROL (VITAMIN D3) 2,000 UNIT TABLET PO SCH (09:26)
[2022-07-11 11:30] VITALS: BP_SYST 127
[2022-07-11] MEDS: BALSAM PERU/CASTOR OIL 56.7 GM OINT...G. TP SCH (14:07)
[2022-07-11] MEDS: HONEY WOUND DRESSING 1 EACH TP SCH (14:18)
[2022-07-11 15:30] VITALS: BP_SYST 141
--- NOTE | 2022-07-11 15:55 | NUR ---
PATIENT HAD AN UNEVENTFUL DAY, TOLERATED MEDS AND DIET WELL. CALL PLACED TO MD FOR CLARIFICATION FOR EYE DROPS AWAITING RESPONSE. DRESSING CHANGE DONE TO SACRUM ORDERED. WILL CONTINUE TO MONITOR CLOSELY.
[2022-07-11 20:00] VITALS: BP_SYST 153
[2022-07-11] MEDS: LR 1,000 ML IV SCH (20:43)
[2022-07-12 01:37] VITALS: BP_SYST 162
[2022-07-12] MEDS: NEOMYCIN/POLYMYXN B/GRAMICIDIN 10 ML OPHT. DROPS OP SCH ×5 (06:00→21:49)
[2022-07-12] MEDS: ERYTHROMYCIN BASE 0.5% EYE OINT...G. OP SCH ×2 (09:00→21:38)
[2022-07-12] MEDS: MULTIVITAMINS TAB 1 TABLET PO SCH ×2 (09:00→21:37)
[2022-07-12] MEDS: ENOXAPARIN SODIUM 80 MG/0.8 ML SYRINGE SUBCUT SCH ×2 (09:00→21:37)
[2022-07-12] MEDS: HONEY WOUND DRESSING 1 EACH TP SCH (09:00)
[2022-07-12] MEDS: LACTULOSE 20 GM/30 ML UDC PO SCH (09:00)
[2022-07-12] MEDS: BALSAM PERU/CASTOR OIL 56.7 GM OINT...G. TP SCH (09:00)
[2022-07-12] MEDS: CHOLECALCIFEROL (VITAMIN D3) 2,000 UNIT TABLET PO SCH (09:00)
[2022-07-12] MEDS: PANTOPRAZOLE SODIUM 40 MG TAB PO SCH (09:00)
[2022-07-12] MEDS: MEGESTROL ACETATE 400 MG/10 ML UDC PO SCH (09:00)
[2022-07-12 11:25] VITALS: BP_SYST 152
[2022-07-12 15:15] VITALS: BP_SYST 161
[2022-07-12] MEDS: cloNIDine HCL 0.1 MG TABLET PO PRN (15:46)
--- NOTE | 2022-07-12 18:19 | NUR ---
CONSULTATION: REASON FOR CONSULT: VAGINAL SWELLING CONSULTING PHYSICIAN: EDILMA ORDERED BY: ATYLOR SPOKE WITH YUMIKO [phone]
--- NOTE | 2022-07-12 19:46 | NUR ---
PHYSICAL THERAPY CO-SIGN The Physical Therapy Progress Notes documented by Psychologist Counseling have been reviewed. Reviewed/Co-Signed by: Hitesh Dickson Documentation Done by:RITU MALCOLM Addendum: 07/12/22 at 1946 by Hitesh Dickson PT Amended: Links added.
[2022-07-12 20:00] VITALS: BP_SYST 165
[2022-07-13] VITALS: BP_SYST 137
[2022-07-13] MEDS: NEOMYCIN/POLYMYXN B/GRAMICIDIN 10 ML OPHT. DROPS OP SCH ×5 (05:49→21:10)
[2022-07-13 06:41] LABS: BASOPHILS % (AUTO) 0.5 % (0.0-2.0); EOSINOPHILS # (AUTO) 0.2 K/uL (0.0-0.4); EOSINOPHILS % (AUTO) 2.1 % (0.0-4.0); HEMATOCRIT 30.3 % (36-48); HEMOGLOBIN 10.2 g/dL (12.0-16.0); LYMPHOCYTES # (AUTO) 2.1 K/uL (1.0-5.5); LYMPHOCYTES % (AUTO) 28.5 % (20.5-51.5); MEAN CORPUSCULAR HEMOGLOBIN 27 pg (27-31); MEAN CORPUSCULAR HGB CONC 34 % (32-36); MEAN CORPUSCULAR VOLUME 81 fL (79.0-98.0); MONOCYTES # (AUTO) 0.7 K/uL (0.0-1.0); NEUTROPHILS # (AUTO) 4.3 K/uL (1.8-7.7); NEUTROPHILS % (AUTO) 58.9 % (40.0-70.0); PLATELET COUNT (AUTO) 455 K/uL (130-430); RED BLOOD CELL COUNT(AUTO) 3.74 MIL/uL (4.2-6.2); RED CELL DISTRIBUTION WIDTH 15.9 % (9.0-15.0); WHITE BLOOD COUNT (AUTO) 7.3 K/uL (4.8-10.8)
[2022-07-13 07:10] LABS: ALANINE AMINOTRANSFERASE 99 U/L (12-78); ALBUMIN 1.8 g/dL (3.4-4.8); ANION GAP 10 (5-15); ASPARTATE AMINOTRANSFERASE 56 U/L (10-37); CALCIUM 8.3 mg/dL (8.4-11.0); CHLORIDE 104 mmol/L (98-107); CREATININE 1.24 mg/dL (0.55-1.30); GLUCOSE 92 mg/dL (70-99); TOTAL BILIRUBIN 0.3 mg/dL (0.0-1.0); UREA NITROGEN, BLOOD 37 mg/dL (8-21)
[2022-07-13 08:00] VITALS: BP_SYST 174
[2022-07-13] MEDS: LACTULOSE 20 GM/30 ML UDC PO SCH (09:00)
[2022-07-13] MEDS: CHOLECALCIFEROL (VITAMIN D3) 2,000 UNIT TABLET PO SCH (09:00)
[2022-07-13] MEDS: MULTIVITAMINS TAB 1 TABLET PO SCH ×2 (09:00→21:08)
[2022-07-13] MEDS: MEGESTROL ACETATE 400 MG/10 ML UDC PO SCH (09:00)
[2022-07-13] MEDS: PANTOPRAZOLE SODIUM 40 MG TAB PO SCH (09:00)
[2022-07-13] MEDS: ENOXAPARIN SODIUM 80 MG/0.8 ML SYRINGE SUBCUT SCH ×2 (09:39→21:08)
[2022-07-13] MEDS: ERYTHROMYCIN BASE 0.5% EYE OINT...G. OP SCH ×2 (09:40→21:11)
[2022-07-13] MEDS: HONEY WOUND DRESSING 1 EACH TP SCH (09:40)
[2022-07-13] MEDS: BALSAM PERU/CASTOR OIL 56.7 GM OINT...G. TP SCH (09:40)
--- NOTE | 2022-07-13 11:26 | NUR ---
Nutrition F/U RD reviewed pts current EMR including diet hx, physician notes, nursing notes, pertinent labs/meds/procedures, care trends and care activity. Admitting Diagnosis: ALOC and hyperkalemia Reviewed Pertinent Medical/Surgical Hx Medical Record; Patient Medical History Comment: per EMR: 69-year-old elderly woman who was brought in by EMS from her home for altered mental status. Per patient's neighbor, she lives alone. Her 12 years ago and she does not have any children. Neighbor states that the patient once in a while will notice that the food that is routinely delivered to her was sitting outside longer than usual, so a welfare check was called for. On arrival, patient was found consciously laying on the floor with her right arm underneath her and the house was a mess. Patient's neighbor is unaware of her medical history. Patient is only oriented to her name. 07/06: TPN stopped, as pt is eating more when she is fed Subjective Information: Late f/u d/t info from LOS that pt will be DC daily but it has not happened yet. RD visited pt at bedside earlier this afternoon. Pt was seen sleeping soundly. RD tried to find RN and call her but had no luck. Per EMR review, Dane BID has been ordered since 06/19, it is being documented now- pt sometimes drinks but sometimes refuses; abd is soft, non-distended w/ active bowel sounds; no documented changes in wt observed; LBM x2 2/7; pt on room air; Ted Score: 12 . Pt is moving closer to meeting nutritional needs but not there yet. Current Diet Order/Nutrition Support: Puree, NTL, Ensure BID x 24 days % PO intake: Good avg of 76% x 9 meals Estimated Energy Expenditure (kcals/day) 5355-9081 (25-30 kcal/kg IBW d/t GERIAT) Estimated Protein Required (g/day) 92-119 (1.4-1.8 g/kg IBW d/t wounds) Estimated Fluid Required (l/day) 1.6-1.9 (1mL/kcal maintenance) Problem/Etiology/Signs/Symptoms *Increased energy and protein utilization r/t metabolic demands a/e/b estimated nutritional needs for wound healing. *Ongoing * Suboptimal PPN support R/T underfeeding AEB current PPN prescription meets 39% of estimated caloric needs and 65% of lower end of estimated protein needs. *Resolved Dietitian Recommendations * Continue Puree, NTL diet w/ Ensure BID and Dane BID * Continue 1:1 feeder and max encouragement Follow-Up High risk: F/U 2-3 days GS, MPH, RD
--- NOTE | 2022-07-13 11:27 | NUR ---
Dietitian Recommendations * Continue Puree, NTL diet w/ Ensure BID and Dane BID * Continue 1:1 feeder and max encouragement GS, MPH, RD Please refer to Nutrition F/U for further details. Thanks!
[2022-07-13 11:35] VITALS: BP_SYST 150
--- NOTE | 2022-07-13 15:24 | NUR ---
PHYSICAL THERAPY CO-SIGN The Physical Therapy Progress Notes documented by Fashion Adviser have been reviewed. Reviewed/Co-Signed by: Hitesh Dickson Documentation Done by:RITU MALCOLM Addendum: 07/13/22 at 1524 by Hitesh Dickson PT Amended: Links added.
[2022-07-13 16:53] VITALS: BP_SYST 133
[2022-07-13 20:05] VITALS: BP_SYST 176
--- NOTE | 2022-07-13 20:10 | NUR ---
Opening notes Pt asleep, easily awakens, no distress noted. Pt groans when BP is being taken on the leg. BP elevated, will medicate with BP med as needed. No IV access due to L. arm DVT. R. arm cast on. Bed low, locked, siderails up x4, alarm on. To monitor.
[2022-07-13] MEDS: cloNIDine HCL 0.1 MG TABLET PO PRN (21:08)
--- NOTE | 2022-07-13 21:08 | NUR ---
BP med BP med Catapres 0.1mg PO administered as needed, crushed with ensure via PO syringe, pt tolerated well.
--- NOTE | 2022-07-13 22:30 | NUR ---
Rounds/Pericare Pt incontinent of urine and soft BM. Pericare/linens changed. Skin care/wound care provided. Z guard applied to buttocks and covered with Optifoam dressing.
[2022-07-14 01:26] VITALS: BP_SYST 153
[2022-07-14] MEDS: NEOMYCIN/POLYMYXN B/GRAMICIDIN 10 ML OPHT. DROPS OP SCH ×5 (06:00→21:01)
--- NOTE | 2022-07-14 06:39 | NUR ---
Closing notes Pt asleep, resting in bed. No s/s distress noted. Bed low, locked, siderails up x4, alarm on. Incontinence care provided this AM. Safety maintained. To endorse to AM nurse.
--- NOTE | 2022-07-14 08:00 | NUR ---
OPENING NOTES ASLEEP, AROUSES TO LIGHT STIMULI. NO SHORTNESS OF BREATH ON ROOM AIR. NO SIGN OF PAIN. RIGHT WRIST CAST. SAFETY CHECKS DONE. CALL LIGHT WITHIN REACH.
[2022-07-14 08:14] VITALS: BP_SYST 157
[2022-07-14] MEDS: MULTIVITAMINS TAB 1 TABLET PO SCH ×2 (09:00→21:00)
[2022-07-14] MEDS: MEGESTROL ACETATE 400 MG/10 ML UDC PO SCH (09:00)
[2022-07-14] MEDS: LACTULOSE 20 GM/30 ML UDC PO SCH (09:00)
[2022-07-14] MEDS: PANTOPRAZOLE SODIUM 40 MG TAB PO SCH (09:00)
[2022-07-14] MEDS: CHOLECALCIFEROL (VITAMIN D3) 2,000 UNIT TABLET PO SCH (09:00)
[2022-07-14] MEDS: ENOXAPARIN SODIUM 80 MG/0.8 ML SYRINGE SUBCUT SCH ×2 (09:08→21:01)
[2022-07-14] MEDS: BALSAM PERU/CASTOR OIL 56.7 GM OINT...G. TP SCH (09:09)
[2022-07-14] MEDS: HONEY WOUND DRESSING 1 EACH TP SCH (09:09)
[2022-07-14] MEDS: ERYTHROMYCIN BASE 0.5% EYE OINT...G. OP SCH ×2 (09:09→21:02)
--- NOTE | 2022-07-14 09:30 | NUR ---
MED PASS ATTEMPTED TO FEED PATIENT; REFUSED. ASKED PATIENT IF SHE'S READY TO TAKE HER ORAL MEDS AND SHE REFUSED. EXPLAINED NEED FOR MED BUT STILL REFUSED. LOVENOX GIVEN. SAFETY CHECKS DONE. CALL LIGHT WITHIN REACH.
[2022-07-14 11:40] VITALS: BP_SYST 145
--- NOTE | 2022-07-14 12:30 | NUR ---
CAST REMOVED DR. COMBS CAME IN AND REMOVED PATIENT'S CAST. REPLACED WITH A WRIST BRACE. HE SAID THAT THE WRIST IS HEALING WELL.
[2022-07-14 16:41] VITALS: BP_SYST 148
--- NOTE | 2022-07-14 18:31 | NUR ---
CLOSING NOTES RESTING. NO SHORTNESS OF BREATH ON ROOM AIR. NO SIGN OF PAIN. ALL NEEDS MET THROUGHOUT SHIFT.
--- NOTE | 2022-07-14 20:30 | NUR ---
Opening notes Pt asleep, easily awakens, no distress noted. R. arm removable brace on. Frederick arms maintained floated on pillows. Bed low, locked, siderails up x4, alarm on. To monitor.
[2022-07-14 20:35] VITALS: BP_SYST 146
--- NOTE | 2022-07-15 05:40 | NUR ---
Closing notes Pt asleep, resting in bed. No s/s distress noted. Incontinence/skin care provided. Frederick arms maintained elevated on pillows. No IV access. Rt wrist removable brace on. Pt on low air mattress. Bed low, locked, siderails up x4, alarm on. Safety maintained. To endorse to AM nurse.
[2022-07-15] MEDS: NEOMYCIN/POLYMYXN B/GRAMICIDIN 10 ML OPHT. DROPS OP SCH ×4 (05:47→18:00)
[2022-07-15 08:00] VITALS: BP_SYST 142
--- NOTE | 2022-07-15 08:00 | NUR ---
RECEIVED PATIENT FROM PM NURSE, AWAKE BUT NOT ORIENTED, UNABLE TO VERBALIZE NEEDS, NO S/SX OF PAIN OR DISCOMFORT AT THIS TIME, WILL ASSUME ALL CARE OF PATIENT
[2022-07-15] MEDS: ENOXAPARIN SODIUM 80 MG/0.8 ML SYRINGE SUBCUT SCH (09:01)
[2022-07-15] MEDS: MULTIVITAMINS TAB 1 TABLET PO SCH (09:02)
[2022-07-15] MEDS: CHOLECALCIFEROL (VITAMIN D3) 2,000 UNIT TABLET PO SCH (09:02)
[2022-07-15] MEDS: PANTOPRAZOLE SODIUM 40 MG TAB PO SCH (09:02)
[2022-07-15] MEDS: LACTULOSE 20 GM/30 ML UDC PO SCH (09:03)
[2022-07-15] MEDS: MEGESTROL ACETATE 400 MG/10 ML UDC PO SCH (09:03)
[2022-07-15] MEDS: ERYTHROMYCIN BASE 0.5% EYE OINT...G. OP SCH (09:03)
[2022-07-15] MEDS: BALSAM PERU/CASTOR OIL 56.7 GM OINT...G. TP SCH (09:04)
[2022-07-15] MEDS: HONEY WOUND DRESSING 1 EACH TP SCH (09:04)
[2022-07-15 11:55] VITALS: BP_SYST 153
--- NOTE | 2022-07-15 14:40 | NUR ---
Patient accepted at [facility] Room 201A-number for report is [phone]. [facility] ambulance to transport at 5:30 PM. . Please call her sister Susy when the patient is transported [phone]
--- NOTE | 2022-07-15 15:00 | NUR ---
PATIENT REFUSING TO ALLOW SN TO ADMINISTER EYE DROPS, WILL ATTEMPT AGAIN AFTER DINER
[2022-07-15 16:57] VITALS: BP_SYST 150
[2022-07-15 17:07] VITALS: BP_SYST 140
--- NOTE | 2022-07-15 18:00 | NUR ---
PATIENT BEING TRANSFERRED TO [facility] VIA [facility], REPORT CALLED TO SN TATE AT ACCEPTING FACILITY, SISTER MISHA MADE AWARE, NO OTHER CONCERNS
--- NOTE | 2022-07-16 07:52 | NUR ---
PHYSICAL THERAPY CO-SIGN The Physical Therapy Progress Notes documented by Thread Dresser have been reviewed. Reviewed/Co-Signed by: Hitesh Dickson Documentation Done by:RITU MALCOLM Addendum: 07/16/22 at 6972 by Hitesh Dickson PT Amended: Links added.
== END 2022-07-15 19:50 | DRG 510 ==
LOC: SED 14:47 → EDBD 17:18 → STU 17:18 → SMU 06-09 13:29
PROVIDERS: ADMIT Internal Medicine; ATTEND Internal Medicine
PROC: 0DH67UZ Insertion of Feeding Device into Stomach, Via Natural or Artificial Opening (ICD-10-PCS; 2022-06-08)
PROC: 0T9B70Z Drainage of Bladder with Drainage Device, Via Natural or Artificial Opening (ICD-10-PCS; 2022-06-08)
PROC: 0PSJ35Z Reposition Left Radius with External Fixation Device, Percutaneous Approach (ICD-10-PCS; principal; 2022-06-28)
PROC: 05HY33Z Insertion of Infusion Device into Upper Vein, Percutaneous Approach (ICD-10-PCS; 2022-06-28)
PROC: B54NZZA Ultrasonography of Left Upper Extremity Veins, Guidance (ICD-10-PCS; 2022-06-28)
DX: S52.511A Displaced fracture of right radial styloid process, initial encounter for closed fracture (principal); E43 Unspecified severe protein-calorie malnutrition; N17.0 Acute kidney failure with tubular necrosis; G93.41 Metabolic encephalopathy; M62.82 Rhabdomyolysis; I24.8 Other forms of acute ischemic heart disease; I50.30 Unspecified diastolic (congestive) heart failure; I82.622 Acute embolism and thrombosis of deep veins of left upper extremity; F03.918 Unspecified dementia, unspecified severity, with other behavioral disturbance; E87.1 Hypo-osmolality and hyponatremia; T82.818A Embolism due to vascular prosthetic devices, implants and grafts, initial encounter; E87.5 Hyperkalemia; N90.89 Other specified noninflammatory disorders of vulva and perineum; E86.0 Dehydration; R32 Unspecified urinary incontinence; I11.0 Hypertensive heart disease with heart failure; E83.39 Other disorders of phosphorus metabolism; D64.9 Anemia, unspecified; W18.39XA Other fall on same level, initial encounter; Z20.822 Contact with and (suspected) exposure to COVID-19; Z88.8 Allergy status to other drugs, medicaments and biological substances; Z68.23 Body mass index [BMI] 23.0-23.9, adult; Y93.89 Activity, other specified; Y92.89 Other specified places as the place of occurrence of the external cause; Y99.8 Other external cause status
CPT/HCPCS: 36415; 70450-TC; 71045; 76000; 76376; 80048; 80053; 80061; 80307; 81000; 81003; 82009; 82140; 82550; 82553; 82962; 83605; 83690; 83735; 83880; 84100; 84443; 84478; 84484; 85025; 85610-TC; 85730-TC; 86140; 87040; 87070-TC; 87081; 92610-GN; 93005; 93306; 93971; 96361; 96374; 96375; 97110-GP; 97112-GP; 97116-GP; 97163-GP; 97530-GP; 99285; C1713; C9113; G0378; G0480; G0481; G0482; J1100; J1200; J1650; J1815; J2405; J2704; J3010; J3475; J3480; J7030; J7050; J7060; J7120; J7131